=== PATIENT | female | born 1950 | race Caucasian/White ===

== ENCOUNTER 2022-04-09 22:51 | Emergency (ER) | payer MEDICARE, SELFPAY ==
[2022-04-09 22:53] VITALS: BMI 23.8
[2022-04-09 22:58] VITALS: BP 195/99; PULSE 85; RESP 14; TEMP 36.8; O2SAT 99
--- NOTE | 2022-04-09 22:58 | CTR_ITS ---
PROCEDURE INFORMATION: Exam: CT Abdomen And Pelvis Without Contrast Exam date and time: 04/09/2022 11:11 PM Age: 71 years old Clinical indication: Abdominal pain; Patient HX: Left flank pain with hematuria. ; Additional info: Left flank pain, hematuria TECHNIQUE: Imaging protocol: Computed tomography of the abdomen and pelvis without contrast. Radiation optimization: All CT scans at this facility use at least one of these dose optimization techniques: automated exposure control; mA and/or kV adjustment per patient size (includes targeted exams where dose is matched to clinical indication); or iterative reconstruction. Other protocol: This patient has received 0 known CTs and 0 known cardiac nuclear medicine studies in the 12 months prior to the current study. COMPARISON: No relevant prior studies available. RADIATION DOSE METRICS: Total DLP (mGy-cm): 385.43 FINDINGS: Emphysematous changes. Bibasilar atelectasis. Liver: Normal. No mass. Gallbladder and bile ducts: Normal. No calcified stones. No ductal dilation. Pancreas: Normal. No ductal dilation. Spleen: Normal. No splenomegaly. Adrenal glands: Normal. No mass. Kidneys and ureters: Left proximal to mid ureter 4.1 mm calculus with moderate hydronephrosis and hydroureter with perinephric edema perhaps reflecting pyelonephritis. Left kidney lower pole punctate nonobstructing renal calyceal stones. Stomach and bowel: Diverticulosis without diverticulitis. Appendix: No evidence of appendicitis. Intraperitoneal space: Unremarkable. No free air. No significant fluid collection. Vasculature: Unremarkable. No abdominal aortic aneurysm. Lymph nodes: Unremarkable. No enlarged lymph nodes. Urinary bladder: Unremarkable as visualized. Reproductive: Unremarkable as visualized. Bones/joints: Unremarkable. No acute fracture. Soft tissues: Unremarkable. CT/CT kidney stone [id number] IMPRESSION: 1. Left proximal to mid ureter 4.1 mm calculus with moderate hydronephrosis and hydroureter with perinephric edema perhaps reflecting pyelonephritis. 2. Diverticulosis without diverticulitis. 3. Emphysematous changes. 4. Bibasilar atelectasis. 5. Left kidney lower pole punctate nonobstructing renal calyceal stones.
--- NOTE | 2022-04-09 22:58 | W.ED.ABDPA2 ---
HPI - Abdominal Pain General: Chief Complaint: Abdominal Pain Stated Complaint: L FLANK PAIN Time Seen by Provider: 04/09/22 22:58 History of Present Illness: 71-year-old female comes in today with complaints of left flank pain radiating into the groin. Patient noticed some blood about 2 weeks ago that cleared up from her urine then last night she started having some pain and noticing blood again. Patient reports tonight the pain was worse and she was unable to tolerate at home and came into the ER for further evaluation. Patient reports some nausea but no vomiting. Patient does report some chills at times. Associated Symptoms: Reports hematuria Review of Systems : Reports: flank pain and hematuria PFSH ED PFSH: Medical History (Updated 04/09/22 @ 23:43 by JENIFFER Romo) Hyperlipidemia Hypertension Family History Denies family history of Diabetes CAD (coronary artery disease) Cancer Social History Smoking and tobacco status: never smoked Alcohol intake: current Alcohol intake frequency: holidays/special occasions only Physical Exam Const: COMMON NORMALS: patient oriented x3 HENMT: COMMON NORMALS: normocephalic HEAD & SCALP: normocephalic Neck/C-Spine: COMMON NORMALS: full ROM Resp: COMMON NORMALS: normal respiratory effort Cardio: COMMON NORMALS: regular rate RATE: regular rate GI: COMMON NORMALS: Soft to palpation PALPATION: Yes Soft to palpation and Yes Tenderness to palpation present (GI) Details: LLQ : COMMON NORMALS: Yes no CVA tenderness BLADDER/KIDNEY EXAM: Yes no CVA tenderness Back/Pelvis: COMMON NORMALS: no CVA tenderness Extremity: COMMON NORMALS: no pedal edema Neuro: COMMON NORMALS: patient oriented x3 Skin: COMMON NORMALS: turgor normal GENERAL SKIN EXAM: turgor normal Course Vital Signs: Vital signs: Vital Signs Temperature 98.3 F 04/09/22 22:58 Pulse Rate 85 04/09/22 22:58 Respiratory Rate 18 04/09/22 23:08 Blood Pressure 195/99 04/09/22 22:58 Pulse Oximetry 99 04/09/22 22:58 Oxygen Delivery Me thod 04/09/22 22:58 MDM - Abdominal Pain Medical Decision Making 71-year-old female comes in today with complaints of left flank pain radiating to the groin. Abdomen is soft with some left lower quadrant tenderness. Vital signs are normal except for elevation of blood pressure 195 systolic. Differential diagnosis includes UTI, renal calculi, pyelonephritis. CBC was unremarkable. CMP did note a mild bump in the creatinine 1.4. CT of the abdomen pelvis noted a 4 mm stone in the mid left ureter with some mild perinephric stranding, urinalysis had a large amount of blood. No sign of serious infection was noted. Due to the perinephric stranding I did go ahead and give 1 g of ceftriaxone. Patient pain was brought under control by 2 mg of morphine sulfate. Patient was written prescriptions for hydrocodone, tamsulosin, and ondansetron. Reviewed recommendations with patient with need for follow-up or return to the ER. Patient reported understanding and agreed to plan. Case management was requested assistance for follow-up appointment with urology. Lab Data 04/09/22 22:59 04/09/22 22:59 Labs/Radiology: Radiology Impressions Abdomen/Pelvis CT 04/09/22 22:58 IMPRESSION: 1. Left proximal to mid ureter 4.1 mm calculus with moderate hydronephrosis and hydroureter with perinephric edema perhaps reflecting pyelonephritis. 2. Diverticulosis without diverticulitis. 3. Emphysematous changes. 4. Bibasilar atelectasis. 5. Left kidney lower pole punctate nonobstructing renal calyceal stones. Laboratory Results WBC 11.6 10^3/uL (4.0-10.0) H 04/09/22 22: RBC 4.87 10^6/uL (4.1-5.3) 04/09/22 22:59 Hgb 14.4 g/dL (11.5-15.3) 04/09/22 22: Hct 43.5 % (37.0-47.0) 04/09/22 22: MCV 89.3 fl (81-99) 04/09/22 22:59 MCH 29.6 pg (28.0-34.0) 04/09/22 22: MCHC 33.1 g/dL (30.0-36.0) 04/09/22 22: RDW 12.1 % (12.1-15.1) 04/09/22 22:59 Plt Count 264 10^3/cmm (130-400) 04/09/22 22:59 MPV 10.4 fL (7.4-10.4) 04/09/22 22:59 Neut % (Auto) 80.9 % 04/09/22 22:59 Lymph % (Auto) 12.4 % 04/09/22 22:59 [place] % (Auto) 5.9 % 04/09/22 22:59 Eos % (Auto) 0.3 % 04/09/22 22:59 Baso % (Auto) 0.3 % 04/09/22 22:59 Neut # (Auto) 9.40 10^3/uL (1.8-7.7) H 04/09/22 22:59 Lymph # (Auto) 1.4 10^3/uL (0.8-4.8) 04/09/22 22:59 [place] # (Auto) 0.7 10^3/uL (0.2-0.9) 04/09/22 22:59 Eos # (Auto) 0.0 10^3/uL (0.0-0.8) 04/09/22 22:59 Baso # (Auto) 0.0 10^3/uL (0.0-0.1) 04/09/22 22:59 Nucleated RBC % (auto) 0 % 04/09/22 22:59 Nucleated RBCs # 0.0 /100WBC 04/09/22 22:59 Sodium 138 mmol/L (136-145) 04/09/22 22:59 Potassium 4.0 mmol/L (3.5-5.1) 04/09/22 22:59 Chloride 100 mmol/L (98-107) 04/09/22 22:59 Carbon Dioxide 24 mmol/L (22-29) 04/09/22 22:59 Anion Gap 18.0 (5-19) 04/09/22 22:59 BUN 32 mg/dL (8-23) H 04/09/22 22:59 Creatinine 1.4 mg/dL (0.5-0.9) H 04/09/22 22:59 GFR Calculation Not Reportable 04/09/22 22:59 Glucose 163 mg/dL (65-115) H 04/09/22 22:59 Calculated Osmolality 296 mOsm/kg (285-295) H 04/09/22 22:59 Calcium 9.9 mg/dL (8.5-10.5) 04/09/22 22:59 Total Bilirubin 0.5 mg/dL (0.15-1.2) 04/09/22 22:59 AST 30 U/L (0-32) 04/09/22 22:59 ALT 24 U/L (0-33) 04/09/22 22:59 Alkaline Phosphatase 100 U/L (35-105) 04/09/22 22:59 Total Protein 7.6 g/dL (6.6-8.7) 04/09/22 22:59 Albumin 4.6 g/dL (3.5-5.2) 04/09/22 22:59 Globulin 3.0 g/dL (1.3-4.6) 04/09/22 22:59 Lipase 28 U/L (13-60) 04/09/22 22:59 Urine Color Yellow (Yellow) 04/09/22 23:10 Urine Appearance Sl cloudy (CLEAR) A 04/09/22 23:10 Urine pH 6 (5-7) 04/09/22 23:10 Ur Specific [place] 1.020 (1.005-1.030) 04/09/22 23:10 Urine Protein Trace (Negative) 04/09/22 23:10 Urine Glucose (UA) Norm (Normal) 04/09/22 23:10 Urine Ketones 1+ (Negative) H 04/09/22 23:10 Urine Blood 3+ (Negative) H 04/09/22 23:10 Urine Nitrate Negative (Negative) 04/09/22 23:10 Urine Bilirubin Neg (Negative) 04/09/22 23:10 Urine Urobilinogen Norm mg/dL (Negative) 04/09/22 23:10 Ur Leukocyte Esterase 1+ (Negative) H 04/09/22 23:10 Urine RBC Too numerous to cnt /hpf (0-2) H 04/09/22 23:10 Urine WBC 10-15 /hpf (0-5) H 04/09/22 23:10 Ur Squamous Epith Cells 0-4 /hpf (0-5) H 04/09/22 23:10 Ur Renal Epithelial Cell 0-1 /hpf 04/09/22 23:10 Amorphous Sediment Not Reportable 04/09/22 23:10 Urine Bacteria 2+ /hpf (NONE) H 04/09/22 23:10 Discharge Plan Discharge Patient Disposition: Home Clinical Impression: Ureteral calculus, left Condition: Stable Prescriptions: New tamsulosin 0.4 mg capsule 0.4 mg PO DAILY Qty: 14 0RF ondansetron 4 mg tablet,disintegrating 4 mg PO Q8H PRN (Reason: nausea and vomiting) Qty: 14 0RF hydrocodone-acetaminophen 5-325 mg tablet 1 tab PO Q6H PRN (Reason: pain (scale score 7-10)) Qty: 20 0RF No Action pravastatin 40 mg tablet 40 mg PO DAILY aspirin [Adult Low Dose Aspirin] 81 mg tablet,delayed release (DR/EC) 81 mg PO DAILY magnesium 250 mg tablet 250 mg PO DAILY cholecalciferol (vitamin D3) 25 mcg (1,000 unit) capsule 25 mcg PO DAILY omega 4-[id number]-[id number]-fish oil [Fish Oil] 60-90-500 mg capsule 1 cap PO DAILY [id number]-Ca carb-vit K 18 mg iron-400 mcg-500 mg tablet 1 tab PO DAILY Discharge Orders: Discharge ED (Routine); Ordered 04/09/22 Ordered By: Philippe Tello Discharge Diet: Usual diet Discharge Activity: Increase activity as tolerated Activity Restrictions/Additional Instructions: Home and rest. Take medication as directed for pain and discomfort. Use hydrocodone 5 mg tablets 1 tablet every 6 hours as needed for pain. Use ondansetron 4 mg 1 tablet every 8 hours as needed for nausea or vomiting. Use tamsulosin daily to allow for laxation of the ureter and passage of the stone. Follow-up with urologist for further treatment and evaluation. Case management will contact you regarding the appointment for the urology. Return to the ER for worsening symptoms such as high fever greater than 100.4, inability to hold fluids down, or uncontrolled pain. 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
[2022-04-09 23:08] VITALS: RESP 18
[2022-04-09] MEDS: morphine 4 mg/mL SDV 1 mL 2 MG IVP (23:08)
[2022-04-09 23:17] LABS: Basophils % 0.3 %; Eosinophils % 0.3 %; Hematocrit 43.5 % (37.0-47.0); Hemoglobin 14.4 g/dL (11.5-15.3); Lymphocytes # 1.4 10^3/uL (0.8-4.8); Lymphocytes % 12.4 %; Mean Corpuscular HGB Conc 33.1 g/dL (30.0-36.0); Mean Corpuscular Hemoglobin 29.6 pg (28.0-34.0); Mean Corpuscular Volume 89.3 fl (81-99); Mean Platelet Volume 10.4 fL (7.4-10.4); Monocytes # 0.7 10^3/uL (0.2-0.9); Monocytes % 5.9 %; Neutrophils % 80.9 %; Nucleated Red Blood Cells % 0 %; Platelet Count 264 10^3/cmm (130-400); Red Blood Count 4.87 10^6/uL (4.1-5.3); Red Cell Distribution Width 12.1 % (12.1-15.1); White Blood Count 11.6 10^3/uL (4.0-10.0)
[2022-04-09 23:21] LABS: Alanine Aminotransferase 24 U/L (0-33); Albumin Level 4.6 g/dL (3.5-5.2); Alkaline Phosphatase 100 U/L (35-105); Aspartate Amino Transferase 30 U/L (0-32); Blood Urea Nitrogen 32 mg/dL (8-23); Calcium 9.9 mg/dL (8.5-10.5); Carbon Dioxide 24 mmol/L (22-29); Chloride 100 mmol/L (98-107); Glucose 163 mg/dL (65-115); Lipase 28 U/L (13-60); Osmolality Calculated 296 mOsm/kg (285-295); Sodium 138 mmol/L (136-145); Total Bilirubin 0.5 mg/dL (0.15-1.2); Total Protein 7.6 g/dL (6.6-8.7)
[2022-04-09 23:31] LABS: Urine Color Yellow (Yellow)
[2022-04-09 23:32] LABS: Add Urine Microscopic? YES; Bilirubin Urine Neg (Negative); Blood Urine 3+ (Negative); Glucose Urine UA Norm (Normal); Ketones Urine 1+ (Negative); Leukocyte Esterase Urine 1+ (Negative); Nitrate Urine Negative (Negative); Protein Urine Trace (Negative); RBC Urine TOO NUMEROUS TO CNT /hpf (0-2); Renal Epithelial Cells Urine 0-1 /hpf; Squamous Epithelial Cell Urine 0-4 /hpf (0-5); Urobilinogen Urine Norm (Negative); pH Urine 6 (5-7)
[2022-04-09 23:33] LABS: Add Urine Culture? Yes; Bacteria Urine 2+ /hpf
[2022-04-10] MEDS: cefTRIAXone 1,000 MG in sodium chloride 0.9% (plus) 50 ML 100 MG IV (00:12)
[2022-04-10] MEDS: morphine 4 mg/mL SDV 1 mL IVP (00:56)
[2022-04-10] MEDS: HYDROcodone-acetaminophen 5-325 mg Tablet 2 TAB PO (00:57)
--- NOTE | 2022-04-10 10:50 | DCPLANNER ---
Addendum entered by Stella Kilgore 04/10/22 15:47: manager ethics received the following message from the urology clinic regarding follow up appointment: Refer patient elsewhere Thank you. On 04/10/22 @ 11:19 Stella Kilgore Wrote To Urology Front Office Just to clarify, do I need to refer patient somewhere else, or will an appointment be scheduled for patient when he returns? On 04/10/22 @ 10:52 Henrietta Ramirez Wrote To Stella Kilgore Dr. Zaman is out of the office until 04/20/22 manager ethics called and spoke with patient to confirm where patient would like to be referred to. Patient stated that she would like to wait and follow up and talk with her pcp. 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 Original Note: manager ethics had message to schedule a follow up appointment for patient with urology. manager ethics sent patients information to the front office staff at urology. Patients information will be printed and reviewed. Clinic will call patient with appointment information.
== END 2022-04-10 01:33 | disposition home or self-care (01) ==
PROVIDERS: Emergency Provider Nurse Practitioner Family; PCP Family Medicine
DX: N13.2 Hydronephrosis with renal and ureteral calculous obstruction (principal); Z79.82 Long term (current) use of aspirin; E78.5 Hyperlipidemia, unspecified; I10 Essential (primary) hypertension
CPT/HCPCS: 74176; 80053; 81001; 83690; 85025; 87086; 96365; 96375; 96376; 99285; J0696; J2270

== ENCOUNTER → 2022-04-13 10:10 | Outpatient (BNVA) | payer MEDICARE, SELFPAY | PROVIDERS: PCP Family Medicine; Visit Provider Family Medicine | DX: R31.9 Hematuria, unspecified (principal); N20.1 Calculus of ureter; I10 Essential (primary) hypertension; E78.5 Hyperlipidemia, unspecified | CPT/HCPCS: 81000 ==

== ENCOUNTER → 2022-06-22 09:18 | Outpatient (BNVA) | payer MEDICARE, SELFPAY | PROVIDERS: PCP Family Medicine; Visit Provider Family Medicine | DX: E78.5 Hyperlipidemia, unspecified (principal); I10 Essential (primary) hypertension | CPT/HCPCS: 80053; 80061; 84439; 84443; 85025 ==

== ENCOUNTER → 2023-09-27 16:47 | Outpatient (BNVA) | payer MEDICARE, SELFPAY | PROVIDERS: PCP Family Medicine; Visit Provider Nurse Practitioner Family | DX: E78.5 Hyperlipidemia, unspecified (principal) | CPT/HCPCS: 80053; 80061 ==

== ENCOUNTER → 2024-03-31 13:00 | Outpatient (BNVA) | payer MEDICARE, SELFPAY | PROVIDERS: PCP Nurse Practitioner Family; Visit Provider Nurse Practitioner Family | DX: I10 Essential (primary) hypertension (principal) | CPT/HCPCS: 80053; 80061 ==

== ENCOUNTER 2024-05-19 22:57 | Inpatient (IN) | payer MEDICARE, SELFPAY ==
[2024-05-19 23:03] VITALS: BP 125/83; PULSE 111; RESP 18; TEMP 36.3; O2SAT 93
--- NOTE | 2024-05-19 23:25 | CTR_ITS ---
PROCEDURE INFORMATION: Exam: CT Abdomen And Pelvis Without Contrast Exam date and time: 05/20/2024 2:25 AM Age: 74 years old Clinical indication: Pain and abnormal findings; Abnormal lab test; Other: Microhematuria; Nausea and vomiting; Abdominal pain; Localized; Lower abd pain with n/v and hematuria. History of renal stones. ; Additional info: Abdominal pain, hematuria, history of kidney stones TECHNIQUE: Imaging protocol: Computed tomography of the abdomen and pelvis without contrast. Radiation optimization: All CT scans at this facility use at least one of these dose optimization techniques: automated exposure control; mA and/or kV adjustment per patient size (includes targeted exams where dose is matched to clinical indication); or iterative reconstruction. COMPARISON: CT kidney stone [id number] 04/09/2022 11:11 PM RADIATION DOSE METRICS: Total DLP (mGy-cm): 433.41 FINDINGS: Lungs: Extensive bronchiectasis and chronic inflammatory change bases. Liver: Normal. No mass. Gallbladder and biliary ducts: Dependent gallstones and sludge. Pancreas: Heterogeneous indistinct pancreas. Extensive surrounding fluid. Spleen: Normal. No splenomegaly. Adrenal glands: Normal. No mass. Kidneys and ureters: Normal. No hydronephrosis. Stomach and bowel: Diverticulosis colon. Appendix: No evidence of appendicitis. Intraperitoneal space: Moderate ascites. Vasculature: Unremarkable. No abdominal aortic aneurysm. Lymph nodes: Unremarkable. No enlarged lymph nodes. Urinary bladder: Unremarkable as visualized. Reproductive: Unremarkable as visualized. Bones/joints: Unremarkable. No acute fracture. Soft tissues: Unremarkable. CT/CT kidney stone [id number] IMPRESSION: Findings compatible with severe pancreatitis.
[2024-05-19 23:55] LABS: Basophils % 0.2 %; Hematocrit 49.4 % (36-47); Lymphocytes % 7.8 %; Mean Corpuscular HGB Conc 33.4 g/dL (30-55); Mean Corpuscular Hemoglobin 30.1 pg (27-33); Mean Corpuscular Volume 90.1 fl (85-98); Mean Platelet Volume 10.6 fL (7.4-10.4); Monocytes # 0.8 10^3/uL (0.2-0.9); Monocytes % 6.1 %; Neutrophils # 10.84 10^3/uL (1.8-7.7); Neutrophils % 85.7 %; Nucleated Red Blood Cells % 0 %; Platelet Count 224 10^3/cmm (157-399); Red Blood Count 5.48 10^6/uL (3.85-5.65); Red Cell Distribution Width 11.9 % (12.1-15.1); White Blood Count 12.64 10^3/uL (3.29-11.43)
[2024-05-20] VITALS (23 sets, daily range): BP systolic 114–146; BP diastolic 74–90; PULSE 10–109; RESP 14–26; TEMP 36.2–37.1; O2SAT 90–98; BMI 26.1
[2024-05-20 00:12] LABS: Alanine Aminotransferase 327 U/L (0-33); Alkaline Phosphatase 160 U/L (35-105); Anion Gap 25.8 (5-19); Aspartate Amino Transferase 161 U/L (0-32); Blood Urea Nitrogen 52 mg/dL (8-23); Carbon Dioxide 17 mmol/L (22-29); Chloride 93 mmol/L (98-107); Creatinine Clr Calc Pharmacy 19.1258; Globulin 3.2 g/dL (1.3-4.6); Glucose 366 mg/dL (65-115); Magnesium 2.1 mg/dL (1.7-2.3); Osmolality Calculated 301 mOsm/kg (285-295); Potassium 4.8 mmol/L (3.5-5.1); Sodium 131 mmol/L (136-145); Total Bilirubin 0.7 mg/dL (0.15-1.2); Total Protein 7.2 g/dL (6.6-8.7)
[2024-05-20] MEDS: sodium chloride 0.9% 1,000 ML 999 ML IV ×2 (02:46→10:20)
[2024-05-20] MEDS: morphine 4 mg/mL SDV 1 mL IVP (02:47)
[2024-05-20] MEDS: ondansetron 2 mg/ML SDV 2 mL 4 MG IVP (02:47)
--- NOTE | 2024-05-20 02:49 | W.ED.ABDPA2 ---
Documented by User: Kodak Chambers DO 05/20/24 05:07 HPI - Abdominal Pain General: Chief Complaint: Abdominal Pain Stated Complaint: ABD Pain Time Seen by Provider: 05/20/24 02:27 History of Present Illness: Patient presents to the ER with complaints of nausea vomiting abdominal pain. Started last night. Abdomen is tender diffusely and hurts to move due to her take a big deep breath. Patient noted she might have some blood in her urine yesterday. She does have a history of renal stones, denies any abdominal surgery. Denies any fevers chills Related Data Home Medications ?Medication ?Instructions ?Recorded ?Confirmed aspirin 81 mg tablet,delayed 81 mg PO DAILY 03/23/22 05/20/24 release (Adult Low Dose Aspirin) mecobalamin (vitamin B12) 1,000 1,000 mcg sublingual DAILY 04/02/23 05/20/24 mcg disintegrating tablet,sublingual krill oil 500 mg capsule 500 mg PO DAILY 03/31/24 05/20/24 multivitamin 1 tab PO DAILY 03/31/24 05/20/24 Previous Rx's ?Medication ?Instructions ?Recorded lisinopril 20 mg tablet 20 mg PO DAILY #90 tabs 12/01/23 Allergies Allergy/AdvReac Type Severity Reaction Status Date / Time No Known Allergies Allergy Verified 05/19/24 23:10 Review of Systems General: Reports: 10 or more systems reviewed and unremarkable except in HPI and below PFSH ED PFSH: Medical History (Updated 05/20/24 @ 16:20 by Bienvenido Kurtz DO) Hypertension Hyperlipidemia Surgical History (Updated 05/20/24 @ 15:04 by Winston Valverde MD) History of tonsillectomy History of ear surgery RIGHT EAR DRUM Family History Denies family history of Diabetes CAD (coronary artery disease) Cancer Social History Smoking and tobacco/nicotine status: never used tobacco/nicotine Alcohol intake: current Alcohol intake frequency: holidays/special occasions only Physical Exam Const: COMMON NORMALS: no acute distress, average body habitus, patient oriented x3, no limitations, healthy appearing, alert and well nourished HENMT: COMMON NORMALS: normocephalic, atraumatic, hearing grossly normal bilaterally, external ears normal, Normal external nose present, moist oral mucous membranes and oropharynx normal HEAD & SCALP: normocephalic and atraumatic NOSE: Normal external nose present EXTERNAL EAR: Yes external ears normal Neck/C-Spine: COMMON NORMALS: no JVD Chest: COMMONS NORMALS: normal inspection of the chest and normal palpation of entire chest wall Resp: COMMON NORMALS: normal respiratory effort, No retractions, No use of accessory muscles and clear to auscultation bilaterally AUSCULTATION: clear to auscultation bilaterally Cardio: COMMON NORMALS: no JVD, regular rate, regular rhythm, S1 normal heart sound present, S2 normal heart sound present, No gallops present (Cardio), No clicks present (Cardio), No murmurs present (Cardio) and No rub (Cardio) RATE: regular rate RHYTHM: regular rhythm HEART SOUNDS: S1 normal heart sound present and S2 normal heart sound present GI: COMMON NORMALS: Normal to inspection, nondistended, normoactive bowel sounds present, Soft to palpation, No hepatosplenomegaly present and no masses; negative for non-tender (Diffusely exquisitely tender throughout) PALPATION: Yes Soft to palpation and Yes No hepatosplenomegaly present Neuro: COMMON NORMALS: patient oriented x3 SENSORIUM/ORIENTATION: Yes alert Course Vital Signs: Vital signs: Vital Signs Temperature 97.1 F L 05/20/24 13:41 Pulse Rate 108 H 05/20/24 13:41 Respiratory Rate 14 05/20/24 13:41 Blood Pressure 114/74 05/20/24 13:41 Pulse Oximetry 93 05/20/24 13:41 Oxygen Delivery Me thod Room Air 05/20/24 13:41 MDM - Abdominal Pain Medical Decision Making Lab work showed CBC at 12.6, BUN/creatinine 52 and 2.3, lactic acid 5.9, AST 160, ALT 327, alk phos 160, total bili 0.7, lipase 2703. CT scan showed findings compatible with severe pancreatitis, but it also says she does have a gallstone but does not see anything about ductal dilation.. Patient was given septic bolus of fluid, 3.375 g of Zosyn, 4 mg of morphine, 4 mg of Zofran, these results was discussed with the patient. These results was discussed with Dr. Wisdom. He is concerned she may have gallstone pancreatitis or a stone in one of her ducts. He requests an ultrasound right upper quadrant and an MRCP. If these are normal he will admit her here. Medical Records I reviewed the patient's medical records. Lab Data I reviewed the patient's lab results. 05/20/24 15:41 05/20/24 00:00 Labs/Radiology: Radiology Impressions Abdomen/Pelvis CT 05/19/24 23:25 IMPRESSION: Findings compatible with severe pancreatitis. Abdomen Ultrasound 05/20/24 05:06 IMPRESSION: 1. Cholelithiasis and mild gallbladder wall thickening, likely reactive. 2. Common bile duct dilatation to approximately 1 cm. Correlate with LFTs and, if clinically indicated, ERCP or MRCP. 3. Small upper abdominal ascites. 4. Echogenic right kidney, suggesting medical renal disease. 5. Additional findings, as above. Cholangiopancreatography MRI 05/20/24 06:20 IMPRESSION: 1. There is some progressive abdominal fluid, inflammatory appearance overall with the clinically provided history provided of pancreatitis. 2. The gallbladder is patulous with some associated wall thickening and layering sludge, small gallstones. Some superimposed early inflammation could also present in this fashion. 3. There is some central ductal dilatation although no persistent filling defects are currently appreciated. Distal, ampullary level evaluation is however somewhat limited. Overall, consider pancreatic and hepatobiliary laboratory profile studies to evaluate for interval progression. If there is persistent clinical concern for partial obstructive or clinical jaundice type changes then consider direct visualization with ERCP when clinically feasible. Laboratory Results WBC 12.64 10^3/uL (3.29-11.43) H 05/19/24 23:47 RBC 5.48 10^6/uL (3.85-5.65) 05/19/24 23:47 Hgb 16.50 g/dL (11.27-16.99) 05/19/24 23:47 Hct 49.4 % (36-47) H 05/19/24 23:47 MCV 90.1 fl (85-98) 05/19/24 23:47 MCH 30.1 pg (27-33) 05/19/24 23:47 MCHC 33.4 g/dL (30-55) 05/19/24 23:47 RDW 11.9 % (12.1-15.1) L 05/19/24 23:47 Plt Count 224 10^3/cmm (157-399) 05/19/24 23:47 MPV 10.6 fL (7.4-10.4) H 05/19/24 23:47 Neut % (Auto) 85.7 % 05/19/24 23:47 Lymph % (Auto) 7.8 % 05/19/24 23:47 [place] % (Auto) 6.1 % 05/19/24 23:47 Eos % (Auto) 0.0 % 05/19/24 23:47 Baso % (Auto) 0.2 % 05/19/24 23:47 Neut # (Auto) 10.84 10^3/uL (1.8-7.7) H 05/19/24 23:47 Lymph # (Auto) 1.0 10^3/uL (0.8-4.8) 05/19/24 23:47 [place] # (Auto) 0.8 10^3/uL (0.2-0.9) 05/19/24 23:47 Eos # (Auto) 0.0 10^3/uL (0.0-0.8) 05/19/24 23:47 Baso # (Auto) 0.0 10^3/uL (0.0-0.1) 05/19/24 23:47 Nucleated RBC % (auto) 0 % 05/19/24 23:47 Nucleated RBCs # 0.0 /100WBC 05/19/24 23:47 Sodium 136 mmol/L (136-145) 05/20/24 00:00 Potassium 5.2 mmol/L (3.5-5.1) H 05/20/24 00:00 Chloride 95 mmol/L (98-107) L 05/20/24 00:00 Carbon Dioxide 14 mmol/L (22-29) L 05/20/24 00:00 Anion Gap 32.2 (5-19) H 05/20/24 00:00 BUN 52 mg/dL (8-23) H 05/20/24 00:00 Creatinine 2.0 mg/dL (0.5-0.9) H 05/20/24 00:00 GFR Calculation Not Reportable 05/20/24 00:00 Glucose 333 mg/dL (65-115) H 05/20/24 00:00 Calculated Osmolality 309 mOsm/kg (285-295) H 05/20/24 00:00 Lactic Acid 5.9 mmol/L (0.5-2.2) H* 05/20/24 00:00 Lactic Acid (Sepsis) 4.0 mmol/L (0.5-2.2) H 05/20/24 05:00 Calcium 9.0 mg/dL (8.5-10.5) 05/20/24 00:00 Magnesium 2.1 mg/dL (1.7-2.3) 05/19/24 23:47 Iron 28 ug/dL (37-145) L 05/20/24 00:00 TIBC 266 mcg/dl 05/20/24 00:00 % Saturation 10.5 % (20-50) L 05/20/24 00:00 Unsat Iron Binding 238 ug/dL (112-347) 05/20/24 00:00 Total Bilirubin 0.7 mg/dL (0.15-1.2) 05/20/24 00:00 AST 163 U/L (0-32) H 05/20/24 00:00 ALT 330 U/L (0-33) H 05/20/24 00:00 Alkaline Phosphatase 153 U/L (35-105) H 05/20/24 00:00 Total Protein 7.1 g/dL (6.6-8.7) 05/20/24 00:00 Albumin 4.2 g/dL (3.5-5.2) 05/20/24 00:00 Globulin 2.9 g/dL (1.3-4.6) 05/20/24 00:00 Triglycerides 118 mg/dL (0-150) 05/20/24 00:00 Lipase 2703 U/L (13-60) H 05/20/24 00:00 Vitamin B12 1452 pg/mL (232-1245) H 05/20/24 00:00 Procalcitonin 0.61 ng/mL (0-0.5) H 05/20/24 00:00 TSH 1.21 uIU/mL (0.27-4.20) 05/20/24 00:00 Urine Color Dark yellow (Yellow) A 05/20/24 04:17 Urine Appearance Cloudy (CLEAR) A 05/20/24 04:17 Urine pH 5.0 (5-7) 05/20/24 04:17 Ur Specific Walker 1.020 (1.005-1.030) 05/20/24 04:17 Urine Protein 2+ (Negative) A 05/20/24 04:17 Urine Glucose (UA) 2+ (Normal) H 05/20/24 04:17 Urine Ketones Trace (Negative) 05/20/24 04:17 Urine Blood 1+ (Negative) A 05/20/24 04:17 Urine Nitrate Negative (Negative) 05/20/24 04:17 Urine Bilirubin Negative (Negative) 05/20/24 04:17 Urine Urobilinogen 1.0 mg/dL (Negative) 05/20/24 04:17 Ur Leukocyte Esterase Negative (Negative) 05/20/24 04:17 Urine RBC 0-2 /hpf (0-2) 05/20/24 04:17 Urine WBC 0-5 /hpf (0-5) 05/20/24 04:17 Ur Squamous Epith Cells 11-20 /hpf (0-5) H 05/20/24 04:17 Amorphous Sediment Not Reportable 05/20/24 04:17 Urine Bacteria Trace /hpf (NONE) 05/20/24 04:17 Hyaline Casts 44.66 /lpf 05/20/24 04:17 All radiology interpretation(s) finalized by discharge Discharge Plan Discharge Patient Disposition: Admitted As Inpatient Admit Provider: Winston Valverde Clinical Impression: Acute pancreatitis, Acute kidney injury, Sepsis Condition: Stable Coding Level of Care Code ED Storyboard Artist for Chg Fwd Documented by User: Bienvenido Kurtz DO 05/20/24 16:20 HPI - Abdominal Pain General: Chief Complaint: Abdominal Pain Stated Complaint: ABD Pain Time Seen by Provider: 05/20/24 02:27 Related Data Home Medications ?Medication ?Instructions ?Recorded ?Confirmed aspirin 81 mg tablet,delayed 81 mg PO DAILY 03/23/22 05/20/24 release (Adult Low Dose Aspirin) mecobalamin (vitamin B12) 1,000 1,000 mcg sublingual DAILY 04/02/23 05/20/24 mcg disintegrating tablet,sublingual krill oil 500 mg capsule 500 mg PO DAILY 03/31/24 05/20/24 multivitamin 1 tab PO DAILY 03/31/24 05/20/24 Previous Rx's ?Medication ?Instructions ?Recorded lisinopril 20 mg tablet 20 mg PO DAILY #90 tabs 12/01/23 Allergies Allergy/AdvReac Type Severity Reaction Status Date / Time No Known Allergies Allergy Verified 05/19/24 23:10 [facility]: Medical History (Updated 05/20/24 @ 16:20 by Bienvenido Kurtz DO) Hypertension Hyperlipidemia Surgical History (Updated 05/20/24 @ 15:04 by Winston Valverde MD) History of tonsillectomy History of ear surgery RIGHT EAR DRUM Family History Denies family history of Diabetes CAD (coronary artery disease) Cancer Social History Smoking and tobacco/nicotine status: never used tobacco/nicotine Alcohol intake: current Alcohol intake frequency: holidays/special occasions only Course Vital Signs: Vital signs: Vital Signs Temperature 97.1 F L 05/20/24 13:41 Pulse Rate 108 H 05/20/24 13:41 Respiratory Rate 14 05/20/24 13:41 Blood Pressure 114/74 05/20/24 13:41 Pulse Oximetry 93 05/20/24 13:41 Oxygen Delivery Me thod Room Air 05/20/24 13:41 MDM - Abdominal Pain Medical Decision Making Lab work showed CBC at 12.6, BUN/creatinine 52 and 2.3, lactic acid 5.9, AST 160, ALT 327, alk phos 160, total bili 0.7, lipase 2703. CT scan showed findings compatible with severe pancreatitis, but it also says she does have a gallstone but does not see anything about ductal dilation.. Patient was given septic bolus of fluid, 3.375 g of Zosyn, 4 mg of morphine, 4 mg of Zofran, these results was discussed with the patient. These results was discussed with Dr. Wisdom. He is concerned she may have gallstone pancreatitis or a stone in one of her ducts. He requests an ultrasound right upper quadrant and an MRCP. If these are normal he will admit her here. Care assumed at change of shift mild dilation of the common bile duct. MRCP does not show any obstruction. Discussed with Dr. Valverde and with Dr. Hollis who will consult. Will admit orders have been written. Lab Data 05/20/24 15:41 05/20/24 00:00 Labs/Radiology: Radiology Impressions Abdomen/Pelvis CT 05/19/24 23:25 IMPRESSION: Findings compatible with severe pancreatitis. Abdomen Ultrasound 05/20/24 05:06 IMPRESSION: 1. Cholelithiasis and mild gallbladder wall thickening, likely reactive. 2. Common bile duct dilatation to approximately 1 cm. Correlate with LFTs and, if clinically indicated, ERCP or MRCP. 3. Small upper abdominal ascites. 4. Echogenic right kidney, suggesting medical renal disease. 5. Additional findings, as above. Cholangiopancreatography MRI 05/20/24 06:20 IMPRESSION: 1. There is some progressive abdominal fluid, inflammatory appearance overall with the clinically provided history provided of pancreatitis. 2. The gallbladder is patulous with some associated wall thickening and layering sludge, small gallstones. Some superimposed early inflammation could also present in this fashion. 3. There is some central ductal dilatation although no persistent filling defects are currently appreciated. Distal, ampullary level evaluation is however somewhat limited. Overall, consider pancreatic and hepatobiliary laboratory profile studies to evaluate for interval progression. If there is persistent clinical concern for partial obstructive or clinical jaundice type changes then consider direct visualization with ERCP when clinically feasible. Laboratory Results WBC 12.64 10^3/uL (3.29-11.43) H 05/19/24 23:47 RBC 5.48 10^6/uL (3.85-5.65) 05/19/24 23:47 Hgb 16.50 g/dL (11.27-16.99) 05/19/24 23:47 Hct 49.4 % (36-47) H 05/19/24 23:47 MCV 90.1 fl (85-98) 05/19/24 23:47 MCH 30.1 pg (27-33) 05/19/24 23:47 MCHC 33.4 g/dL (30-55) 05/19/24 23:47 RDW 11.9 % (12.1-15.1) L 05/19/24 23:47 Plt Count 224 10^3/cmm (157-399) 05/19/24 23:47 MPV 10.6 fL (7.4-10.4) H 05/19/24 23:47 Neut % (Auto) 85.7 % 05/19/24 23:47 Lymph % (Auto) 7.8 % 05/19/24 23:47 [place] % (Auto) 6.1 % 05/19/24 23:47 Eos % (Auto) 0.0 % 05/19/24 23:47 Baso % (Auto) 0.2 % 05/19/24 23:47 Neut # (Auto) 10.84 10^3/uL (1.8-7.7) H 05/19/24 23:47 Lymph # (Auto) 1.0 10^3/uL (0.8-4.8) 05/19/24 23:47 [place] # (Auto) 0.8 10^3/uL (0.2-0.9) 05/19/24 23:47 Eos # (Auto) 0.0 10^3/uL (0.0-0.8) 05/19/24 23:47 Baso # (Auto) 0.0 10^3/uL (0.0-0.1) 05/19/24 23:47 Nucleated RBC % (auto) 0 % 05/19/24 23: Nucleated RBCs # 0.0 /100WBC 05/19/24 23:47 Sodium 136 mmol/L (136-145) 05/20/24 00:00 Potassium 5.2 mmol/L (3.5-5.1) H 05/20/24 00:00 Chloride 95 mmol/L (98-107) L 05/20/24 00:00 Carbon Dioxide 14 mmol/L (22-29) L 05/20/24 00:00 Anion Gap 32.2 (5-19) H 05/20/24 00:00 BUN 52 mg/dL (8-23) H 05/20/24 00:00 Creatinine 2.0 mg/dL (0.5-0.9) H 05/20/24 00:00 GFR Calculation Not Reportable 05/20/24 00:00 Glucose 333 mg/dL (65-115) H 05/20/24 00:00 Calculated Osmolality 309 mOsm/kg (285-295) H 05/20/24 00:00 Lactic Acid 5.9 mmol/L (0.5-2.2) H* 05/20/24 00:00 Lactic Acid (Sepsis) 4.0 mmol/L (0.5-2.2) H 05/20/24 05:00 Calcium 9.0 mg/dL (8.5-10.5) 05/20/24 00:00 Magnesium 2.1 mg/dL (1.7-2.3) 05/19/24 23:47 Iron 28 ug/dL (37-145) L 05/20/24 00:00 TIBC 266 mcg/dl 05/20/24 00:00 % Saturation 10.5 % (20-50) L 05/20/24 00:00 Unsat Iron Binding 238 ug/dL (112-347) 05/20/24 00:00 Total Bilirubin 0.7 mg/dL (0.15-1.2) 05/20/24 00:00 AST 163 U/L (0-32) H 05/20/24 00:00 ALT 330 U/L (0-33) H 05/20/24 00:00 Alkaline Phosphatase 153 U/L (35-105) H 05/20/24 00:00 Total Protein 7.1 g/dL (6.6-8.7) 05/20/24 00:00 Albumin 4.2 g/dL (3.5-5.2) 05/20/24 00:00 Globulin 2.9 g/dL (1.3-4.6) 05/20/24 00:00 Triglycerides 118 mg/dL (0-150) 05/20/24 00:00 Lipase 2703 U/L (13-60) H 05/20/24 00:00 Vitamin B12 1452 pg/mL (232-1245) H 05/20/24 00:00 Procalcitonin 0.61 ng/mL (0-0.5) H 05/20/24 00:00 TSH 1.21 uIU/mL (0.27-4.20) 05/20/24 00:00 Urine Color Dark yellow (Yellow) A 05/20/24 04:17 Urine Appearance Cloudy (CLEAR) A 05/20/24 04:17 Urine pH 5.0 (5-7) 05/20/24 04:17 Ur Specific [place] 1.020 (1.005-1.030) 05/20/24 04:17 Urine Protein 2+ (Negative) A 05/20/24 04:17 Urine Glucose (UA) 2+ (Normal) H 05/20/24 04:17 Urine Ketones Trace (Negative) 05/20/24 04:17 Urine Blood 1+ (Negative) A 05/20/24 04:17 Urine Nitrate Negative (Negative) 05/20/24 04:17 Urine Bilirubin Negative (Negative) 05/20/24 04:17 Urine Urobilinogen 1.0 mg/dL (Negative) 05/20/24 04:17 Ur Leukocyte Esterase Negative (Negative) 05/20/24 04:17 Urine RBC 0-2 /hpf (0-2) 05/20/24 04:17 Urine WBC 0-5 /hpf (0-5) 05/20/24 04:17 Ur Squamous Epith Cells 11-20 /hpf (0-5) H 05/20/24 04:17 Amorphous Sediment Not Reportable 05/20/24 04:17 Urine Bacteria Trace /hpf (NONE) 05/20/24 04:17 Hyaline Casts 44.66 /lpf 05/20/24 04:17 Discharge Plan Discharge Patient Disposition: Admitted As Inpatient Admit Provider: Winston Valverde Clinical Impression: Acute pancreatitis, Acute kidney injury, Sepsis Condition: Stable Coding Level of Care Code ED Storyboard Artist for Bran Almaraz
[2024-05-20 03:03] LABS: Lactic Sepsis W/Reflex 5.9 mmol/L (0.5-2.2)
[2024-05-20 03:13] LABS: Lipase 2703 U/L (13-60)
[2024-05-20] MEDS: piperacillin-tazobactam 3.375 GM in sodium chloride 0.9% (plus) 50 ML IV ×2 (03:24→18:26)
[2024-05-20 04:24] LABS: Bilirubin Urine Negative (Negative); Blood Urine 1+ (Negative); Glucose Urine UA 2+ (Normal); Ketones Urine Trace (Negative); Leukocyte Esterase Urine Negative (Negative); Nitrate Urine Negative (Negative); Protein Urine 2+ (Negative); Urine Appearance Cloudy (CLEAR); Urine Color Dark Yellow (Yellow)
[2024-05-20 04:29] LABS: Add Urine Microscopic? YES; Bacteria Urine Trace /hpf; Hyaline Casts Urine 44.66 /lpf; RBC Urine 0-2 /hpf (0-2); Universal Test for UA Present (0); WBC Urine 0-5 /hpf (0-5)
[2024-05-20 04:35] LABS: Reflex Lactate Order REFLEX LACTIC ORDERD
--- NOTE | 2024-05-20 05:06 | USR_ITS ---
PROCEDURE INFORMATION: Exam: US Abdomen, Limited; Right Upper Quadrant Exam date and time: 05/20/2024 6:00 AM Age: 74 years old Clinical indication: Abdominal pain; Generalized; Additional info: Gallstones, pancreatitis, elevated liver enzymes, TECHNIQUE: Imaging protocol: Real time ultrasound of the abdomen with image documentation. Limited exam focused on the right upper quadrant. COMPARISON: CT kidney stone [id number] 05/20/2024 2:25 AM FINDINGS: Liver: Mildly echogenic, suggesting fatty infiltration. Gallbladder: Cholelithiasis and mild gallbladder wall thickening, likely reactive. Biliary ducts: Common bile duct dilatation to approximately 1 cm. No stones. Pancreas: Ill-defined and suboptimally visualized. Right kidney: Echogenic, suggesting medical renal disease. No mass. No definite stones. No hydronephrosis. Intraperitoneal space: Small upper abdominal ascites. US/US abdomen limited [id number] IMPRESSION: 1. Cholelithiasis and mild gallbladder wall thickening, likely reactive. 2. Common bile duct dilatation to approximately 1 cm. Correlate with LFTs and, if clinically indicated, ERCP or MRCP. 3. Small upper abdominal ascites. 4. Echogenic right kidney, suggesting medical renal disease. 5. Additional findings, as above.
--- NOTE | 2024-05-20 06:20 | MRR_ITS ---
PROCEDURE INFORMATION: Exam: MR Abdomen Without Contrast, Biliary System Exam date and time: 05/20/2024 8:01 AM Age: 74 years old Clinical indication: Abnormal findings; Abnormal lab test and abnormal radiologic finding of the abdomen; Radiologic exam and body structure: Ultrasound gallbladder; Abnormal function test of other organs/systems; Abdominal tenderness; Additional info: Pancreatitis, gallstones, elevated lfts and lipase TECHNIQUE: Imaging protocol: MR of the abdomen without contrast. Exam focused on the biliary system and pancreatic ducts. Routine 3D-MRCP images were acquired and processed without radiologist supervision. 505image(s) are provided. COMPARISON: 1. CT kidney stone [id number] 05/20/2024 2:[address] kidney stone [id number] 04/09/2022 11:11 PM 3. US abdomen limited [id number] 05/20/2024 6:00 AM. No previous MRCP is currently available. FINDINGS: Lungs: There appears to be some trace pleural fluid as well as some patchy atelectatic consolidation of the lung bases along with suspected granulomatous appearance. Liver: There appears to be slight heterogeneity of the hepatic parenchyma overall along with some subtle periportal tracking. This can be seen with processes including steatosis as well as hepatic disease related changes. Gallbladder and biliary ducts: The gallbladder appears patulous overall with some small stone and sludge appearance along with some fold averaging. There is borderline wall thickness of around 3.5 mm. There is some adjacent pericholecystic fluid. The common bile duct measures around 6.5 mm with no definite persistent filling defects currently appreciated. Distal, ampullary level evaluation is however somewhat limited. Pancreas: The pancreas appears overall inflamed with the edematous related signal as well as adjacent fluid signal. Parenchymal detail evaluation is otherwise limited on these noncontrast views. Spleen: There is some small splenule appearance. Adrenal glands: The adrenal glands appears similar overall. Kidneys: No interval hydronephrosis is appreciated. There appear to be some renal fluid intense related changes of the left albeit similar overall. Stomach and bowel: The bowel gas pattern appears nonobstructive.There is some ingested bowel content present. Intraperitoneal space: There is similar overall abdominal fluid present although appears to be increased in the interval including of the upper abdomen viscera. For example including thickness of the fluid adjacent to the hepatic margin is around 2 cm versus previous 1 cm. Some of the fluid, stranding abuts the adjacent bowel, viscera. Some processes including secondary inflammation could also present in this fashion. Vasculature: No interval abdominal aortic saccular aneurysmal dilatation is appreciated. Bones/joints: No diffuse acute abnormal marrow signal intensity is appreciated. Soft tissues: No significant interval subcutaneous fluid type collections are currently appreciated. Other findings: There is some motion artifact present. No other significant interval changes are appreciated. MR/MR MRCP [id number] IMPRESSION: 1. There is some progressive abdominal fluid, inflammatory appearance overall with the clinically provided history provided of pancreatitis. 2. The gallbladder is patulous with some associated wall thickening and layering sludge, small gallstones. Some superimposed early inflammation could also present in this fashion. 3. There is some central ductal dilatation although no persistent filling defects are currently appreciated. Distal, ampullary level evaluation is however somewhat limited. Overall, consider pancreatic and hepatobiliary laboratory profile studies to evaluate for interval progression. If there is persistent clinical concern for partial obstructive or clinical jaundice type changes then consider direct visualization with ERCP when clinically feasible.
--- NOTE | 2024-05-20 07:22 | PC.PHAR ---
Pt missed taking medications yesterday and has taken nothing today 05/20/24.
--- NOTE | 2024-05-20 11:05 | PC.NURSE ---
pt report and cares taken from Willa MATA at this time.
[2024-05-20] MEDS: sodium chloride 0.9% 1,000 ML 125 ML IV ×2 (11:39→18:26)
--- NOTE | 2024-05-20 11:49 | P.CONIM_ITS ---
Providers/Reason For Consult 2 Consulting Physician/Specialty*: General Surgery Reason for Consult*: Possible biliary pancreatitis Primary Care Provider: Aby Herndon NP History of Present Illness History of Present Illness Traecy Dolan is a 74 year old female Who presents to the hospital with abdominal pain and is found to have acute pancreatitis. I was consulted for evaluation for possible biliary pancreatitis. Patient denies alcohol intake. According to her last bowel movement was about 2 days ago, over the last 24 hours she was having abdominal pain nausea and vomit. Denies yellowing of the skin or eyes. No previous history of gallbladder disease. Last triglyceride level was normal. Review of Systems 2 General: Reports: 10 or more systems reviewed and unremarkable except in HPI and below Medications/Allergies Home Medications ?Medication ?Instructions ?Recorded ?Confirmed ?Last Taken ?Type aspirin 81 mg tablet,delayed 81 mg PO DAILY 03/23/22 0 05/20/24 05/18/24 History release (Adult Low Dose Aspirin) mecobalamin (vitamin B12) 1,000 1,000 mcg sublingual D AILY 04/02/23 05/20/24 05/18/24 History mcg disintegrating tablet,sublingual lisinopril 20 mg tablet 20 mg PO DAILY #90 tabs 11/1305/20/24 05/18/24 Rx krill oil 500 mg capsule 500 mg PO DAILY 03/31/2411/0605/18/24 History multivitamin 1 tab PO DAILY 03/31/24 0311/0605/18/24 History Allergies Allergy/AdvReac Type Severity Reaction Status Date / Time No Known Allergies Allergy Verified 05/19/24 23:10 Current Medications Generic Name Dose Route Start Last Admin Trade Name Freq PRN Reason Stop Dose Admin Sodium Chloride 1,000 mls @ 125 mls/hr 05/20/24 10:15 05/20/24 11:39 Sodium Chloride 0.9% IV 125 mls/hr .Q8H HERB Administration PFSH Acute 2 PFSH: Medical History Hypertension Hyperlipidemia Family History Denies family history of Diabetes CAD (coronary artery disease) Cancer Social History Smoking and tobacco/nicotine status: never used tobacco/nicotine Alcohol intake: current Alcohol intake frequency: holidays/special occasions only Vitals/I&O/Wt Last Vital Signs Temp 97.4 F L 05/19/24 23:03 Pulse 102 H 05/20/24 11:30 Resp 26 H 05/20/24 05:30 BP 138/74 05/20/24 11:30 Pulse Ox 95 05/20/24 11:30 O2 Del Method Room Air 05/20/24 11:30 05/19/24 05/20/24 05/20/24 22:59 06:59 14:59 Intake Total 1000 / 1000 Balance 1000 / 1000 Weight last 48 hrs Weight 140 lb Physical Exam 2 GI: OTHER: Abdominal examination is overall benign, abdomen is mildly distended, there is diffuse tenderness but more marked in the upper abdomen consistent with findings. No peritonitis. Data 05/19/24 23:47 05/19/24 23:47 A&P Assessment and plan (1) Acute pancreatitis: Plan After complete history, physical examination and review of all available clinical data the following is my assessment. I agree that the patient current episode of pancreatitis may be related to biliary disease as there is some biliary ductal dilation as well as cholelithiasis on imaging. There is no evidence of current choledocholithiasis on imaging or by laboratory markers, which indicates that likely if there was a stone that has already passed through the duct. Imaging is consistent with severe pancreatitis there is severe peripancreatic edema as well as free intra-abdominal inflammatory fluid as well as fluid within the perihepatic spaces. She is mildly tachycardic and laboratory workup shows elevated white count as well as elevated lactate. I recommend aggressive medical management and close follow-up of laboratory and inflammatory markers. Recommend patient to remain n.p.o. and with a slow advancement of diet. I recommend that she is started on broad-spectrum antibiotic due to the severity of the pancreatitis. In case of worsening of her pancreatitis or worsening of biliary function test she might require endoscopic evaluation for possible ERCP and stent placement. I would not recommend that we proceed with laparoscopic cholecystectomy during this hospital admission due to the severity of intra-abdominal inflammation including free intra-abdominal inflammatory fluid and marked inflammation of the omentum surrounding the duodenum. I do recommend that we proceed with laparoscopic cholecystectomy once the acute pancreatitis has resolved and this can be done as outpatient. General surgery will remain available as needed. PDMP PDMP Reviewed: Not Reviewed Coding Level of Care Code Acute Code for Chg Fwd Diagnoses Acute pancreatitis K85.90
--- OUTSIDE RECORDS SUMMARY | 2024-05-20 12:02 | XMS_ITS | Data Portability ---
Author Organization [facility], Physiatry Address 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 pt aware of healthy nutrition, including a diet rich in fruits and vegetables, minimizing simple carbohydrates, salt, and saturated fats. Encouraged regular cardiovascular exercise such as walking at least 30 minutes daily, 5 times per week. Emphasized preventive health measures and educated pt on fall prevention and community-based lifestyle interventions to help reduce health risks and promote healthy living. Not available 12/29/2020 19:52:59 07/22/2021 07/22/2021 Patient presente d to office today for their Medicare Annual Wellness Visit. Education was provided on healthy nutrition, including a diet rich in fruits and vegetables, minimizing simple carbohydrates, salt, and saturated fats. Encouraged regular cardiovascular exercise such as walking at least 30 minutes daily, 5 times per week. Emphasized preventive health measures and educated pt on fall prevention and community-based lifestyle interventions to help reduce health risks and promote healthy living. Not available 07/22/2021 13:15:12 Plan of Treatment Reminders Order Date Submit Date Provider Last Modified By Organization Details Last Modified Time Details Appointments None recorded. Lab lipid panel, serum 2021 022 PRAVEEN [facility], [address], [address], [place], [address], 2 05:08:57 TSH, ultra-sens itive, serum 2021 022 PR[facility]EN [facility], [address], [address], [place], [address], 2 05:08:57 CMP, serum or plasma 2021 022 PRAVEEN [facility], [address], [address], [place], [address], 2 05:08:56 CMP, serum or plasma 2019 020 PRAVEEN [facility], [address], [address], [place], [address], 0 12:40:32 lipid panel, serum 2019 020 PRAVEEN [facility], [address], [address], [place], [address], 0 12:40:32 TSH + free T4, serum 2019 020 PRAVEEN [facility], [address], [address], [place], [address], 0 12:40:32 Referral None recorded. Procedures None recorded. Surgeries None recorded. Imaging bone density 2021 022 [email or web address] Not available 3 16:46:01 Medication Orders pravastati n 40 mg tablet 2019 020 INTERFACE [facility], [address], [place], [address], 0 12:20:22 Patient TargetsNo targets recorded. Patient Instructions Encounter Date Encounter Id Patient Instructions Last Modified By Organization Details Last Modified Time 12/26/2020 [id number] advance care planning: care instructions Not available 12/26/2020 13:17:35 Discussed and explained advance directives such as standard forms to the {{patient caregiv er patient and caregiver}}. Face to face discussion lasted for a duration of ___ minutes. Not available 12/26/2020 12:23:12 07/22/2021 [id number] advance care planning: care instructions Not available 07/22/2021 12:53:55 Discussed and explained advance directives such as standard forms to the {{patient caregiv er patient and caregiver}}. Face to face discussion lasted for a duration of ___ minutes. [email or web address] Not available 07/22/2021 12:35:39 Reason for Referral None Reported. Results Created Date Observation Date Name Description Value Unit Range Abnormal Flag Note LastModifiedBy Organization Detail LastModifiedTime 11/13/1911/14/2019 TSH + free T4, serum TSH 2.640 uIU/m L 0.450- 4.500 Not Available [facility] ([facility]) [address] [place], [address], 11/14/2019 09:15:55 11/13/1911/14/2019 TSH + free T4, serum T4,free(dire ct) 1.24 NG/dL 0.82-1 .77 Not Available [facility] ([facility]) [address] [place], [address], 11/14/2019 09:15:55 11/13/1911/14/2019 CMP, serum or plasm a glucose 96 mg/dL 65-99 Not Available [facility] ([facility]) [address] [place], [address], 11/14/2019 09:15:56 11/13/1911/14/2019 CMP, serum or plasm a BUN 27 mg/dL 8-27 Not Available [facility] ([facility]) [address] [place], [address], 11/14/2019 09:15:56 11/13/1911/14/2019 CMP, serum or plasm a creatinine 0.83 mg/dL 0.57-1 .00 Not Available [facility] ([facility]) [address] [place], [address], 11/14/2019 09:15:56 11/13/19 20 11/14/2019 CMP, serum or plasm a eGFR if nonafricn AM 71 mL/mi n/1.7 3 >59 Not Available [facility] ([facility]) [address] [facility] [place], [address], 11/14/2019 09:15:56 11/13/19 20 11/14/2019 CMP, serum or plasm a eGFR if africn AM 82 mL/mi n/1.7 3 >59 Not Available [facility] ([facility]) [address] [facility] [place], [address], 11/14/2019 09:15:56 11/13/1911/14/2019 CMP, serum or plasm a BUN/creatini ne ratio 33 12-28 above high normal Not Available [facility] ([facility]) [address] [facility] [place], [address], 11/14/2019 09:15:56 11/13/1911/14/2019 CMP, serum or plasm a sodium 141 mmol/ L 134-14 4 Not Available [facility] ([facility]) [address] [facility] [place], [address], 11/14/2019 09:15:56 11/13/1911/14/2019 CMP, serum or plasm a potassium 4.4 mmol/ L 3.5-5. 2 Not Available [facility] ([facility]) [address] [facility] [place], [address], 11/14/2019 09:15:56 11/13/1911/14/2019 CMP, serum or plasm a chloride 104 mmol/ L 96-106 Not Available [facility] ([facility]) [address] [facility] [place], [address], 11/14/2019 09:15:56 11/13/1911/14/2019 CMP, serum or plasm a carbon dioxide, total 24 mmol/ L Not Available [facility] ([facility] [address] [facility] [place], [address], 11/14/2019 09:15:56 11/13/1911/14/2019 CMP, serum or plasm a calcium 9.8 mg/dL 8.7-10 .3 Not Available [facility] ([facility]) [address] [place], [address], 11/14/2019 09:15:56 11/13/1911/14/2019 CMP, serum or plasm a protein, total 7.3 g/dL 6.0-8. 5 Not Available [facility] ([facility] [address] [facility] [place], [address], 11/14/2019 09:15:56 11/13/1911/14/2019 CMP, serum or plasm a albumin 4.7 g/dL 3.7-4. 7 Not Available [facility] ([facility]) [address] [facility] [place], [address], 11/14/2019 09:15:56 11/13/1911/14/2019 CMP, serum or plasm a globulin, total 2.6 g/dL 1.5-4. 5 Not Available [facility] ([facility]) [address] [facility] [place], [address], 11/14/2019 09:15:56 11/13/1911/14/2019 CMP, serum or plasm a A/G ratio 1.8 1.2-2. 2 Not Available [facility] ([facility]) [address] [facility] [place], [address], 11/14/2019 09:15:56 11/13/1911/14/2019 CMP, serum or plasm a bilirubin, total 0.6 mg/dL 0.0-1. 2 Not Available [facility] ([facility]) [address] [facility] [place], [address], 11/14/2019 09:15:56 11/13/19 20 11/14/2019 CMP, serum or plasm a alkaline phosphatase 116 IU/L 39-117 Not Available [facility] ([facility]) [address] [facility] [place], [address], 11/14/2019 09:15:56 11/13/19 20 11/14/2019 CMP, serum or plasm a AST (SGOT) 28 IU/L 0-40 Not Available [facility] ([facility]) [address] [facility] [place], [address], 11/14/2019 09:15:56 11/13/1911/14/2019 CMP, serum or plasm a ALT (SGPT) 21 IU/L 0-32 Not Available [facility] ([facility]) [address] [place], [address], 11/14/2019 09:15:56 11/13/19 20 11/14/2019 lipid panel , serum cholesterol, total 347 mg/dL 100-19 9 above high normal Not Available [facility] ([facility]) [address] [place], [address], 11/14/2019 09:15:56 11/13/1911/14/2019 lipid panel , serum triglyceride s 158 mg/dL 0-149 above high normal Not Available [facility] ([facility]) [address] [place], [address], 11/14/2019 09:15:56 11/13/1911/14/2019 lipid panel , serum HDL cholesterol 68 mg/dL >39 Not Available [facility] ([facility]) [address] [place], [address], 11/14/2019 09:15:56 11/13/1911/14/2019 lipid panel , serum VLDL cholesterol gayle 30 mg/dL 5-40 Not Available [facility] ([facility]) [address] [place], [address], 11/14/2019 09:15:56 11/13/19 20 11/14/2019 lipid panel , serum LDL chol calc ([facility]) 249 mg/dL 0-99 above high normal Not Available [facility] ([facility]) [address] [facility], [place], [address], 11/14/2019 09:15:56 11/13/19 20 11/14/2019 lipid panel , serum comment: TNP Test not perfo rmed Not Available [facility] ([facility]) [address] [facility], [place], [address], 11/14/2019 09:15:56 11/13/1911/14/2019 lipid panel , serum LDL/HDL ratio 3.7 ratio 0.0-3. 2 above high normal LDL/H DL Ratio Men Women 1/2 Avg.R isk 1.0 1.5 Avg.R isk 3.6 3.2 2X Avg.R isk 6.2 5.0 3X Avg.R isk 8.0 6.1 Not Available [facility] ([facility]) [address] [facility], [place], [address], 11/14/2019 09:15:56 02/21/20 20 02/21/2020 lipid panel , serum cholesterol, total 264 mg/dL <200 above high normal ADULT FRANCO STERO L RANGE S: <200 LLUVIA ABLE 200-2 39 BORDE RLINE >239 HIGH Not Available [facility] ([facility]) [address] [place], [address], 02/21/2020 19:07:19 02/21/20 20 02/21/2020 lipid panel , serum triglyceride s 85 mg/dL <[address] [facility] ([facility]) [address] [place] [address], [address], 02/21/2020 19:07:19 02/21/20 20 02/21/2020 lipid panel , serum HDL cholesterol 74 mg/dL >60 Not Available [facility] ([facility]) [address], [place], [address], 02/21/2020 19:07:19 02/21/20 20 02/21/2020 lipid panel , serum VLDL cholesterol gayle 17 mg/dL <[address] 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 Not Available [facility] ([facility]) [address], [place], [address], 02/21/2020 19:07:19 12/19/19 21 12/18/2020 CMP14 +EGFR glucose 88 mg/dL 65-110 Not Available [facility] ([facility]) [address], [place], [address], 12/19/2020 04:08:49 12/19/19 21 12/18/2020 CMP14 +EGFR BUN 20 mg/dL 7-20 Not Available [facility] ([facility]) [address], [place], [address], 12/19/2020 04:08:49 12/19/19 21 12/18/2020 CMP14 +EGFR creatinine 1.01 mg/dL 0.55-1 .03 Not Available [facility] ([facility]) [address], [address], 12/19/2020 04:08:49 12/19/19 21 12/18/2020 CMP14 +EGFR eGFR if nonafricn AM 54 mL/mi n/M >60 below low normal eGFR Inter preta tion: => 60 Refer ence range , but canno t exclu de kidne y damag e with criss l or mild decre ase in GFR (i.e. Stage 1 or 2 of chron ic kidne y disea se 30-59 Moder ate decre ase in GFR / Stage 3 of CKD 15-29 Sever e decre ase in GFR / Stage 4 of CKD <15 Kidne y failu re / Stage 5 of CKD EGFR is calcu lated using the MDRD equat ion and has not been valid ated for certa in patie nt group s, inclu ding the elder ly, pregn ant women , and indiv idual s with excep melodie l dieta ry intak e or muscl e mass. Witho jenna chan ction , the equat ion under estim ates the GFR in [place] cans by appro skylarmasheryl millery 18%. Refer ence: N Engl J Med. 2006 354:2 473-8 3. Not Available [facility] ([facility]) [address], [place], [address], 12/19/2020 04:08:49 12/19/19 21 12/18/2020 CMP14 +EGFR eGFR if africn AM 65 mL/mi n/M eGFR Inter preta tion: => 60 Refer ence range , but canno t exclu de kidne y damag e with criss l or mild decre ase in GFR (i.e. Stage 1 or 2 of chron ic kidne y disea se 30-59 Moder ate decre ase in GFR / Stage 3 of CKD 15-29 Sever e decre ase in GFR / Stage 4 of CKD <15 Kidne y failu re / Stage 5 of CKD EGFR is calcu lated using the MDRD equat ion and has not been valid ated for certa in patie nt group s, inclu ding the elder ly, pregn ant women , and indiv idual s with excep melodie l dieta ry intak e or muscl e mass. Witho ut corre ction , the equat ion under estim ates the GFR in [place] cans by appro quan garcia 18%. Refer ence: N Engl J Med. 2006 354:2 473-8 3. Not Available [facility] ([facility]) [address], [place], [address], 12/19/2020 04:08:49 12/19/19 21 12/18/2020 CMP14 +EGFR BUN/creatini ne ratio 19.[address] [facility] ([facility]) [address], [place], [address], 12/19/2020 04:08:49 12/19/19 21 12/18/2020 CMP14 +EGFR sodium 140 mmol/ L 134-14 5 Not Available [facility] ([facility]) [address], [place], [address], 12/19/2020 04:08:49 12/19/19 21 12/18/2020 CMP14 +EGFR potassium 4.4 mmol/ L 3.5-5. 1 Not Available [facility] ([facility]) [address], [place], [address], 12/19/2020 04:08:49 12/19/19 21 12/18/2020 CMP14 +EGFR chloride 107 mmol/ L 98-107 Not Available [facility] ([facility]) [address], [place], [address], 12/19/2020 04:08:49 12/19/19 21 12/18/2020 CMP14 +EGFR carbon dioxide, total 27.0 mmol/ L 22-31 Not Available [facility] ([facility]) [address], [place], [address], 12/19/2020 04:08:49 12/19/19 21 12/18/2020 CMP14 +EGFR calcium 10.0 mg/dL 8.3-10 .6 Not Available [facility] ([facility]) [address], [place], [address], 12/19/2020 04:08:49 12/19/19 21 12/18/2020 CMP14 +EGFR protein, total 6.7 g/dL 5.7-8. 2 Not Available [facility] ([facility]) [address], [place], [address], 12/19/2020 04:08:49 12/19/19 21 12/18/2020 CMP14 +EGFR albumin 4.4 g/dL 3.5-5. 0 Not Available [facility] ([facility]) [address], [place], [address], 12/19/2020 04:08:49 12/19/19 21 12/18/2020 CMP14 +EGFR globulin, total 2.3 g/dL 2.2-3. 6 Not Available [facility] ([facility]) [address], [place], [address], 12/19/2020 04:08:49 12/19/19 21 12/18/2020 CMP14 +EGFR A/G ratio 1.9 0.9-1. 7 above high normal Not Available [facility] ([facility]) [address], [place], [address], 12/19/2020 04:08:49 12/19/19 21 12/18/2020 CMP14 +EGFR bilirubin, total 0.8 mg/dL 0.3-1. 2 Not Available [facility] ([facility]) [address], [place], [address], 12/19/2020 04:08:49 12/19/1912/18/2020 CMP14 +EGFR alkaline phosphatase 104 U/L 46-116 Not Available [facility] ([facility]) [address], [place], [address], 12/19/2020 04:08:49 12/19/19 21 12/18/2020 CMP14 +EGFR AST (SGOT) 27 U/L <34 Not Available [facility] ([facility]) [address] [place] [address], [address], 12/19/2020 04:08:49 12/19/19 21 12/18/2020 CMP14 +EGFR ALT (SGPT) 20 U/L 10-49 Not Available [facility] ([facility]) [address], [address], 12/19/2020 04:08:49 12/19/19 21 12/18/2020 LIPID PANEL cholesterol, total 239 mg/dL <200 above high normal ADULT FRANCO STERO L RANGE S: <200 LLUVIA ABLE 200-2 39 BORDE RLINE >239 HIGH Not Available [facility] ([facility]) [address], [address], 12/19/2020 04:08:50 12/19/19 21 12/18/2020 LIPID PANEL triglyceride s 87 mg/dL <[address] [facility] ([facility]) [address] [place] [address], [address], 12/19/2020 04:08:50 12/19/19 21 12/18/2020 LIPID PANEL HDL cholesterol 74 mg/dL >60 Not Available [facility] ([facility]) [address] [place] [address], [address], 12/19/2020 04:08:50 12/19/19 21 12/18/2020 LIPID PANEL VLDL cholesterol gayle 17 mg/dL <[address] 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 The Endoc rine Socie ty went on to [facility], 1928–1983 er defin e vitam in D insuf ficie ncy as a level betwe en 21 and 29 ng/mL (2). 1. IOM (Inst itute of Medic ine). 2010. Dieta ry refer ence intak es for calci um and D. Pam santos [place]: The Natio nal [facility] . 2. Cynthia hayden MF, Nany lima [place], Mickey off-F errar i SANZ, et al. Evalu ation , treat ment, and preve ntion of vitam in D defic iency : an Endoc rine Socie ty clini gayle pract ice guide line. JCEM. 2010; 96(7) :1911 -30. Not Available [facility] ([facility]) [address], [place], [address], 12/19/2020 04:08:51 07/23/19 22 07/23/2021 COMP. METAB OLIC PANEL (14) glucose 88 mg/dL 65-99 Not Available [facility] ([facility]) [address] [place], [address], 07/23/2021 05:08:56 07/23/19 22 07/23/2021 COMP. METAB OLIC PANEL (14) BUN 21 mg/dL 8-27 Not Available [facility] ([facility]) [address] [place], [address], 07/23/2021 05:08:56 07/23/19 22 07/23/2021 COMP. METAB OLIC PANEL (14) creatinine 1.04 mg/dL 0.57-1 .00 above high normal Not Available [facility] ([facility]) [address] [place], [address], 07/23/2021 05:08:56 07/23/19 22 07/23/2021 COMP. METAB OLIC PANEL (14) eGFR 57 mL/mi n/1.7 3 >59 below low normal Not Available [facility] ([facility]) [address] [place], [address], 07/23/2021 05:08:56 07/23/19 22 07/23/2021 COMP. METAB OLIC PANEL (14) BUN/creatini ne ratio 20 12-28 Not Available [facility] ([facility]) [address] [place], [address], 07/23/2021 05:08:56 07/23/19 22 07/23/2021 COMP. METAB OLIC PANEL (14) sodium 143 mmol/ L 134-14 4 Not Available [facility] ([facility]) [address] [place], [address], 07/23/2021 05:08:56 07/23/19 22 07/23/2021 COMP. METAB OLIC PANEL (14) potassium 4.3 mmol/ L 3.5-5. 2 Not Available [facility] ([facility]) [address] [place], [address], 07/23/2021 05:08:56 07/23/19 22 07/23/2021 COMP. METAB OLIC PANEL (14) chloride 105 mmol/ L 96-106 Not Available [facility] ([facility]) [address] [place], [address], 07/23/2021 05:08:56 07/23/19 22 07/23/2021 COMP. METAB OLIC PANEL (14) carbon dioxide, total 21 mmol/ L 20-29 Not Available [facility] ([facility]) [address] [facility] [place], [address], 07/23/2021 05:08:56 07/23/19 22 07/23/2021 COMP. METAB OLIC PANEL (14) calcium 9.6 mg/dL 8.7-10 .3 Not Available [facility] ([facility]) [address] [place], [address], 07/23/2021 05:08:56 07/23/19 22 07/23/2021 COMP. METAB OLIC PANEL (14) protein, total 6.9 g/dL 6.0-8. 5 Not Available [facility] ([facility]) [address] [place], [address], 07/23/2021 05:08:56 07/23/19 22 07/23/2021 COMP. METAB OLIC PANEL (14) albumin 4.7 g/dL 3.7-4. 7 Not Available [facility] ([facility]) [address] [place], [address], 07/23/2021 05:08:56 07/23/19 22 07/23/2021 COMP. METAB OLIC PANEL (14) globulin, total 2.2 g/dL 1.5-4. 5 Not Available [facility] ([facility]) [address] [facility] [place], [address], 07/23/2021 05:08:56 07/23/19 22 07/23/2021 COMP. METAB OLIC PANEL (14) A/G ratio 2.1 1.2-2. 2 Not Available [facility] ([facility]) [address] [facility] [place], [address], 07/23/2021 05:08:56 07/23/19 22 07/23/2021 COMP. METAB OLIC PANEL (14) bilirubin, total 0.7 mg/dL 0.0-1. 2 Not Available [facility] ([facility]) [address] [place], [address], 07/23/2021 05:08:56 07/23/19 22 07/23/2021 COMP. METAB OLIC PANEL (14) alkaline phosphatase 103 IU/L 44-121 Not Available [facility] ([facility]) [address] [place], [address], 07/23/2021 05:08:56 07/23/19 22 07/23/2021 COMP. METAB OLIC PANEL (14) AST (SGOT) 33 IU/L 0-40 Not Available [facility] ([facility]) [address] [place], [address], 07/23/2021 05:08:56 07/23/19 22 07/23/2021 COMP. METAB OLIC PANEL (14) ALT (SGPT) 26 IU/L 0-32 Not Available [facility] ([facility]) [address] [place], [address], 07/23/2021 05:08:56 07/23/19 22 07/23/2021 LIPID PANEL cholesterol, total 208 mg/dL 100-19 9 above high normal Not Available [facility] ([facility]) [address] [place], [address], 07/23/2021 05:08:57 07/23/19 22 07/23/2021 LIPID PANEL triglyceride s 82 mg/dL 0-149 Not Available [facility] ([facility]) [address] [facility] [place], [address], 07/23/2021 05:08:57 07/23/19 22 07/23/2021 LIPID PANEL HDL cholesterol 82 mg/dL >39 Not Available [facility] ([facility]) [address] [facility] [place], [address], 07/23/2021 05:08:57 07/23/19 22 07/23/2021 LIPID PANEL VLDL cholesterol gayle 14 mg/dL 5-40 Not Available [facility] ([facility]) [address] [place], [address], 07/23/2021 05:08:57 07/23/19 22 07/23/2021 LIPID PANEL LDL chol calc ([facility]) 112 mg/dL 0-99 above high normal Not Available [facility] ([facility]) [address] [facility] [place], [address], 07/23/2021 05:08:57 07/23/19 22 07/23/2021 LIPID 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 Problems Name Problem SNOMED Code Status Onset Date Resolution Date Notes Provider Name and Address Organization Details Recorded Time Hyperlip idemia 66316101 Completed 201112/16/2020 E78.5:HY PERLIPID EMIA Opal Gokimmie, DO [address], [place], [id number] , [facility] 1 14:18:31 Bone density finding 033048670 Active 2011 M85.80:O RICHELLE Peoples Not Available [facility] 0 15:48:[address] Concept Completed 201611/13/2019 Z00.00:R outine medical examinat brea Gokimmie, DO [address], [place], [address] , [facility] 0 12:07:23 Adenomat ous polyp of colon 659991431 Active 2016 D12.6:Tu bular adenoma of colon Not Available [facility] 0 15:48:52 Chronic kidney disease stage 1 593697865 Active 2018 N18.1:Ki dney disease, chronic, stage I Not Available [facility] 0 15:48:[address] Concept Completed 201811/13/2019 Z01.00:E ye exam [facility] [address] , [facility] 0 12:07:26 Pure hypercho lesterol emia 775416320 Active 2020 [facility] [address] , [facility] 1 14:18:40 Adult health examinat brea Active 2020 Opal Batista DO [address], [address] , [facility] 1 13:17:09 Problem Notes None recorded. Medical Equipment None Reported. Medications Name Sig Start Date Stop Date Status Note LastModified by Organization Details LastModified Time pravastatin 40 mg tablet Take 1 tablet every day by oral route as directe d. active Not Available Not Available No t Available azelastine 137 mcg (0.1 %) nasal spray 12/26 completed Not Available Not Available Not Available fluticasone propionate 50 mcg/actuation nasal spray,suspens ion 12/26 completed Not Available Not Available Not Available rosuvastatin 10 mg tablet 11/12 completed Not Available Not Available Not Available Vitals Date Recorded Body weight Body mass index (BMI) Body height Body temperature Oxygen saturation Oxygen saturation in Arterial blood by Pulse oximetry Heart rate Systolic blood pressure Diastolic blood pressure Provider Name and Address Organization Details Last Updated DateTime 1 39907.7 5 g 23.7 kg/m2 162.56 cm 99 [degF] 97 % 97 % 90 /min 155 mm[Hg] 100 mm[Hg] ANGY JAIM[facility] 1 12:21:17 Date Recorded Body height Body mass index (BMI) Body weight Body temperature Oxygen saturation Oxygen saturation in Arterial blood by Pulse oximetry Heart rate Systolic blood pressure Diastolic blood pressure Provider Name and Address Organization Details Last Updated DateTime 2 162.56 cm 23.7 kg/m2 73265.8 g 98.5 [degF] 95 % 95 % 72 /min 138 mm[Hg] 96 mm[Hg] Lazara Peck [facility] 2 12:34:51 Date Recorded Body weight Body mass index (BMI) Body height Oxygen saturation Oxygen saturation in Arterial blood by Pulse oximetry Heart rate Body temperature Systolic blood pressure Diastolic blood pressure Provider Name and Address Organization Details Last Updated DateTime 0 18176.7 1 g 22.8 kg/m2 162.56 cm 96 % 96 % 67 /min 97.3 [degF] 122 mm[Hg] 80 mm[Hg] Erick [facility] 0 11:55:32 Social History Question Answer Notes LastModified by Organizat ion Details LastModified Time Tobacco Smoking Status [facility] 11:56:10 Do You Have An Advance Directive? Yes Information not available 12/26/2020 What Is Your Level Of Alcohol Consumption? Occasional Information not available 12/26/2020 What Is Your Level Of Caffeine Consumption? None Information not available 12/26/2020 What Is Your Relationship Status? Information not available 12/26/2020 What Types Of Sporting Activities Do You Participate In? Pt Is Active, Walks, And Gardens Information not available 12/26/2020 Do You Use Any Illicit Or Recreational Drugs? No Information not available 12/26/2020 Sex: Female Functional Status Question Answer Note LastModified by Organization D etails LastModified Time What is your exercise level? Moderate Information not available 12/26/2020 Mental Status None recorded. Family History Relationship Description Onset Age of this Age Resolved Age Notes LastModified by Organization Details LastModified Time Brother Family history of Hypercholest erolemia [email or web address] Not available 09/06 05:10:16 Brother Family history of Hypercholest erolemia [email or web address] Not available 2019 13:55:49 Medical History No medical history recorded. Gynecological HistoryNo gynecological history recorded. Obstetrics History GPAL:G 0 P 0 0 0 0 Past Encounters Encounter ID Performer Location Encounter Start Date Encounter Closed Date Diagnosis/Indication Diagnosis SNOMED-CT Code Diagnosis ICD10 Code Diagnosis Note [id number] Opal Batista [address] [address] 11/13/2019 11:31:37 11/22/2019 16:17:59 Adult health examination 890405108 Z00.00 Active or passive immunization 245796883 Z23 refuses immunizati ons and mammograms and colonoscop ies Chronic ki dney disease stage 1 544671616 N18.1 Hyperlipidemia 97838411 E78.5 [id number] Opal Batista [address] [address] 12/26/2020 11:42:14 01/03/2021 07:30:47 Adult health examination 456179309 Z00.00 declines her mammo vaccines and is on a schedule for colonoscop ies Screening mammography 24 935100 Z12.31 pt declines [id number] Opal Batista [address] [address] 07/22/2021 12:29:12 07/31/2021 12:59:49 Adult health examination 128869276 Z00.00 declines her mammo vaccines and is on a schedule for colonoscop ies Screening for malignant neoplasm of colon 641656753 Z12.11 pt due doesnt' want to do it Screening for osteoporosis 154248489 Z13.820 Screening mammography 24 760945 Z12.31 pt declines Pure hypercholesterolemia 184751441 E78.00 Health Concerns Section Related Observation LastModified by Organization Detai ls LastModified Time None Recorded Concern Status LastModified by Organization Details LastModified Time None Recorded Advance Directives Directive Y: Payers Encounter Date Sequence Insurance Name Policy Number Policy Avina Covered Member ID Avina Member ID Guarantor Name 11/13/2019 1 [employer] (MEDICARE REPLACEMENT HMO) Tracey S Magdaleno [id number] Tracey Dolan 12/26/2020 1 [employer] (MEDICARE REPLACEMENT HMO) Tracey S Magdaleno [id number] Tracey Dolan 07/22/2021 1 [employer] - [employer] (MEDICARE REPLACEMENT HMO) Tracey Urias Magdaleno [id number] Tracey Dolan Notes Date Note Type Note Provider Name and Address Organization Details Recorded Time 11/13/2019 text/html Annual WellnessReported bypatient.Diet and Nutrition:healthy diet Fracture Risk:no history of fractures; no recent explained fracture; no sudden unexplained fractures; no previous musculoskeletal injuries Physical Activity:exercises on a regular basis; recent increase in physical activity; good physical condition Additional Lifestyle Factors:no tobacco use; no alcohol intake; stopped drinking alcohol Depression Risk:never feels sad, empty, or tearful; no loss of interest in activities; no significant changes in weight; no sleep disturbances or insomnia; no agitation; no loss of energy; no feelings of worthlessness or guilt; no thoughts of suicide; no history of depression; no history of mood disorders Hearing:no loss of hearing Vision:no vision problems Opal Batista DO [address] [place], [address], [facility] 11/13/2019 12:28:38 12/26/2020 text/html Medicare Annual Wellness VisitReported bypatient.Diet and Nutrition:healthy diet Fracture Risk:no history of fractures; no recent explained fracture; no sudden unexplained fractures; no previous musculoskeletal injuries Physical Activity:exercises on a regular basis; recent increase in physical activity; good physical condition Depression Risk:never feels sad, empty, or tearful; no loss of interest in activities; no significant changes in weight; no sleep disturbances or insomnia; no agitation; no loss of energy; no feelings of worthlessness or guilt; no thoughts of suicide; no history of depression; no history of mood disorders Orientation:no disorientation to time; no disorientation to date; no disorientation to place Concentration and Memory:no decreased concentrating ability; no memory lapses or loss; does not forget words Speech/Motor difficulties:no speech difficulties; no difficulty expressing formulated concepts; no difficulty with fine manipulative tasks; no difficulty writing/copying; no slowed reaction time; does not knock things over when trying to pick them up Hearing:no loss of hearing Vision:no vision problems Activities of Daily Living:able to bathe with limited or no assistance; able to contol urination and bowels; able to dress with limited or no assistance; able to feed self with limited or no assistance; able to get out of chair or bed with limited or no assistance; able to groom with limited or no assistance; able to toilet with limited or no assistance Instrumental Activities of Daily Living:able to do house work with limited or no assistance; able to grocery shop with limited or no assistance; able to manage medications with limited or no assistance; able to manage money with limited or no assistance; able to prepare meals with limited or no assistance; able to use the phone with limited or no assistance Falls Risk Assessment:no frequent falls while walking; no fall in the past year; no fall since last visit; no dizziness/vertigo Home Safety:no unsafe bekah hazzards; no unsafe stairs; no unsafe gas appliances; working smoke/CO detectors; wears protective head gear for biking/high velocity; use of seatbelts; practicing 'safer sex'; no vision or hearing loss while driving; no fire arms; has hand bars in the bathroom/shower; good lighting in the home reviewed labs her LDL is 142 HDL 74 51 yr her hs-usb has heart disease is healthy now no falls for pt moodis aleksandr Naya and had menigioma was supposed to do MRI 9 yrs ago after right ear scar tissue but wanted her to get an MRI had fluid behind both ears and Naya said he wanted her to see neurologist but needs to have MRI first and had it done and had meningioma and she saw neurologist and it isn't affecting her ear had some light headedness saw eye doc i have no notes in chart on any of thatlast c scope 2 yrs ago wanted to see her again in 5 yr 3 more Opal Batista DO [address], [place], [address], [place] [facility] 12/29/2020 19:53:18 07/22/2021 text/html Medicare Annual Wellness VisitReported bypatient.Diet and Nutrition:healthy diet Fracture Risk:no history of fractures; no recent explained fracture; no sudden unexplained fractures; no previous musculoskeletal injuries Physical Activity:exercises on a regular basis; recent increase in physical activity; good physical condition Depression Risk:never feels sad, empty, or tearful; no loss of interest in activities; no significant changes in weight; no sleep disturbances or insomnia; no agitation; no loss of energy; no feelings of worthlessness or guilt; no thoughts of suicide; no history of depression; no history of mood disorders Orientation:no disorientation to time; no disorientation to date; no disorientation to place Concentration and Memory:no decreased concentrating ability; no memory lapses or loss; does not forget words Speech/Motor difficulties:no speech difficulties; no difficulty expressing formulated concepts; no difficulty with fine manipulative tasks; no difficulty writing/copying; no slowed reaction time; does not knock things over when trying to pick them up Hearing:wears hearing aids Vision:no vision problems Activities of Daily Living:able to bathe with limited or no assistance; able to contol urination and bowels; able to dress with limited or no assistance; able to feed self with limited or no assistance; able to get out of chair or bed with limited or no assistance; able to groom with limited or no assistance; able to toilet with limited or no assistance Instrumental Activities of Daily Living:able to do house work with limited or no assistance; able to grocery shop with limited or no assistance; able to manage medications with limited or no assistance; able to manage money with limited or no assistance; able to prepare meals with limited or no assistance; able to use the phone with limited or no assistance Falls Risk Assessment:no frequent falls while walking; no fall in the past year; no fall since last visit; no dizziness/vertigo Home Safety:no unsafe bekah hazzards; no unsafe stairs; no unsafe gas appliances; working smoke/CO detectors; wears protective head gear for biking/high velocity; use of seatbelts; practicing 'safer sex'; no vision or hearing loss while driving; no fire arms; has hand bars in the bathroom/shower; good lighting in the home 71 yo with voice tremor here for wellness they are selling home [facility] Opal Bat[facility] DO [address], [place], [address], [facility] 07/27/2021 20:42:11 OBGyn Episode No OBEpisode recorded.
[2024-05-20 12:28] LABS: Triglycerides 118 mg/dL (0-150)
--- NOTE | 2024-05-20 12:47 | PC.NURSE ---
PT report called to [facility] on Med surg.
--- NOTE | 2024-05-20 15:01 | P.HP_ITS ---
Providers/Chief Complaint 2 Admitting Physician: Winston Valverde MD Primary Care Provider: Aby Herndon NP Chief Complaint: ABD Pain History of Present Illness Tracey Dolan is a 74 year old female with past medical history of hypertension presented to the ER last night with complaining of abdominal pain, nausea and vomiting which has been ongoing for last 24 hours. Symptoms started abruptly. Patient thought that she is passing kidney stone hence she presented to the ER. She was diagnosed of having pancreatitis in the ER. There was concern for cholelithiasis with mild gallbladder wall thickening hence an MRCP was done which showed gallbladder wall thickening with small stones and sludge, central ductal dilatation with no persistent filling defects. When seen in the ER patient was laying comfortably in bed. She denies of having any nausea currently. We did discuss that unfortunately because of pancreatitis she has had multiple changes in her blood work including dehydration, acute kidney injury which puts her at a higher risk of morbidity because of pancreatitis. Discussed about possible transfer to a tertiary center where gastroenterology is available though she wants to continue treatment at [facility] for now and see how she does. She denies any alcohol use, changes in her medication recently, smoking or past history of pancreatitis. Review of Systems 2 General: Reports: 10 or more systems reviewed and unremarkable except in HPI and below Const: Denies: fever(s), chills, body aches, change in appetite, change in weight, malaise, night sweats, diaphoresis, change in sleep pattern, daytime sleepiness or snoring Eyes: Denies: change in vision, blurry vision, photophobia, eye discomfort or eye discharge ENMT: Denies: throat pain, enlarged tonsils, hoarseness, mouth pain, oral sores, dry mouth, tinnitus, nasal congestion or post nasal drip Card: Denies: chest pain, palpitations, irregular heart rhythm, edema, swelling of feet/ankles, lightheadedness, syncope, pre-syncope, dyspnea on exertion, orthopnea, leg pain with exertion or acrocyanosis Resp: Denies: dyspnea, productive cough, non-productive cough, wheezing, stridor, pain on inspiration, change in phlegm color, hemoptysis or chest congestion GI: Denies: abdominal pain, nausea, vomiting, hematemesis, coffee ground emesis, dysphagia, heartburn, diarrhea, constipation, bloating, GI cramping, change in bowel habits, pain on defecation, hematochezia or melena : Denies: flank pain, dysuria, urinary frequency, urinary urgency, urinary hesitancy, nocturia or hematuria Musc: Denies: neck pain, back pain, extremity pain, joint pain, joint swelling, joint redness, joint stiffness or limited range of motion Neuro: Denies: headache(s), numbness in extremities, weakness in extremities, sensory changes, lack of coordination, difficulty walking, frequent falls, dizziness, vertigo, confusion, Slurred speech present, difficulty communicating thoughts or seizure-like activity Psych: Denies: anxiety, depression, mood swings, panic attacks, hopelessness or irritability Endo: Denies: polyuria, polydipsia, tired all the time, cold intolerance, excessive sweating, flushing or heat intolerance Igor/Lymph: Denies: easy bruising or easy bleeding All/Imm: Denies: tongue swelling, facial swelling or acute wheezing Medications/Allergies Home Medications ?Medication ?Instructions ?Recorded ?Confirmed ?Last Taken ?Type aspirin 81 mg tablet,delayed 81 mg PO DAILY 03/23/22 0 05/20/24 05/18/24 History release (Adult Low Dose Aspirin) mecobalamin (vitamin B12) 1,000 1,000 mcg sublingual D AILY 04/02/23 05/20/24 05/18/24 History mcg disintegrating tablet,sublingual lisinopril 20 mg tablet 20 mg PO DAILY #90 tabs 11/1305/20/24 05/18/24 Rx krill oil 500 mg capsule 500 mg PO DAILY 03/31/2411/0605/18/24 History multivitamin 1 tab PO DAILY 03/31/2411/0605/18/24 History Allergies Allergy/AdvReac Type Severity Reaction Status Date / Time No Known Allergies Allergy Verified 05/19/24 23:10 PFSH Acute 2 PFSH: Medical History (Updated 05/20/24 @ 15:04 by Winston Valverde MD) Hypertension Hyperlipidemia Surgical History (Updated 05/20/24 @ 15:04 by Winston Valverde MD) History of tonsillectomy History of ear surgery RIGHT EAR DRUM Family History Denies family history of Diabetes CAD (coronary artery disease) Cancer Social History Smoking and tobacco/nicotine status: never used tobacco/nicotine Alcohol intake: current Alcohol intake frequency: holidays/special occasions only Vitals/I&O/Wt Last Vital Signs Temp 97.1 F L 05/20/24 13:41 Pulse 108 H 05/20/24 13:41 Resp 14 05/20/24 13:41 BP 114/74 05/20/24 13:41 Pulse Ox 93 05/20/24 13:41 O2 Del Method Room Air 05/20/24 13:41 05/20/24 05/20/24 05/20/24 06:59 14:59 22:59 Intake Total 3691 / 3691 Output Total 250 / 250 Balance 3441 / 3441 Weight last 48 hrs Weight 68.991 kg Weight 63.503 kg Physical Exam 2 Narrative: General: No acute distress, AO x3, dehydrated HEENT: PERRLA, pupils bilaterally equal and reactive Chest: Normal vesicular breath sounds, no added sounds, equal good air entry bilaterally CVS: S1-S2 regular, no murmurs, no tachycardia, no gallops, no rubs Abdomen: Tenderness present in right upper quadrant and epigastric region, bowel sounds sluggish Neuro: No focal deficits, no facial deformity, AO x3, power 5/5 in all limbs Data 05/19/24 23:47 05/19/24 23:47 A&P Assessment and plan (1) Acute pancreatitis: Seen on CT abdomen/pelvis. Associated with elevated hematocrit, acute kidney injury, transaminitis, metabolic acidosis. Given all of the above patient's [place] score is found to be 18 which comes with 25% nonoperative mortality Appreciate MRCP. No concern for obstructive cholecystitis. Though pancreatic duct not clearly visible. Appreciate surgical recommendations. Discussed with the patient regarding possible transfer to tertiary center where gastroenterology is available. Patient wants to hold off on transfer for now. Check triglyceride level. NPO. IV fluid NS at 100 cc/h. Protonix twice daily, Zofran as needed. Morphine 2 mg every 4 hours as needed for pain control. (2) Acute kidney injury: Most likely in setting of dehydration and sepsis due to pancreatitis along with home use of lisinopril. Associated with metabolic acidosis. IV fluid as above. Strict input charting, daily weights. Medical reconciliation done for nephrotoxic drugs. (3) Sepsis: SIRS: Tachycardic, leukocytosis Source: Intra-abdominal/pancreatitis End organ damage: Acute kidney injury Lactic acid elevated Patient did receive full 30 mL/kg BW. Continue with NS at 100 cc/h. Monitor blood pressures. Keep mean artery pressure 65 mmHg. Check blood culture, urinalysis, MRSA swab, trend procalcitonin. Empirically continue with IV Zosyn for now. (4) Transaminitis: Obstructive gallbladder pathology ruled out with MRCP. Though distal CBD and pancreatic duct could not be visualized due to pancreatic inflammation. Continue to monitor. Zofran as needed. Check hepatitis panel. Surgical team on board. (5) Elevated lactic acid level: In setting of sepsis and dehydration. IV fluid as above. Monitor daily. (6) Choledocholithiasis: (7) Hypertension: Goal blood pressure less than 140/90 mmHg with mean over 65. Hold off on home antihypertensive for now. Qualifiers: Hypertension type: primary hypertension Qualified Code(s): I10 - Essential (primary) hypertension (8) Hyperlipidemia: (9) Metabolic acidosis: Plan No labs available today. Check stat CBC, CMP. CODE STATUS: Full code N.p.o. Protonix for PUD prophylaxis Heparin 5000 Q12 hourly for DVT prophylaxis PDMP PDMP Reviewed: Not Reviewed Attestations 2 Medical Necessity Statement*: admission for more than 2 midnights for management of severe pancreatitis, acute kidney injury, transaminitis, lactic acidosis Diagnoses Acute pancreatitis K85.90 Acute kidney injury N17.9 Sepsis A41.9 Transaminitis R74.01 Elevated lactic acid level R79.89 Choledocholithiasis K80.50 Primary hypertension I10 Hypertension type: primary hypertension Hyperlipidemia E78.5 Metabolic acidosis E87.20
[2024-05-20 15:46] LABS: Basophils % 0.2 %; Hematocrit 47.4 % (36-47); Lymphocytes # 1.1 10^3/uL (0.8-4.8); Lymphocytes % 12.8 %; Mean Corpuscular HGB Conc 33.1 g/dL (30-55); Mean Corpuscular Hemoglobin 30.4 pg (27-33); Mean Corpuscular Volume 91.7 fl (85-98); Mean Platelet Volume 10.5 fL (7.4-10.4); Monocytes # 0.5 10^3/uL (0.2-0.9); Monocytes % 5.7 %; Neutrophils # 7.15 10^3/uL (1.8-7.7); Neutrophils % 81.2 %; Nucleated Red Blood Cells % 0 %; Platelet Count 193 10^3/cmm (157-399); Red Blood Count 5.17 10^6/uL (3.85-5.65); Red Cell Distribution Width 12.3 % (12.1-15.1); White Blood Count 8.81 10^3/uL (3.29-11.43)
[2024-05-20 15:47] LABS: Procalcitonin 0.61 ng/mL (0-0.5); Thyroid Stimulating Hormone 1.21 uIU/mL (0.27-4.20); Vitamin B12 1452 pg/mL (232-1245)
[2024-05-20 15:58] LABS: Alanine Aminotransferase 330 U/L (0-33); Albumin Level 4.2 g/dL (3.5-5.2); Alkaline Phosphatase 153 U/L (35-105); Anion Gap 32.2 (5-19); Aspartate Amino Transferase 163 U/L (0-32); Blood Urea Nitrogen 52 mg/dL (8-23); Carbon Dioxide 14 mmol/L (22-29); Chloride 95 mmol/L (98-107); Globulin 2.9 g/dL (1.3-4.6); Glucose 333 mg/dL (65-115); Iron 28 ug/dL (37-145); Osmolality Calculated 309 mOsm/kg (285-295); Percent Saturation 10.5 % (20-50); Potassium 5.2 mmol/L (3.5-5.1); Sodium 136 mmol/L (136-145); Total Bilirubin 0.7 mg/dL (0.15-1.2); Total Iron Binding Capacity 266 mcg/dl; Total Protein 7.1 g/dL (6.6-8.7); Unsaturated Iron Binding 238 ug/dL (112-347)
[2024-05-20 16:22] LABS: Estmated Average Glucose 128; Hemoglobin A1C 6.1 % (4.0-6.0)
--- NOTE | 2024-05-20 16:51 | PC.PHAR ---
[id number] ZOSYN: CR IS IMPROVING. EST CRCL IS 22. ENTERED Q8H EXTENDED DOSE
[2024-05-20 17:54] LABS: ABG PCO2 32.6 mmHg (35-45); ABG PH Result 7.38 (7.35-7.45); Arterial Blood Gas Hematocrit 48.5 % (37-47); Base Excess ABG -4.9 mmol/L (-2.0-2.0); Blood Gas Allen Test Pos; Blood Gas Sample Site Radial, right; Blood Gas Sample Type Arterial; Carboxyhemoglobin 1.3 %THgb (0.4-20.1); HCO3 ABG 19.2 mmol/L (22-26); HGB O2 Sat 89.9 % (95-100); Methemoglobin 0.3 % (0.4-1.5); Oxygen Saturation ABG 91.4; PO2 ABG 55.4 mmHg (80.0-100.0); Potassium Level - ABG 4.8 mmol/L (3.5-5.0); Total Hemoglobin 15.8 g/dL (12-16)
[2024-05-20 18:01] LABS: Blood Gas Operator Identificat AH; Oxygen Device ROOM AIR; PO2 FiO2 Ratio Arterial Blood 263
[2024-05-20] MEDS: pantoprazole 40 mg SDV IVP (18:26)
[2024-05-20] MEDS: docusate sodium 100 mg Capsule PO (18:26)
[2024-05-20] MEDS: heparin 5,000 unit/mL INJ 1 mL 5000 UNIT SUBCUT (18:26)
[2024-05-21] VITALS (9 sets, daily range): BP systolic 126–152; BP diastolic 74–85; PULSE 75–106; RESP 14–18; TEMP 36.4–37; O2SAT 87–98
[2024-05-21] MEDS: piperacillin-tazobactam 3.375 GM in sodium chloride 0.9% (plus) 50 ML IV ×3 (03:38→17:56)
[2024-05-21 04:24] LABS: Basophils % 0.3 %; Eosinophils # 0.1 10^3/uL (0.0-0.8); Eosinophils % 0.6 %; Hematocrit 45.6 % (36-47); Lymphocytes # 0.9 10^3/uL (0.8-4.8); Lymphocytes % 10.6 %; Mean Corpuscular Volume 93.8 fl (85-98); Mean Platelet Volume 11.4 fL (7.4-10.4); Monocytes # 0.5 10^3/uL (0.2-0.9); Monocytes % 5.5 %; Neutrophils # 7.14 10^3/uL (1.8-7.7); Neutrophils % 82.7 %; Nucleated Red Blood Cells % 0 %; Platelet Count 143 10^3/cmm (157-399); Red Blood Count 4.86 10^6/uL (3.85-5.65); Red Cell Distribution Width 12.6 % (12.1-15.1); White Blood Count 8.65 10^3/uL (3.29-11.43)
[2024-05-21 04:42] LABS: Procalcitonin 1.42 ng/mL (0-0.5)
[2024-05-21 04:47] LABS: Alanine Aminotransferase 128 U/L (0-33); Albumin Level 2.6 g/dL (3.5-5.2); Alkaline Phosphatase 105 U/L (35-105); Anion Gap 16.9 (5-19); Aspartate Amino Transferase 63 U/L (0-32); Blood Urea Nitrogen 39 mg/dL (8-23); Calcium 6.7 mg/dL (8.5-10.5); Carbon Dioxide 18 mmol/L (22-29); Chloride 110 mmol/L (98-107); Creatinine Clr Calc Pharmacy 41.4981; Glucose 232 mg/dL (65-115); Magnesium 2.1 mg/dL (1.7-2.3); Osmolality Calculated 307 mOsm/kg (285-295); Phosphorus 2.2 mg/dL (2.5-4.5); Potassium 4.9 mmol/L (3.5-5.1); Sodium 140 mmol/L (136-145); Total Bilirubin 0.8 mg/dL (0.15-1.2); Total Protein 5.6 g/dL (6.6-8.7)
[2024-05-21 04:56] LABS: Slide Review Slide Review Perform
[2024-05-21 04:58] LABS: Folate Level 15.2 ng/mL (4.8-37.3)
[2024-05-21] MEDS: morphine 4 mg/mL SDV 1 mL 2 MG IVP (06:38)
[2024-05-21] MEDS: pantoprazole 40 mg SDV IVP ×2 (06:38→17:56)
[2024-05-21] MEDS: heparin 5,000 unit/mL INJ 1 mL 5000 UNIT SUBCUT ×2 (06:38→17:57)
[2024-05-21] MEDS: sodium chloride 0.9% 1,000 ML 100 ML IV ×2 (06:39→15:38)
[2024-05-21] MEDS: ondansetron 2 mg/ML SDV 2 mL 4 MG IVP (06:40)
--- NOTE | 2024-05-21 09:33 | P.PN_ITS ---
Subjective 2 Subjective: Patient admitted with severe pancreatitis. Stable overnight. Vital signs have improved. Still feeling nauseous and still abdominal pain radiating to the back. Vitals/I&O/Wt Last Vital Signs Temp 98.6 F 05/21/24 08:14 Pulse 75 05/21/24 08:14 Resp 15 05/21/24 08:14 BP 134/76 05/21/24 08:14 Pulse Ox 96 05/21/24 08:14 O2 Del Method Room Air 05/21/24 08:14 05/20/24 05/21/24 05/21/24 22:59 07:59 14:59 Intake Total 925.000 / 4616.000 1452.917 / 6068.917 0 / 0 Balance 925.000 / 4366.000 1452.917 / 5818.917 0 / 0 Weight last 48 hrs Weight 148 lb Weight 152 lb 1.6 oz Weight 140 lb Physical Exam 2 GI: OTHER: Abdomen is soft, is distended, there is some mild diffuse tenderness. Data 05/21/24 03:21 05/21/24 03:21 Micro: Microbiology 05/20/24 04:01 Blood Culture - Preliminary Blood SPECIMEN COLLECTED 05/20/24 04:02 Blood Culture - Preliminary Blood SPECIMEN COLLECTED A&P Assessment and plan (1) Acute pancreatitis: (2) Transaminitis: (3) Choledocholithiasis: Plan Progression appears to be adequate, patient has a severe acute pancreatitis, with can expect improvement of clinical symptoms to be as low due to the severity of the intra-abdominal inflammation. Her abdomen does look somehow distended, I do suspect that there is some component of third spacing with free intra-abdominal fluid due to the severe pancreatitis. White count has improved laboratory work of appears to be slowly improving in terms of LFTs. I appreciate medical management by primary team. General surgery will remain available as needed. We recommend that she should continue on bowel rest until there is some improvement of her symptoms and abdominal exam PDMP PDMP Reviewed: Not Reviewed Attestations 2 Medical Necessity Statement*: per medical team Coding Level of Care Code Acute Code for [facility] Fwd Diagnoses Acute pancreatitis K85.90 Transaminitis R74.01 Choledocholithiasis K80.50
--- NOTE | 2024-05-21 13:08 | P.PN_ITS ---
Subjective 2 Subjective: No acute events overnight. Today morning patient drank water after which she started having abdominal pain and nausea. States now she is feeling better. Otherwise denies any nausea, vomiting. Has remained hemodynamically stable and afebrile. Vitals/I&O/Wt Last Vital Signs Temp 98.5 F 05/21/24 12:00 Pulse 86 05/21/24 12:00 Resp 16 05/21/24 12:00 BP 126/74 05/21/24 12:00 Pulse Ox 97 05/21/24 12:00 O2 Del Method Room Air 05/21/24 12:00 05/20/24 05/21/24 05/21/24 22:59 07:59 14:59 Intake Total 925.000 / 4616.000 1452.917 / 6068.917 0 / 0 Balance 925.000 / 4366.000 1452.917 / 5818.917 0 / 0 Weight last 48 hrs Weight 67.132 kg Weight 68.991 kg Weight 63.503 kg Physical Exam 2 Narrative: General: No acute distress, AO x3, dehydrated HEENT: PERRLA, pupils bilaterally equal and reactive Chest: Normal vesicular breath sounds, no added sounds, equal good air entry bilaterally CVS: S1-S2 regular, no murmurs, no tachycardia, no gallops, no rubs Abdomen: Tenderness present in right upper quadrant and epigastric region, bowel sounds sluggish, distended Neuro: No focal deficits, no facial deformity, AO x3, power 5/5 in all limbs Data 05/21/24 03:21 05/21/24 03:21 Micro: Microbiology 05/20/24 04:01 Blood Culture - Preliminary Blood SPECIMEN COLLECTED 05/20/24 04:02 Blood Culture - Preliminary Blood SPECIMEN COLLECTED A&P Assessment and plan (1) Acute pancreatitis: Seen on CT abdomen/pelvis. Associated with elevated hematocrit, acute kidney injury, transaminitis, metabolic acidosis. Given all of the above patient's [place] score is found to be 18 which comes with 25% nonoperative mortality Appreciate MRCP. No concern for obstructive cholecystitis. Though pancreatic duct not clearly visible. Appreciate surgical recommendations. Discussed with the patient regarding possible transfer to tertiary center where gastroenterology is available. Patient wants to hold off on transfer for now. NPO. Continue with IV fluid NS at 100 cc/h. Protonix twice daily, Zofran as needed. Morphine 2 mg every 4 hours as needed for pain control. Monitor renal functions, hematocrit, liver functions. (2) Acute kidney injury: Resolving. Most likely in setting of dehydration and sepsis due to pancreatitis along with home use of lisinopril. Metabolic acidosis improving. IV fluid as above. Strict input charting, daily weights. Medical reconciliation done for nephrotoxic drugs. (3) Sepsis: SIRS: Tachycardic, leukocytosis Source: Intra-abdominal/pancreatitis End organ damage: Acute kidney injury Lactic acid elevated Patient did receive full 30 mL/kg BW. Continue with NS at 100 cc/h. Monitor blood pressures. Keep mean artery pressure 65 mmHg. Follow-up blood culture, urinalysis, MRSA swab, trend procalcitonin. Empirically continue with IV Zosyn for now. (4) Transaminitis: Obstructive gallbladder pathology ruled out with MRCP. Though distal CBD and pancreatic duct could not be visualized due to pancreatic inflammation. Improving. No hyperbilirubinemia, improvement in AST and ALT. Alkaline phosphatase normal today. Continue to monitor. Zofran as needed. Negative hepatitis panel. Surgical team on board. (5) Elevated lactic acid level: In setting of sepsis and dehydration. IV fluid as above. Repeat in AM. (6) Choledocholithiasis: (7) Hypertension: Goal blood pressure less than 140/90 mmHg with mean over 65. Hold off on home antihypertensive for now. Qualifiers: Hypertension type: primary hypertension Qualified Code(s): I10 - Essential (primary) hypertension (8) Hyperlipidemia: (9) Metabolic acidosis: Plan Encouraged patient to ambulate. Incentive spirometry. CODE STATUS: Full code N.p.o. Protonix for PUD prophylaxis Heparin 5000 Q12 hourly for DVT prophylaxis PDMP PDMP Reviewed: Not Reviewed Attestations 2 Medical Necessity Statement*: requires further hospitalization for management of severe pancreatitis with transaminitis, ABIOLA with metabolic acidosis Diagnoses Acute pancreatitis K85.90 Acute kidney injury N17.9 Sepsis A41.9 Transaminitis R74.01 Elevated lactic acid level R79.89 Choledocholithiasis K80.50 Primary hypertension I10 Hypertension type: primary hypertension Hyperlipidemia E78.5 Metabolic acidosis E87.20
[2024-05-21] MEDS: docusate sodium 100 mg Capsule PO (17:56)
[2024-05-22] VITALS (7 sets, daily range): BP systolic 127–159; BP diastolic 74–95; PULSE 100–106; RESP 15–18; TEMP 36.3–37.1; O2SAT 91–97
[2024-05-22] MEDS: piperacillin-tazobactam 3.375 GM in sodium chloride 0.9% (plus) 50 ML IV ×3 (01:44→16:46)
[2024-05-22] MEDS: sodium chloride 0.9% 1,000 ML 100 ML IV ×3 (01:44→23:24)
[2024-05-22 02:57] LABS: Basophils # 0.1 10^3/uL (0.0-0.1); Basophils % 0.5 %; Eosinophils % 0.3 %; Hematocrit 40.2 % (36-47); Lymphocytes # 0.9 10^3/uL (0.8-4.8); Lymphocytes % 8.2 %; Mean Corpuscular HGB Conc 32.1 g/dL (30-55); Mean Corpuscular Hemoglobin 29.9 pg (27-33); Mean Corpuscular Volume 93.3 fl (85-98); Mean Platelet Volume 10.9 fL (7.4-10.4); Monocytes # 0.6 10^3/uL (0.2-0.9); Monocytes % 5.1 %; Neutrophils # 9.45 10^3/uL (1.8-7.7); Neutrophils % 85.4 %; Nucleated Red Blood Cells % 0 %; Platelet Count 157 10^3/cmm (157-399); Red Blood Count 4.31 10^6/uL (3.85-5.65); Red Cell Distribution Width 13.1 % (12.1-15.1); White Blood Count 11.06 10^3/uL (3.29-11.43)
[2024-05-22 03:20] LABS: Alanine Aminotransferase 75 U/L (0-33); Albumin Level 2.6 g/dL (3.5-5.2); Alkaline Phosphatase 95 U/L (35-105); Anion Gap 14.3 (5-19); Aspartate Amino Transferase 48 U/L (0-32); Blood Urea Nitrogen 27 mg/dL (8-23); Carbon Dioxide 19 mmol/L (22-29); Chloride 115 mmol/L (98-107); Creatinine Clr Calc Pharmacy 50.0957; Globulin 2.8 g/dL (1.3-4.6); Glucose 214 mg/dL (65-115); Magnesium 2.3 mg/dL (1.7-2.3); Osmolality Calculated 310 mOsm/kg (285-295); Phosphorus 1.9 mg/dL (2.5-4.5); Potassium 4.3 mmol/L (3.5-5.1); Sodium 144 mmol/L (136-145); Total Bilirubin 0.8 mg/dL (0.15-1.2); Total Protein 5.4 g/dL (6.6-8.7)
[2024-05-22 03:22] LABS: Lactic Sepsis W/Reflex 1.2 mmol/L (0.5-2.2)
[2024-05-22 03:28] LABS: Slide Review Slide Review Perform
[2024-05-22] MEDS: heparin 5,000 unit/mL INJ 1 mL 5000 UNIT SUBCUT ×2 (05:40→16:46)
[2024-05-22] MEDS: pantoprazole 40 mg SDV IVP ×2 (05:41→16:46)
[2024-05-22] MEDS: docusate sodium 100 mg Capsule PO ×2 (08:38→16:46)
--- NOTE | 2024-05-22 11:54 | XRR_ITS ---
PROCEDURE INFORMATION: Exam: XR Chest Exam date and time: 05/22/2024 12:48 PM Age: 74 years old Clinical indication: Shortness of breath; Additional info: New oxygen requirement TECHNIQUE: Imaging protocol: Radiologic exam of the chest. Views: 1 view. COMPARISON: MR MRCP [id number] 05/20/2024 8:01 AM FINDINGS: Lungs: There is pulmonary hypoinflation. There is focal airspace disease in the left lower lobe and probable subsegmental atelectasis at the right lung base. No evidence for pulmonary edema. Pleural spaces: There is a small left pleural effusion. Heart/Mediastinum: Mildly enlarged. Bones/joints: Intact. Other findings: None. XR/XR chest 1V portable [id number] IMPRESSION: 1. Pulmonary hypoinflation. 2. Left lower lobe pneumonia and small associated parapneumonic effusion. Short-term radiographic follow-up is recommended to ensure complete resolution and exclude the possibility of underlying malignancy. 3. Probable subsegmental atelectasis versus 2nd area of infiltrate at the right lung base. 4. Mild cardiomegaly.
[2024-05-22] MEDS: ondansetron 2 mg/ML SDV 2 mL 4 MG IVP (15:19)
--- NOTE | 2024-05-22 19:26 | PM.PN ---
Vitals/I&O/Wt Last Vital Signs Temp 97.6 F 05/22/24 16:27 Pulse 106 H 05/22/24 16:27 Resp 17 05/22/24 16:27 BP 147/92 05/22/24 16:27 Pulse Ox 93 05/22/24 16:27 O2 Del Method Nasal Cannula 05/22/24 16:27 O2 Flow Rate 3 05/22/24 11:45 05/22/24 05/22/24 05/22/24 06:59 14:59 22:59 Intake Total 958.333 / 6267.733 6454 / 1050 Output Total 500 / 1250 300 / 300 Balance 458.333 / 706.666 750 / 750 Weight last 48 hrs Weight 68.538 kg Weight 67.132 kg Data 05/22/24 02:48 05/22/24 02:48 Micro: Microbiology 05/20/24 04:01 Blood Culture - Preliminary Blood NEGATIVE TO DATE 05/20/24 04:02 Blood Culture - Preliminary Blood NEGATIVE TO DATE A&P Assessment and plan (1) Acute pancreatitis: Seen on CT abdomen/pelvis. Associated with elevated hematocrit, acute kidney injury, transaminitis, metabolic acidosis. Given all of the above patient's [place] score is found to be 18 which comes with 25% nonoperative mortality Appreciate MRCP. No concern for obstructive cholecystitis. Though pancreatic duct not clearly visible. Appreciate surgical recommendations. Discussed with the patient regarding possible transfer to tertiary center where gastroenterology is available. Patient wants to hold off on transfer for now. Plan For now will continue current management Remain NPO tonight Will discuss with surgery again Repeat labs in a.m. (2) Acute kidney injury: Currently resolved Creatinine 0.9 today (3) Sepsis: Patient was noted to have lower lobe pneumonia on chest x-ray today Does not have any significant respiratory complaints May be aspiration with initial nausea vomiting Empirically continue with IV Zosyn for now. Will continue IV antibiotics for now (4) Transaminitis: Obstructive gallbladder pathology ruled out with MRCP. Though distal CBD and pancreatic duct could not be visualized due to pancreatic inflammation. Improving. No hyperbilirubinemia, improvement in AST and ALT. Alkaline phosphatase normal today. Continue to monitor. Zofran as needed. Negative hepatitis panel. Surgical team on board. CMP in a.m. (5) Elevated lactic acid level: Resolves (6) Choledocholithiasis: (7) Hypertension: Goal blood pressure less than 140/90 mmHg with mean over 65. Hold off on home antihypertensive for now. Qualifiers: Hypertension type: primary hypertension Qualified Code(s): I10 - Essential (primary) hypertension (8) Hyperlipidemia: (9) Metabolic acidosis: Plan patient was noted to be hypoxic today requiring 3 L of O2. Chest x-ray was obtained which showed evidence of left lower lobe infiltrates possible pneumonia. She does not have any respiratory complaints. Has been on IV Zosyn. Will continue current IV antibiotics. Repeat labs again in a.m.. Wean O2 as tolerated. PDMP PDMP Reviewed: Not Reviewed Attestations Medical Necessity Statement*: requires further hospitalization for management of severe pancreatitis with transaminitis, ABIOLA with metabolic acidosis Coding Level of Care Code Acute Code for [facility] Diagnoses Acute pancreatitis K85.90 Acute kidney injury N17.9 Sepsis A41.9 Transaminitis R74.01 Elevated lactic acid level R79.89 Choledocholithiasis K80.50 Primary hypertension I10 Hypertension type: primary hypertension Hyperlipidemia E78.5 Metabolic acidosis E87.20
[2024-05-23] MEDS: piperacillin-tazobactam 3.375 GM in sodium chloride 0.9% (plus) 50 ML IV ×3 (01:05→17:13)
[2024-05-23 04:00] VITALS: BP 158/89; PULSE 99; RESP 17; TEMP 36.9; O2SAT 94
[2024-05-23] MEDS: pantoprazole 40 mg SDV IVP ×2 (05:18→17:12)
[2024-05-23] MEDS: heparin 5,000 unit/mL INJ 1 mL 5000 UNIT SUBCUT ×2 (05:18→17:12)
[2024-05-23 05:31] LABS: Hematocrit 31.8 % (36-47); Mean Corpuscular HGB Conc 31.8 g/dL (30-55); Mean Corpuscular Hemoglobin 30.1 pg (27-33); Mean Corpuscular Volume 94.9 fl (85-98); Mean Platelet Volume 11.4 fL (7.4-10.4); Platelet Count 190 10^3/cmm (157-399); Red Blood Count 3.35 10^6/uL (3.85-5.65); Red Cell Distribution Width 13.8 % (12.1-15.1); White Blood Count 11.34 10^3/uL (3.29-11.43)
[2024-05-23 05:55] LABS: Alanine Aminotransferase 56 U/L (0-33); Albumin Level 2.2 g/dL (3.5-5.2); Alkaline Phosphatase 107 U/L (35-105); Aspartate Amino Transferase 35 U/L (0-32); Blood Urea Nitrogen 29 mg/dL (8-23); Calcium 7.5 mg/dL (8.5-10.5); Carbon Dioxide 20 mmol/L (22-29); Chloride 122 mmol/L (98-107); Creatinine Clr Calc Pharmacy 50.7048; Globulin 3.2 g/dL (1.3-4.6); Glucose 173 mg/dL (65-115); Osmolality Calculated 324 mOsm/kg (285-295); Sodium 152 mmol/L (136-145); Total Bilirubin 0.7 mg/dL (0.15-1.2); Total Protein 5.4 g/dL (6.6-8.7)
[2024-05-23 05:57] LABS: Anion Gap 14.4 (5-19); Potassium 4.4 mmol/L (3.5-5.1)
[2024-05-23 06:01] LABS: Procalcitonin 0.45 ng/mL (0-0.5)
[2024-05-23] MEDS: ondansetron 2 mg/ML SDV 2 mL 4 MG IVP (06:11)
[2024-05-23 06:16] LABS: Magnesium 2.7 mg/dL (1.7-2.3); Phosphorus 1.8 mg/dL (2.5-4.5)
[2024-05-23 06:27] LABS: Absolute Neutrophil 9.8 10^3/cmm (1.4-6.5); Absolute Segmented Neutrophil 8.2 10/cmm (1.6-7.1); Band Neutrophils Absolute 1.6 10^3/cmm (0.0-1.2); Eosinophils 0 %; Lymphocytes 7 %; Monocytes Absolute 0.6 10^3/cmm (0.1-0.6); Platelet Estimate Normal (Normal); Segmented Neutrophils 72 %; Slide Review Slide Review Perform; Total Cells Counted 100 (0-100)
[2024-05-23 08:07] VITALS: BP 170/91; PULSE 103; RESP 16; TEMP 36.4; O2SAT 96
[2024-05-23 11:35] VITALS: BP 157/82; PULSE 102; RESP 18; TEMP 36.7; O2SAT 95
[2024-05-23] MEDS: dextrose 5%-sod chloride 0.45% 1,000 ML 50 ML IV (13:05)
[2024-05-23 16:01] VITALS: BP 145/83; PULSE 99; RESP 18; TEMP 36.7; O2SAT 93
--- NOTE | 2024-05-23 18:08 | P.PN_ITS ---
Subjective 2 Subjective: Noted ongoing improvement no respiratory compaints Pain improved. Vitals/I&O/Wt Last Vital Signs Temp 98.1 F 05/23/24 16:01 Pulse 99 05/23/24 16:01 Resp 18 05/23/24 16:01 BP 145/83 05/23/24 16:01 Pulse Ox 93 05/23/24 16:01 O2 Del Method Nasal Cannula 05/23/24 16:01 O2 Flow Rate 3 05/23/24 04:00 05/23/24 05/23/24 05/23/24 06:59 14:59 22:59 Intake Total 306.667 / 2131.667 1410 / 1410 Output Total 600 / 900 Balance -293.333 / 6450.963 2288 / 1410 Weight last 48 hrs Weight 68.946 kg Weight 68.538 kg Physical Exam 2 Narrative: General: No acute distress, AO x3, dehydrated HEENT: PERRLA, pupils bilaterally equal and reactive Chest: Normal vesicular breath sounds, no added sounds, equal good air entry bilaterally CVS: S1-S2 regular, no murmurs, no tachycardia, no gallops, no rubs Abdomen: Tenderness present in right upper quadrant and epigastric region, bowel sounds sluggish, distended Neuro: No focal deficits, no facial deformity, AO x3, power 5/5 in all limbs Data 05/23/24 04:19 05/23/24 04:19 A&P Assessment and plan (1) Acute pancreatitis: Seen on CT abdomen/pelvis. Associated with elevated hematocrit, acute kidney injury, transaminitis, metabolic acidosis. Given all of the above patient's [place] score is found to be 18 which comes with 25% nonoperative mortality Appreciate MRCP. No concern for obstructive cholecystitis. Though pancreatic duct not clearly visible. Appreciate surgical recommendations. Discussed with the patient regarding possible transfer to tertiary center where gastroenterology is available. Patient wants to hold off on transfer for now. Plan CLD today Repeat labs in am Slowly advance diet (2) Acute kidney injury: Currently resolved Noted to have hypernatremia today IVF changed to D5 half today Repeat BMP in am (3) Sepsis: Patient was noted to have lower lobe pneumonia on chest x-ray today Does not have any significant respiratory complaints May be aspiration with initial nausea vomiting Empirically continue with IV Zosyn for now. Will continue IV antibiotics (4) Transaminitis: Obstructive gallbladder pathology ruled out with MRCP. Though distal CBD and pancreatic duct could not be visualized due to pancreatic inflammation. Improving. No hyperbilirubinemia, improvement in AST and ALT. Alkaline phosphatase normal today. Continue to monitor. Zofran as needed. Negative hepatitis panel. Surgical team on board. CMP in a.m. (5) Elevated lactic acid level: Resolves (6) Choledocholithiasis: (7) Hypertension: Goal blood pressure less than 140/90 mmHg with mean over 65. Hold off on home antihypertensive for now. Qualifiers: Hypertension type: primary hypertension Qualified Code(s): I10 - Essential (primary) hypertension (8) Hyperlipidemia: (9) Metabolic acidosis: Plan Continuous pulse oxy Wean as tolerated Incentive spirometry PDMP PDMP Reviewed: Not Reviewed Attestations 2 Medical Necessity Statement*: requires further hospitalization for management of severe pancreatitis with transaminitis, ABIOLA with metabolic acidosis Coding Level of Care Code Acute Code for [facility] Diagnoses Acute pancreatitis K85.90 Acute kidney injury N17.9 Sepsis A41.9 Transaminitis R74.01 Elevated lactic acid level R79.89 Choledocholithiasis K80.50 Primary hypertension I10 Hypertension type: primary hypertension Hyperlipidemia E78.5 Metabolic acidosis E87.20
[2024-05-23 20:00] VITALS: O2SAT 91
[2024-05-23 20:42] VITALS: BP 139/81; PULSE 99; RESP 18; TEMP 37; O2SAT 93
[2024-05-24] VITALS (7 sets, daily range): BP systolic 120–153; BP diastolic 50–86; PULSE 90–96; RESP 16–22; TEMP 36.5–36.9; O2SAT 91–94
[2024-05-24] MEDS: piperacillin-tazobactam 3.375 GM in sodium chloride 0.9% (plus) 50 ML IV ×3 (01:37→18:09)
[2024-05-24] MEDS: pantoprazole 40 mg SDV IVP ×2 (05:23→18:09)
[2024-05-24] MEDS: heparin 5,000 unit/mL INJ 1 mL 5000 UNIT SUBCUT ×2 (05:24→18:09)
[2024-05-24 07:43] LABS: Basophils # 0.1 10^3/uL (0.0-0.1); Basophils % 0.6 %; Eosinophils % 0.2 %; Hematocrit 33.2 % (36-47); Lymphocytes # 1.3 10^3/uL (0.8-4.8); Mean Corpuscular HGB Conc 32.5 g/dL (30-55); Mean Corpuscular Hemoglobin 30.3 pg (27-33); Mean Corpuscular Volume 93.3 fl (85-98); Mean Platelet Volume 11.2 fL (7.4-10.4); Monocytes # 0.6 10^3/uL (0.2-0.9); Monocytes % 4.7 %; Neutrophils # 9.22 10^3/uL (1.8-7.7); Neutrophils % 79.4 %; Nucleated Red Blood Cells % 0.3 %; Platelet Count 178 10^3/cmm (157-399); Red Blood Count 3.56 10^6/uL (3.85-5.65); Red Cell Distribution Width 13.9 % (12.1-15.1); White Blood Count 11.62 10^3/uL (3.29-11.43)
[2024-05-24 07:59] LABS: Slide Review Slide Review Perform
[2024-05-24 08:00] LABS: Alanine Aminotransferase 44 U/L (0-33); Albumin Level 2.4 g/dL (3.5-5.2); Alkaline Phosphatase 104 U/L (35-105); Anion Gap 11.6 (5-19); Aspartate Amino Transferase 28 U/L (0-32); Blood Urea Nitrogen 21 mg/dL (8-23); Calcium 7.6 mg/dL (8.5-10.5); Carbon Dioxide 24 mmol/L (22-29); Chloride 115 mmol/L (98-107); Creatinine Clr Calc Pharmacy 57.2484; Globulin 2.9 g/dL (1.3-4.6); Glucose 239 mg/dL (65-115); Osmolality Calculated 315 mOsm/kg (285-295); Potassium 3.6 mmol/L (3.5-5.1); Sodium 147 mmol/L (136-145); Total Bilirubin 0.6 mg/dL (0.15-1.2); Total Protein 5.3 g/dL (6.6-8.7)
[2024-05-24 08:01] LABS: Lipase 64 U/L (13-60)
[2024-05-24] MEDS: dextrose 5%-sod chloride 0.45% 1,000 ML 50 ML IV (10:51)
--- NOTE | 2024-05-24 15:33 | PC.SOCIAL ---
IMM updated IMM dated and initialed copy given to patient and copy placed in chart
[2024-05-24 20:26] LABS: C.Diff PCR (Lab) NEGATIVE (Negative)
--- NOTE | 2024-05-24 20:34 | P.PN_ITS ---
Subjective 2 Subjective: Tolerated liquid diet Vitals/I&O/Wt Last Vital Signs Temp 98.4 F 05/24/24 19:59 Pulse 93 05/24/24 19:59 Resp 20 H 05/24/24 19:59 BP 152/86 05/24/24 19:59 Pulse Ox 94 05/24/24 19:59 O2 Del Method Nasal Cannula 05/24/24 19:59 O2 Flow Rate 1 05/24/24 19:59 05/24/24 05/24/24 05/24/24 06:59 14:59 22:59 Intake Total 50 / 2490 6514.5 / 6514.5 410 / 6924.5 Output Total 200 / 200 50 / 50 Balance -150 / 2290 6514.5 / 6514.5 360 / 6874.5 Weight last 48 hrs Weight 69.49 kg Weight 68.946 kg Physical Exam 2 Narrative: General: No acute distress, AO x3, dehydrated HEENT: PERRLA, pupils bilaterally equal and reactive Chest: Normal vesicular breath sounds, no added sounds, equal good air entry bilaterally CVS: S1-S2 regular, no murmurs, no tachycardia, no gallops, no rubs Abdomen: Tenderness present in right upper quadrant and epigastric region, bowel sounds sluggish, distended Neuro: No focal deficits, no facial deformity, AO x3, power 5/5 in all limbs Data 05/24/24 07:31 05/24/24 07:31 A&P Assessment and plan (1) Acute pancreatitis: Seen on CT abdomen/pelvis. Associated with elevated hematocrit, acute kidney injury, transaminitis, metabolic acidosis. Given all of the above patient's [place] score is found to be 18 which comes with 25% nonoperative mortality Appreciate MRCP. No concern for obstructive cholecystitis. Though pancreatic duct not clearly visible. Appreciate surgical recommendations. Discussed with the patient regarding possible transfer to tertiary center where gastroenterology is available. Patient wants to hold off on transfer for now. Plan advance to FULL liquid diet in am lipase improving labs improving (2) Acute kidney injury: Currently resolved Noted to have hypernatremia today IVF changed to D5 half today Repeat BMP in am (3) Sepsis: Patient was noted to have lower lobe pneumonia on chest x-ray today Does not have any significant respiratory complaints May be aspiration with initial nausea vomiting Empirically continue with IV Zosyn for now. Will continue IV antibiotics (4) Transaminitis: Obstructive gallbladder pathology ruled out with MRCP. Though distal CBD and pancreatic duct could not be visualized due to pancreatic inflammation. Improving. No hyperbilirubinemia, improvement in AST and ALT. Alkaline phosphatase normal today. Continue to monitor. Zofran as needed. Negative hepatitis panel. Surgical team on board. CMP in a.m. (5) Elevated lactic acid level: Resolves (6) Choledocholithiasis: (7) Hypertension: Goal blood pressure less than 140/90 mmHg with mean over 65. Hold off on home antihypertensive for now. Qualifiers: Hypertension type: primary hypertension Qualified Code(s): I10 - Essential (primary) hypertension (8) Hyperlipidemia: (9) Metabolic acidosis: Plan labs improving tolerating cld - full in am weaned off oxygen at rest today. PDMP PDMP Reviewed: Not Reviewed Attestations 2 Medical Necessity Statement*: requires further hospitalization for management of severe pancreatitis with transaminitis, ABIOLA with metabolic acidosis Coding Level of Care Code Acute Code for [facility] Diagnoses Acute pancreatitis K85.90 Acute kidney injury N17.9 Sepsis A41.9 Transaminitis R74.01 Elevated lactic acid level R79.89 Choledocholithiasis K80.50 Primary hypertension I10 Hypertension type: primary hypertension Hyperlipidemia E78.5 Metabolic acidosis E87.20
[2024-05-25] VITALS (7 sets, daily range): BP systolic 139–156; BP diastolic 73–88; PULSE 76–98; RESP 17–20; TEMP 36.5–36.9; O2SAT 92–98
[2024-05-25] MEDS: piperacillin-tazobactam 3.375 GM in sodium chloride 0.9% (plus) 50 ML IV ×2 (02:14→09:35)
[2024-05-25 05:06] LABS: Basophils # 0.1 10^3/uL (0.0-0.1); Basophils % 0.9 %; Eosinophils # 0.1 10^3/uL (0.0-0.8); Eosinophils % 0.4 %; Hematocrit 30.7 % (36-47); Lymphocytes # 1.2 10^3/uL (0.8-4.8); Lymphocytes % 8.1 %; Mean Corpuscular HGB Conc 32.9 g/dL (30-55); Mean Corpuscular Hemoglobin 30.4 pg (27-33); Mean Corpuscular Volume 92.5 fl (85-98); Mean Platelet Volume 11.5 fL (7.4-10.4); Monocytes # 0.5 10^3/uL (0.2-0.9); Monocytes % 3.2 %; Neutrophils # 12.77 10^3/uL (1.8-7.7); Neutrophils % 84.2 %; Nucleated Red Blood Cells % 0.2 %; Platelet Count 149 10^3/cmm (157-399); Red Blood Count 3.32 10^6/uL (3.85-5.65); Red Cell Distribution Width 14.2 % (12.1-15.1); White Blood Count 15.15 10^3/uL (3.29-11.43)
[2024-05-25 05:27] LABS: Anion Gap 10.5 (5-19); Blood Urea Nitrogen 16 mg/dL (8-23); Calcium 7.5 mg/dL (8.5-10.5); Carbon Dioxide 24 mmol/L (22-29); Chloride 112 mmol/L (98-107); Creatinine Clr Calc Pharmacy 57.2484; Glucose 250 mg/dL (65-115); Osmolality Calculated 306 mOsm/kg (285-295); Potassium 3.5 mmol/L (3.5-5.1); Sodium 143 mmol/L (136-145)
[2024-05-25 05:46] LABS: Slide Review Slide Review Perform
[2024-05-25] MEDS: dextrose 5%-sod chloride 0.45% 1,000 ML 50 ML IV (06:20)
[2024-05-25] MEDS: heparin 5,000 unit/mL INJ 1 mL 5000 UNIT SUBCUT ×2 (06:20→17:54)
[2024-05-25] MEDS: pantoprazole 40 mg SDV IVP ×2 (06:20→17:54)
--- NOTE | 2024-05-25 12:05 | CTR_ITS ---
PROCEDURE INFORMATION: Exam: CT Abdomen And Pelvis With Contrast Exam date and time: 05/25/2024 12:48 PM Age: 74 years old Clinical indication: Other: Increasing leukocytosis TECHNIQUE: Imaging protocol: Computed tomography of the abdomen and pelvis with contrast. Radiation optimization: All CT scans at this facility use at least one of these dose optimization techniques: automated exposure control; mA and/or kV adjustment per patient size (includes targeted exams where dose is matched to clinical indication); or iterative reconstruction. Contrast material: OMNI 350; Contrast volume: 100 ml; Contrast route: INTRAVENOUS (IV); COMPARISON: MR MRCP [id number] 05/20/2024 8:01 AM; CT abdomen pelvis 05/20/2024 RADIATION DOSE METRICS: Total DLP (mGy-cm): 567.19 FINDINGS: Pleural spaces: Small right and [id number] left pleural effusions. Bilateral lower lobe consolidation with air bronchograms. Also lingular consolidation/atelectasis. Liver: Normal. No mass. Gallbladder and biliary ducts: Dilatation of the proximal to mid extrahepatic duct measuring up to 10 mm in caliber. Pancreas: Much of the body of the pancreas is not visualized and replaced by fluid. This is consistent with pancreatic necrosis. Spleen: Normal. No splenomegaly. Adrenal glands: Normal. No mass. Kidneys and ureters: 1.2 cm cyst in the lower pole of the right kidney. Stomach and bowel: There is slight wall thickening of the posterior stomach. [id number]-[id number] wall thickening of small bowel loops relatively diffusely. Focal dilatation of a proximal jejunal loop measuring 3.2 cm in caliber with significant wall thickening. Mild wall thickening of the colon relatively diffusely. Appendix: No evidence of appendicitis. Intraperitoneal space: Moderate ascites is seen in the abdomen and pelvis increased in volume especially in the upper abdomen. Large fluid collection in the lesser sac. Diffuse stranding of the omental and mesenteric fat is increased. Vasculature: Unremarkable. No abdominal aortic aneurysm. Lymph nodes: Unremarkable. No enlarged lymph nodes. Urinary bladder: Unremarkable as visualized. Reproductive: Unremarkable as visualized. Bones/joints: Degenerative disc disease at L2-L3 and L4-L5 with reactive endplate changes. No acute fracture. Soft tissues: There is generalized body wall edema or anasarca. CT/CT abdomen pelvis w con* [id number] IMPRESSION: 1. Findings consistent with focal pancreatic necrosis. Large fluid collection in the lesser sac with probable reactive wall thickening of the posterior stomach. 2. Moderate ascites in the abdomen and pelvis which is increased. 3. Dilatation of the extrahepatic bile duct. 4. Wall thickening of small bowel and colon relatively diffusely. This may be reactive in the setting of potential peritonitis from acute pancreatitis. However enteritis and colitis of an infectious nature are not excluded. Focal dilatation of a proximal jejunal loop. 5. Bilateral pleural effusions and pulmonary consolidation, [id number]. COMMENTS: Consistent with the [employer]'s Incidental Findings Committee white paper (J Am Catalina Radiol 2018): Any incidental renal lesion less than 1 cm or classified as too small to characterize, or any incidental cystic renal lesion characterized as simple-appearing, is likely benign. No follow-up imaging is recommended for these lesions per consensus recommendations based on imaging criteria.
--- NOTE | 2024-05-25 12:14 | P.PN_ITS ---
Subjective 2 Subjective: Hospital Course 74-year-old female with a past medical history of hypertension, hyperlipidemia, and nephrolithiasis admitted on 05/20/2024 with severe acute pancreatitis, likely biliary in etiology. On admission: - Presented with abdominal pain for 24 hours, associated with nausea and vomiting - Labs notable for leukocytosis, acute kidney injury (creatinine 2.3, baseline 1.0), hyperglycemia, transaminitis, hyperlipasemia, and urinalysis with proteinuria, glucosuria, and hematuria - CT abdomen/pelvis and abdominal ultrasound showed findings consistent with severe pancreatitis, cholelithiasis, and cholecystitis - MRCP confirmed inflammatory changes, gallbladder pathology, and biliary ductal dilation - Treated with IV fluids and broad-spectrum antibiotics (Zosyn) Hospital Day 1-2: - Lactic acidosis improved from 5.9 to 1.2 with fluid resuscitation - Kidney function an with hyd liver enzymes improvingdration - Lipase and procalcitonin trending down - Blood cultures remained negative - Clinically improving, tolerating clear liquid diet Hospital Day 3-4: - Developed hypoxia and respiratory distress with ambulation on 05/22/2024 - Chest x-ray showed left lower lobe pneumonia, pulmonary hyperinflation, and small pleural effusion - Required 3L supplemental oxygen - Sodium increased to 152, managed with D5W - WBC count increasing, trending up to 15.1 on 05/25/2024 - Hemoglobin decreased to 10.1, platelet count to 149 - Net positive fluid balance of 6L Today patient has been having some abdominal pain in upper abdomen, mainly on left side. Intermittent now resolved. Has been tolerating CLD. No fever, chills. No nausea or vomiting. Vitals/I&O/Wt Last Vital Signs Temp 98.4 F 05/25/24 12:00 Pulse 91 05/25/24 12:00 Resp 19 H 05/25/24 12:00 BP 139/73 05/25/24 12:00 Pulse Ox 92 05/25/24 12:00 O2 Del Method Nasal Cannula 05/25/24 12:00 O2 Flow Rate 1 05/24/24 23:36 05/24/24 05/25/24 05/25/24 22:59 06:59 14:59 Intake Total 460 / 6974.5 1027.5 / 8002.0 240 / 240 Output Total 50 / 50 300 / 350 Balance 410 / 6924.5 727.5 / 7652.0 240 / 240 Weight last 48 hrs Weight 72.575 kg Weight 69.49 kg Physical Exam 2 Narrative: General: No acute distress, AO x3, dehydrated HEENT: PERRLA, pupils bilaterally equal and reactive Chest: Normal vesicular breath sounds, no added sounds, equal good air entry bilaterally CVS: S1-S2 regular, no murmurs, no tachycardia, no gallops, no rubs Abdomen: Tenderness present in right upper quadrant and epigastric region, bowel sounds sluggish, distended Neuro: No focal deficits, no facial deformity, AO x3, power 5/5 in all limbs Data 05/25/24 04:37 05/25/24 04:37 A&P Assessment and plan (1) Acute pancreatitis: (2) Acute kidney injury: (3) Sepsis: (4) Transaminitis: (5) Elevated lactic acid level: (6) Choledocholithiasis: (7) Hypertension: Qualifiers: Hypertension type: primary hypertension Qualified Code(s): I10 - Essential (primary) hypertension (8) Hyperlipidemia: (9) Metabolic acidosis: Plan #Severe Acute Pancreatitis, Likely Biliary - Severe pancreatitis, likely gallstone-related given imaging findings of cholelithiasis and biliary ductal dilation - General surgery consulted, recommended broad-spectrum antibiotics and outpatient cholecystectomy once inflammation resolves initially. - Continue supportive care with IV fluids, pain control, bowel rest - Continue Zosyn, closely monitor clinical status, inflammatory markers, WBC count - Discussed with surgery given increasing WBC count, concern for worsening inflammation or necrosis/infection - Tolerating CLD, was advanced to Full liquid today. Will make NPO for now until repeat CT abd pelvis is done - Repeat labs in am #Sepsis, Unclear Source - Sepsis on admission, possibly due to pancreatitis vs pneumonia - Blood cultures negative, procalcitonin downtrending - Now with increasing WBC count to 15.1, concerning for ongoing/worsening infection - Continue broad-spectrum antibiotics (Zosyn) - Closely monitor vital signs, WBC count, procalcitonin - Follow up on repeat CT abdomen/pelvis - Treat pneumonia #Acute Hypoxic Respiratory Failure - Developed hypoxia and respiratory distress with ambulation on 05/22/2024 - Chest x-ray with left lower lobe pneumonia, pulmonary hyperinflation, small pleural effusion. Initial CT did show severe bronchectasis - Requiring 3L supplemental oxygen - Provide oxygen to maintain saturation >92% - Encourage incentive spirometry, ambulation - Treat pneumonia with antibiotics, closely monitor respiratory status - Consider pulmonary function tests if persistent hypoxia or concern for chronic lung disease #Pneumonia - Left lower lobe pneumonia on chest x-ray on 05/22/2024, with associated hypoxia and respiratory distress - Continue broad-spectrum antibiotics (Zosyn) - Oxygen supplementation, incentive spirometry, ambulation - Serial chest x-rays to assess for improvement #Acute Kidney Injury, Resolved - Presented with creatinine 2.3 (baseline 1.0), improved to 0.9 with IV fluids by 05/22/2024 - Continue to monitor renal function, maintain adequate hydration - Avoid nephrotoxic medications #Hypernatremia - Sodium increased to 152 on 05/23/2024, improved to 143 with D5W - Resolved #Lactic Acidosis, Resolved - Presented with lactic acid of 5.9, improved to 1.2 on 05/22/2024 with fluid resuscitation - Trend lactic acid, ensure normalization - Monitor for signs of end-organ dysfunction - Investigate and treat underlying cause (sepsis, hypoperfusion) #Transaminitis, Improving - AST/ALT elevated on admission to 161/327, improved to 28/44 on 05/24/2024 - Trend liver function tests - Evaluate for underlying liver disease if persistent elevation - Avoid hepatotoxic medications #Volume Overload - Net positive fluid balance of 6L, unclear if output accurately recorded - Administer Lasix dose - Strict intake and output monitoring - Daily weights - Adjust diuretic dosing based on clinical response PDMP PDMP Reviewed: Not Reviewed Attestations 2 Medical Necessity Statement*: requires further hospitalization for management of severe pancreatitis with transaminitis, ABIOLA with metabolic acidosis Coding Level of Care Code Acute Code for Chg Fwd Diagnoses Acute pancreatitis K85.90 Acute kidney injury N17.9 Sepsis A41.9 Transaminitis R74.01 Elevated lactic acid level R79.89 Choledocholithiasis K80.50 Primary hypertension I10 Hypertension type: primary hypertension Hyperlipidemia E78.5 Metabolic acidosis E87.20
[2024-05-25] MEDS: FUROsemide 10 mg/mL SDV 2mL 20 MG IVP (12:35)
[2024-05-25] MEDS: iohexol 350 mg/mL 500 mL Btl (per mL) IV (13:04)
--- NOTE | 2024-05-25 13:34 | P.PN_ITS ---
Subjective 2 Subjective: Patient has been Improving on a daily basis since admission, over the last 24 hours she felt slightly more distended and the white count has trended up. She has significant diarrhea is passing gas abdominal pain is only on the left flank. Vitals/I&O/Wt Last Vital Signs Temp 98.4 F 05/25/24 12:00 Pulse 91 05/25/24 12:00 Resp 19 H 05/25/24 12:00 BP 139/73 05/25/24 12:00 Pulse Ox 92 05/25/24 12:00 O2 Del Method Nasal Cannula 05/25/24 12:00 O2 Flow Rate 1 05/24/24 23:36 05/24/24 05/25/24 05/25/24 22:59 06:59 14:59 Intake Total 460 / 6974.5 1027.5 / 8002.0 930 / 930 Output Total 50 / 50 300 / 350 Balance 410 / 6924.5 727.5 / 7652.0 930 / 930 Weight last 48 hrs Weight 160 lb Weight 153 lb 3.2 oz Physical Exam 2 GI: OTHER: Abdomen is soft nontender minimally distended. Data 05/25/24 04:37 05/25/24 04:37 A&P Assessment and plan (1) Acute pancreatitis: (2) Peripancreatic fluid collection: Plan This is a 74-year-old female with severe pancreatitis, likely due to gallstones. Patient has been showing adequate progression in the last 24 hours there was an uptrend of the white count and she has been more distended. We have decided to obtain a CT scan of the abdomen pelvis with contrast. While radiology reading is pending is quite remarkable for a very large peripancreatic acute fluid collection, there is also ascites and pleural effusion. While peripancreatic fluid collections can initially be managed in a conservative fashion, which will include continue GI rest and IV antibiotics. In the case of continuous worsening of the white count or worsening of patient clinical symptoms patient will require percutaneous drainage of the collection. At the moment she is afebrile is not tachycardic and a trial of conservative therapy could be attempted. I do recommend that we broaden her antibiotic coverage as the uptrend in the white count could represent superimposed infection of this fluid collection. PDMP PDMP Reviewed: Not Reviewed Attestations 2 Medical Necessity Statement*: Per medical team Coding Level of Care Code Acute Code for Chg Fwd Diagnoses Acute pancreatitis K85.90 Peripancreatic fluid collection K86.89
[2024-05-25] MEDS: MEROPENEM 2,000 MG in sodium chloride 0.9% (plus) 50 ML 100 MG IV (17:54)
[2024-05-25] MEDS: lactated ringers 1,000 ML 75 ML IV (17:54)
--- NOTE | 2024-05-25 20:00 | P.PN_ITS ---
Subjective 2 Subjective: Hospital Course 74-year-old female with a past medical history of hypertension, hyperlipidemia, and nephrolithiasis admitted on 05/20/2024 with severe acute pancreatitis, likely biliary in etiology. On admission: - Presented with abdominal pain for 24 hours, associated with nausea and vomiting - Labs notable for leukocytosis, acute kidney injury (creatinine 2.3, baseline 1.0), hyperglycemia, transaminitis, hyperlipasemia, and urinalysis with proteinuria, glucosuria, and hematuria - CT abdomen/pelvis and abdominal ultrasound showed findings consistent with severe pancreatitis, cholelithiasis, and cholecystitis - MRCP confirmed inflammatory changes, gallbladder pathology, and biliary ductal dilation - Treated with IV fluids and broad-spectrum antibiotics (Zosyn) Hospital Day 1-2: - Lactic acidosis improved from 5.9 to 1.2 with fluid resuscitation - Kidney function an with hyd liver enzymes improvingdration - Lipase and procalcitonin trending down - Blood cultures remained negative - Clinically improving, tolerating clear liquid diet Hospital Day 3-4: - Developed hypoxia and respiratory distress with ambulation on 05/22/2024 - Chest x-ray showed left lower lobe pneumonia, pulmonary hyperinflation, and small pleural effusion - Required 3L supplemental oxygen - Sodium increased to 152, managed with D5W - WBC count increasing, trending up to 15.1 on 05/25/2024 - Hemoglobin decreased to 10.1, platelet count to 149 - Net positive fluid balance of 6L Today patient has been having some abdominal pain in upper abdomen, mainly on left side. Intermittent now resolved. Has been tolerating CLD. No fever, chills. No nausea or vomiting. Vitals/I&O/Wt Last Vital Signs Temp 97.7 F 05/25/24 16:00 Pulse 98 05/25/24 16:00 Resp 18 05/25/24 16:00 BP 139/81 05/25/24 16:00 Pulse Ox 94 05/25/24 16:00 O2 Del Method Nasal Cannula 05/25/24 16:00 O2 Flow Rate 2 05/25/24 08:00 05/25/24 05/25/24 05/25/24 06:59 14:59 22:59 Intake Total 1027.5 / 8002.0 980 / 980 50 / 1030 Output Total 300 / 350 Balance 727.5 / 7652.0 980 / 980 50 / 1030 Weight last 48 hrs Weight 72.575 kg Weight 69.49 kg Data 05/25/24 04:37 05/25/24 04:37 Micro: Microbiology 05/20/24 04:01 Blood Culture - Final Blood NO GROWTH AFTER 5 DAYS 05/20/24 04:02 Blood Culture - Final Blood NO GROWTH AFTER 5 DAYS A&P PDMP PDMP Reviewed: Not Reviewed Coding Level of Care Code Acute Code for Chg Fwd
[2024-05-26] VITALS (7 sets, daily range): BP systolic 131–151; BP diastolic 74–88; PULSE 90–105; RESP 14–17; TEMP 36.3–37.1; O2SAT 90–95
[2024-05-26] MEDS: MEROPENEM 2,000 MG in sodium chloride 0.9% (plus) 50 ML 100 MG IV ×2 (01:53→09:20)
[2024-05-26 02:57] LABS: Hematocrit 31.6 % (36-47); Mean Corpuscular HGB Conc 32.6 g/dL (30-55); Mean Corpuscular Hemoglobin 29.9 pg (27-33); Mean Corpuscular Volume 91.9 fl (85-98); Mean Platelet Volume 11.8 fL (7.4-10.4); Platelet Count 152 10^3/cmm (157-399); Red Blood Count 3.44 10^6/uL (3.85-5.65); Red Cell Distribution Width 13.8 % (12.1-15.1); White Blood Count 16.89 10^3/uL (3.29-11.43)
[2024-05-26 03:20] LABS: Alanine Aminotransferase 35 U/L (0-33); Albumin Level 2.2 g/dL (3.5-5.2); Alkaline Phosphatase 162 U/L (35-105); Anion Gap 13.4 (5-19); Aspartate Amino Transferase 34 U/L (0-32); Blood Urea Nitrogen 14 mg/dL (8-23); Calcium 7.6 mg/dL (8.5-10.5); Carbon Dioxide 26 mmol/L (22-29); Chloride 109 mmol/L (98-107); Creatinine Clr Calc Pharmacy 58.4139; Globulin 2.8 g/dL (1.3-4.6); Glucose 230 mg/dL (65-115); Osmolality Calculated 308 mOsm/kg (285-295); Potassium 3.4 mmol/L (3.5-5.1); Sodium 145 mmol/L (136-145); Total Bilirubin 0.5 mg/dL (0.15-1.2)
[2024-05-26 03:29] LABS: Absolute Neutrophil 14.7 10^3/cmm (1.4-6.5); Absolute Segmented Neutrophil 13.5 10/cmm (1.6-7.1); Band Neutrophils Absolute 1.2 10^3/cmm (0.0-1.2); Eosinophils 0 %; Lymphocytes 5 %; Monocytes Absolute 1.2 10^3/cmm (0.1-0.6); Platelet Estimate Normal (Normal); Segmented Neutrophils 80 %; Slide Review Slide Review Perform; Total Cells Counted 100 (0-100)
[2024-05-26] MEDS: heparin 5,000 unit/mL INJ 1 mL 5000 UNIT SUBCUT (05:47)
[2024-05-26] MEDS: pantoprazole 40 mg SDV IVP (05:47)
[2024-05-26] MEDS: lactated ringers 1,000 ML 75 ML IV (09:20)
--- NOTE | 2024-05-26 09:38 | P.PN_ITS ---
Subjective 2 Subjective: Patient endorses having some abdominal fullness and pain but no significant tenderness. Denies fever or chills. Has been made n.p.o. for potential intervention today. Vitals/I&O/Wt Last Vital Signs Temp 97.8 F 05/26/24 07:49 Pulse 90 05/26/24 08:20 Resp 16 05/26/24 07:49 BP 131/77 05/26/24 07:49 Pulse Ox 93 05/26/24 08:20 O2 Del Method Nasal Cannula 05/26/24 08:20 O2 Flow Rate 2 05/26/24 08:20 05/25/24 05/26/24 05/26/24 22:59 06:59 14:59 Intake Total 50 / 1030 50 / 1080 1000 / 1000 Output Total 150 / 150 Balance -100 / 880 50 / 930 1000 / 1000 Weight last 48 hrs Weight 156 lb 8 oz Weight 160 lb Physical Exam 2 GI: OTHER: Abdominal examination remains stable abdomen is slightly distended, is soft and minimally tender. Data 05/26/24 02:25 05/26/24 02:25 Micro: Microbiology 05/20/24 04:01 Blood Culture - Final Blood NO GROWTH AFTER 5 DAYS 05/20/24 04:02 Blood Culture - Final Blood NO GROWTH AFTER 5 DAYS A&P Assessment and plan (1) Peripancreatic fluid collection: (2) Pancreatic necrosis: Plan 74-year-old female with severe acute pancreatitis, now with imaging confirmation of pancreatic necrosis and peripancreatic fluid collection. Her white count has continued to trended up today although her vital signs are stable. At this point and after discussion with medical team decision was made to transfer the patient to higher level of care at a tertiary center due to complexity of current pathology. She has been accepted and will be transferred to [place]. In my clinical opinion patient will most likely require step up approach to her acute pancreatitis since her white count is still trending up despite good conservative management. This may include an initial transgastric or percutaneous drainage of her peripancreatic fluid collection that may be needed to be followed by endoscopic necrosectomy in case of clinical worsening. I do agree that at this point she will be better served in a tertiary facility where these procedures can be performed. Patient is agreeable with the plan. PDMP PDMP Reviewed: Not Reviewed Attestations 2 Medical Necessity Statement*: per medical team Coding Level of Care Code 72122 Diagnoses Peripancreatic fluid collection K86.89 Pancreatic necrosis K86.89
--- NOTE | 2024-05-26 12:11 | P.PN_ITS ---
Subjective 2 Subjective: Hospital Course 74-year-old female with a past medical history of hypertension, hyperlipidemia, and nephrolithiasis admitted on 05/20/2024 with severe acute pancreatitis, likely biliary in etiology. On admission: - Presented with abdominal pain for 24 hours, associated with nausea and vomiting - Labs notable for leukocytosis, acute kidney injury (creatinine 2.3, baseline 1.0), hyperglycemia, transaminitis, hyperlipasemia, and urinalysis with proteinuria, glucosuria, and hematuria - CT abdomen/pelvis and abdominal ultrasound showed findings consistent with severe pancreatitis, cholelithiasis, and cholecystitis - MRCP confirmed inflammatory changes, gallbladder pathology, and biliary ductal dilation - Treated with IV fluids and broad-spectrum antibiotics (Zosyn) Hospital Day 1-2: - Lactic acidosis improved from 5.9 to 1.2 with fluid resuscitation - Kidney function an with hyd liver enzymes improvingdration - Lipase and procalcitonin trending down - Blood cultures remained negative - Clinically improving, tolerating clear liquid diet Hospital Day 3-4: - Developed hypoxia and respiratory distress with ambulation on 05/22/2024 - Chest x-ray showed left lower lobe pneumonia, pulmonary hyperinflation, and small pleural effusion - Required 3L supplemental oxygen - Sodium increased to 152, managed with D5W - WBC count increasing, trending up to 15.1 on 05/25/2024 - Hemoglobin decreased to 10.1, platelet count to 149 - Net positive fluid balance of 6L Today patient has been having some abdominal pain in upper abdomen, mainly on left side. Intermittent now resolved. Has been tolerating CLD. No fever, chills. No nausea or vomiting. 05/26 Noted increase frequency of abdominal pain in similar area as prior. No fever however increasing leukocytosis Vitals/I&O/Wt Last Vital Signs Temp 97.3 F L 05/26/24 11:29 Pulse 95 05/26/24 11:29 Resp 14 05/26/24 11:29 BP 138/74 05/26/24 11:29 Pulse Ox 95 05/26/24 11:29 O2 Del Method Nasal Cannula 05/26/24 11:29 O2 Flow Rate 2 05/26/24 08:20 05/25/24 05/26/24 05/26/24 22:59 06:59 14:59 Intake Total 50 / 1030 50 / 1080 1050 / 1050 Output Total 150 / 150 Balance -100 / 880 50 / 930 1050 / 1050 Weight last 48 hrs Weight 70.987 kg Weight 72.575 kg Physical Exam 2 Narrative: General: No acute distress, AO x3, dehydrated HEENT: PERRLA, pupils bilaterally equal and reactive Chest: Normal vesicular breath sounds, no added sounds, equal good air entry bilaterally CVS: S1-S2 regular, no murmurs, no tachycardia, no gallops, no rubs Abdomen: Tenderness present in right upper quadrant and epigastric region, bowel sounds sluggish, distended Neuro: No focal deficits, no facial deformity, AO x3, power 5/5 in all limbs Data 05/26/24 02:25 05/26/24 02:25 Micro: Microbiology 05/20/24 04:01 Blood Culture - Final Blood NO GROWTH AFTER 5 DAYS 05/20/24 04:02 Blood Culture - Final Blood NO GROWTH AFTER 5 DAYS A&P Assessment and plan (1) Acute pancreatitis: (2) Acute kidney injury: (3) Sepsis: (4) Transaminitis: (5) Elevated lactic acid level: (6) Choledocholithiasis: (7) Hypertension: Qualifiers: Hypertension type: primary hypertension Qualified Code(s): I10 - Essential (primary) hypertension (8) Hyperlipidemia: (9) Metabolic acidosis: Plan #Severe Acute Pancreatitis, Likely Biliary - Severe pancreatitis, likely gallstone-related given imaging findings of cholelithiasis and biliary ductal dilation - General surgery consulted, recommended broad-spectrum antibiotics and outpatient cholecystectomy once inflammation resolves initially. - Repeat CT abd/pelvis on showed: 1. Findings consistent with focal pancreatic necrosis. Large fluid collection in the lesser sac with probable reactive wall thickening of the posterior stomach. 2. Moderate ascites in the abdomen and pelvis which is increased. 3. Dilatation of the extrahepatic bile duct. 4. Wall thickening of small bowel and colon relatively diffusely. This may be reactive in the setting of potential peritonitis from acute pancreatitis. However enteritis and colitis of an infectious nature are not excluded. Focal dilatation of a proximal jejunal loop. 5. Bilateral pleural effusions and pulmonary consolidation, [id number]. Plan: Discussed with hepatobiliary GI team at [facility]- Accepted patient for transfer Discussed with hospitalist as well. Remain NPO Zosyn changed to meropenum Increasing leukocytosis Will need IR consult as well for possible drainage. Fluid analysis/culture #Sepsis due to above, possible pneumonia - Sepsis on admission, possibly due to pancreatitis vs pneumonia - Blood cultures negative, procalcitonin downtrending - Now with increasing WBC count to 15.1,-> 16 today concerning for ongoing/worsening infection - Abx changed to above. ( erick) #Acute Hypoxic Respiratory Failure - Developed hypoxia and respiratory distress with ambulation on 05/22/2024 - Chest x-ray with left lower lobe pneumonia, pulmonary hyperinflation, small pleural effusion. Initial CT did show severe bronchectasis - Requiring 3L supplemental oxygen - Provide oxygen to maintain saturation >92% - Encourage incentive spirometry, ambulation - Treat pneumonia with antibiotics, closely monitor respiratory status - Consider pulmonary function tests if persistent hypoxia or concern for chronic lung disease #Acute Kidney Injury, Resolved - Presented with creatinine 2.3 (baseline 1.0), improved to 0.9 with IV fluids by 05/22/2024 - Continue to monitor renal function, maintain adequate hydration - Avoid nephrotoxic medications #Hypernatremia- Resolved - Sodium increased to 152 on 05/23/2024, improved to 143 with D5W - Resolved #Lactic Acidosis, Resolved - Presented with lactic acid of 5.9, improved to 1.2 on 05/22/2024 with fluid resuscitation - Trend lactic acid, ensure normalization - Monitor for signs of end-organ dysfunction - Investigate and treat underlying cause (sepsis, hypoperfusion) #Transaminitis, Improving - AST/ALT elevated on admission to 161/327, improved to 28/44 on 05/24/2024 - Trend liver function tests - Evaluate for underlying liver disease if persistent elevation - Avoid hepatotoxic medications #Volume Overload - Net positive fluid balance of 19L since admission, up 7kg - Lasix dose was given on 12th, will give additional dose if not transferred to slu today - Strict intake and output monitoring - Daily weights # DVT prophylaxis - Heparin 5000 units Q12h Disposition: - Pending transfer to [facility]. PDMP PDMP Reviewed: Not Reviewed Attestations 2 Medical Necessity Statement*: per medical team Coding Level of Care Code Acute Code for g Fwd Diagnoses Acute pancreatitis K85.90 Acute kidney injury N17.9 Sepsis A41.9 Transaminitis R74.01 Elevated lactic acid level R79.89 Choledocholithiasis K80.50 Primary hypertension I10 Hypertension type: primary hypertension Hyperlipidemia E78.5 Metabolic acidosis E87.20
--- NOTE | 2024-06-01 13:57 | P.TS_ITS ---
Transfer Summary Providers Date of Admission: 05/20/24 13:15 Date of Discharge/Transfer: 05/26/24 Attending Provider at Admission: Winston Valverde MD Attending Provider at Transfer: King Turcios Consults: General Surgeyr Primary Care Provider: Aby Herndon NP Transfer Plans: Anticipated date of transfer: 05/26/24 . Receiving Facility: [facility] . Receiving Provider: Sabrina . Additional transfer facility information: Admission to hospitalist team . Diagnoses at Discharge Discharge Diagnosis (1) Acute pancreatitis: Status: Acute (2) Acute kidney injury: Status: Acute (3) Sepsis: Status: Acute (4) Transaminitis: Status: Acute (5) Elevated lactic acid level: Status: Acute (6) Choledocholithiasis: Status: Acute (7) Hypertension: Status: Inactive Qualifiers: Hypertension type: primary hypertension Qualified Code(s): I10 - Essential (primary) hypertension (8) Hyperlipidemia: Status: Inactive (9) Metabolic acidosis: Status: Acute Reason for Visit Reason for Visit ABD Pain Hospital Course Hospital Course Diagnoses: 1. Severe acute pancreatitis, likely biliary 2. Sepsis, unclear source (intra-abdominal vs. pneumonia) 3. Acute hypoxic respiratory failure 4. Left lower lobe pneumonia 5. Acute kidney injury (resolved) 6. Hypernatremia (improving) 7. Lactic acidosis (resolved) 8. Transaminitis (improving) 9. Volume overload Hospital Course: Patient presented to the ER on 05/20/2024 with a 24-hour history of abdominal pain, nausea, and vomiting. Initial labs were significant for leukocytosis (WBC 12.6), acute kidney injury (creatinine 2.3, baseline 1.0 in March 2024), hyperglycemia (glucose 366), transaminitis (AST 161, ALT 327), and elevated lipase (2703), concerning for pancreatitis. Initial CT abdomen/pelvis showed findings consistent with severe pancreatitis, peripancreatic fluid, cholelithiasis, and sludge within the gallbladder. The lungs showed extensive bronchiectasis and chronic inflammatory changes. An abdominal ultrasound confirmed cholecystitis with mild gallbladder wall thickening, common bile duct dilation (1 cm), and small upper abdominal ascites. An MRCP showed progressive abdominal fluid and an inflammatory appearance of the gallbladder with wall thickening, sludge, and small gallstones, but no filling defects in the central duct. Patient was started on IV fluids and broad-spectrum antibiotics (Zosyn). Lactic acid, which was elevated on admission (5.9), improved to 1.2 on 05/22/2024 and normalized thereafter. Kidney function also improved with IV fluids (creatinine 0.9 on 05/22/2024). Liver function tests improved (AST 28, ALT 44, alkaline phosphatase 104 by 05/24/2024). Lipase also downtrended to 64 by 05/24/2024. Procalcitonin, initially 0.61, increased to 1.42 on 05/21/2024, but then downtrended to 0.45 by 05/23/2024. Sodium increased to 152 on 05/23/2024 and IV fluids were changed to D5W, with improvement to 143 on 05/25/2024. Blood cultures remained negative throughout hospitalization. Patient clinically improved over the next two days and was advanced to a clear liquid diet. However, on 05/22/2024, Patient was noted to be hypoxic and in respiratory distress with ambulation. Chest x-ray revealed left lower lobe pneumonia with a small paranomic effusion, pulmonary hyperinflation, and mild cardiomegaly. Patient required 3L of oxygen via nasal cannula. Patient's WBC, which had initially downtrended, has increased to 15.1 as of 05/25/2024. Hemoglobin is 10.1, hematocrit is 30.7, and platelets have decreased to 149. Repeat CT abdomen/pelvis on 05/25/2024 showed findings consistent with focal pancreatic necrosis, a large fluid collection in the lesser sac with probable reactive wall thickening of the posterior stomach, moderate ascites (increased compared to prior), dilatation of the extrahepatic bile duct, and diffuse wall thickening of the small bowel and colon, possibly reactive but concerning for infectious etiology. Bilateral pleural effusions and pulmonary consolidation (left > right) were also noted. Given increase in WBC count and also increasing abdominal pain and distention with new findings on CT she was transferred to [facility] GI team. Current Status: - NPO - Increasing leukocytosis (WBC 15.1 as of 05/25/2024) - Requiring 3L O2 via nasal cannula - Net positive fluid balance of 6L (accuracy of output monitoring uncertain) Medications: - Zosyn 3.375g IV q8h (started 05/20/2024) - Protonix 40mg PO q12h - Heparin 5000 units SQ q12h - Zosyn transitioned to Meropenem Plan: 1. Transfer to [facility] accepted by hepatobiliary GI team. Discussed with hospitalist. 2. IR consult for possible drainage and fluid analysis/culture. 3. Continue broad-spectrum antibiotics (Meropenem). 4. Monitor respiratory status and oxygenation. 5. Strict fluid management, including Lasix administration. 6. Outpatient laparoscopic cholecystectomy once inflammation resolves (recommended by general surgery). Physical Exam Narrative: General: No acute distress, AO x3, dehydrated HEENT: PERRLA, pupils bilaterally equal and reactive Chest: Normal vesicular breath sounds, no added sounds, equal good air entry bilaterally CVS: S1-S2 regular, no murmurs, no tachycardia, no gallops, no rubs Abdomen: Tenderness present in right upper quadrant and epigastric region, bowel sounds sluggish, distended Neuro: No focal deficits, no facial deformity, AO x3, power 5/5 in all limbs TS Data Studies Completed and Pending Completed Studies During Hospitalization Category Date Time Status CT abdomen pelvis w con* [id number] Routine Cat Scan 05/25/24 12:[address] abdomen renal stone [CT kidney stone [id number]] Stat Cat Scan 05/19/24 23:25 Completed XR chest 1V portable [id number] Routine Exams 05/22/24 11:54 Completed MR MRCP [id number] Stat MRI 05/20/24 06:20 Completed US abdomen limited [id number] Stat Ultrasound 05/20/24 05:06 Completed Laboratory Last Values WBC 16.89 10^3/uL (3.29-11.43) H 05/26/24 02:25 RBC 3.44 10^6/uL (3.85-5.65) L 05/26/24 02:25 Hgb 10.30 g/dL (11.27-16.99) L 05/26/24 02:25 Hct 31.6 % (36-47) L 05/26/24 02:25 MCV 91.9 fl (85-98) 05/26/24 02:25 MCH 29.9 pg (27-33) 05/26/24 02:25 MCHC 32.6 g/dL (30-55) 05/26/24 02:25 RDW 13.8 % (12.1-15.1) 05/26/24 02:25 Plt Count 152 10^3/cmm (157-399) L 05/26/24 02:25 MPV 11.8 fL (7.4-10.4) H 05/26/24 02:25 Neut % (Auto) 84.2 % 05/25/24 04:37 Lymph % (Auto) Not Reportable 05/26/24 02:25 Andrew % (Auto) Not Reportable 05/26/24 02:25 Eos % (Auto) 0.4 % 05/25/24 04:37 Baso % (Auto) 0.9 % 05/25/24 04:37 Neut # (Auto) 12.77 10^3/uL (1.8-7.7) H 05/25/24 04:37 Lymph # (Auto) Not Reportable 05/26/24 02:25 Andrew # (Auto) Not Reportable 05/26/24 02:25 Eos # (Auto) 0.1 10^3/uL (0.0-0.8) 05/25/24 04:37 Baso # (Auto) 0.1 10^3/uL (0.0-0.1) 05/25/24 04:37 Nucleated RBC % (auto) 0.2 % 05/25/24 04:37 Total Counted 100 (0-100) 05/26/24 02:25 Atypical Lymphs % Not Reportable 05/26/24 02:25 Absolute Neutrophils 14.7 10^3/cmm (1.4-6.5) H 05/26/24 02:25 Segmented Neutrophils 80 % 05/26/24 02:25 Band Neutrophils 7.0 % 05/26/24 02:25 Lymphocytes (Manual) 5 % 05/26/24 02:25 Monocytes (Manual) 7.0 % 05/26/24 02:25 Absolute Monocytes 1.2 10^3/cmm (0.1-0.6) H 05/26/24 02:25 Eosinophils (Manual) 0 % 05/26/24 02:25 Absolute Eosinophils 0.0 10^3/cmm (0.0-0.7) 05/26/24 02:25 Basophils (Manual) 0.0 % 05/26/24 02:25 Absolute Basophils 0.0 10^3/cmm (0.0-0.2) 05/26/24 02:25 Metamyelocytes 1.0 % 05/26/24 02:25 Myelocytes 1.0 % 05/23/24 04:19 Nucleated RBCs # 0.0 /100WBC 05/25/24 04:37 Platelet Estimate Normal (Normal) 05/26/24 02:25 Specimen Type Arterial 05/20/24 17:42 Sample Site Radial, right 05/20/24 17:42 ABG pH 7.38 (7.35-7.45) 05/20/24 17:42 ABG pCO2 32.6 mmHg (35-45) L 05/20/24 17:42 ABG pO2 55.4 mmHg (80.0-100.0) L 05/20/24 17:42 ABG PO2/FiO2 Ratio 263 05/20/24 17:42 ABG HCO3 19.2 mmol/L (22-26) L 05/20/24 17:42 ABG O2 Saturation 91.4 05/20/24 17:42 ABG Base Excess -4.9 mmol/L (-2.0-2.0) L 05/20/24 17:42 Kenn Test Pos 05/20/24 17:42 A-a O2 Gradient 7.0 mmHg (5-10) 05/20/24 17:42 Hematocrit 48.5 % (37-47) H 05/20/24 17:42 Hgb O2 Saturation 89.9 % (95-100) L 05/20/24 17:42 Carboxyhemoglobin 1.3 %THgb (0.4-20.1) 05/20/24 17:42 Methemoglobin 0.3 % (0.4-1.5) L 05/20/24 17:42 Total Hemoglobin 15.8 g/dL (12-16) 05/20/24 17:42 Sodium 136.0 mmol/L (131-143) 05/20/24 17:42 Potassium 4.8 mmol/L (3.5-5.0) 05/20/24 17:42 Glucose 242.0 mg/dL (70-115) H 05/20/24 17:42 Ionized Calcium 1.0 mmol/L (1.1-1.4) L 05/20/24 17:42 O2 Delivery Device Room air 05/20/24 17:42 FiO2 21.0 % 05/20/24 17:42 Dry Talc Racker ID Ah 05/20/24 17:42 Sodium 145 mmol/L (136-145) 05/26/24 02:25 Potassium 3.4 mmol/L (3.5-5.1) L 05/26/24 02:25 Chloride 109 mmol/L (98-107) H 05/26/24 02:25 Carbon Dioxide 26 mmol/L (22-29) 05/26/24 02:25 Anion Gap 13.4 (5-19) 05/26/24 02:25 BUN 14 mg/dL (8-23) 05/26/24 02:25 Creatinine 0.8 mg/dL (0.5-0.9) 05/26/24 02:25 GFR Calculation Not Reportable 05/26/24 02:25 Glucose 230 mg/dL (65-115) H 05/26/24 02:25 Estimat Average Glucose 128 05/20/24 15:41 Hemoglobin A1c 6.1 % (4.0-6.0) H 05/20/24 15:41 Calculated Osmolality 308 mOsm/kg (285-295) H 05/26/24 02:25 Lactic Acid 1.2 mmol/L (0.5-2.2) 05/22/24 02:48 Lactic Acid (Sepsis) 4.0 mmol/L (0.5-2.2) H 05/20/24 05:00 Calcium 7.6 mg/dL (8.5-10.5) L 05/26/24 02:25 Phosphorus 1.8 mg/dL (2.5-4.5) L 05/23/24 04:19 Magnesium 2.7 mg/dL (1.7-2.3) H 05/23/24 04:19 Iron 28 ug/dL (37-145) L 05/20/24 00:00 TIBC 266 mcg/dl 05/20/24 00:00 % Saturation 10.5 % (20-50) L 05/20/24 00:00 Unsat Iron Binding 238 ug/dL (112-347) 05/20/24 00:00 Total Bilirubin 0.5 mg/dL (0.15-1.2) 05/26/24 02:25 AST 34 U/L (0-32) H 05/26/24 02:25 ALT 35 U/L (0-33) H 05/26/24 02:25 Alkaline Phosphatase 162 U/L (35-105) H 05/26/24 02:25 Total Protein 5.0 g/dL (6.6-8.7) L 05/26/24 02:25 Albumin 2.2 g/dL (3.5-5.2) L 05/26/24 02:25 Globulin 2.8 g/dL (1.3-4.6) 05/26/24 02:25 Triglycerides 118 mg/dL (0-150) 05/20/24 00:00 Lipase 64 U/L (13-60) H 05/24/24 07:31 Vitamin B12 1452 pg/mL (232-1245) H 05/20/24 00:00 Folate 15.2 ng/mL (4.8-37.3) 05/21/24 03:21 Procalcitonin 0.45 ng/mL (0-0.5) 05/23/24 04:19 TSH 1.21 uIU/mL (0.27-4.20) 05/20/24 00:00 Urine Color Dark yellow (Yellow) A 05/20/24 04:17 Urine Appearance Cloudy (CLEAR) A 05/20/24 04:17 Urine pH 5.0 (5-7) 05/20/24 04:17 Ur Specific [place] 1.020 (1.005-1.030) 05/20/24 04:17 Urine Protein 2+ (Negative) A 05/20/24 04:17 Urine Glucose (UA) 2+ (Normal) H 05/20/24 04:17 Urine Ketones Trace (Negative) 05/20/24 04:17 Urine Blood 1+ (Negative) A 05/20/24 04:17 Urine Nitrate Negative (Negative) 05/20/24 04:17 Urine Bilirubin Negative (Negative) 05/20/24 04:17 Urine Urobilinogen 1.0 mg/dL (Negative) 05/20/24 04:17 Ur Leukocyte Esterase Negative (Negative) 05/20/24 04:17 Urine RBC 0-2 /hpf (0-2) 05/20/24 04:17 Urine WBC 0-5 /hpf (0-5) 05/20/24 04:17 Ur Squamous Epith Cells 11-20 /hpf (0-5) H 05/20/24 04:17 Amorphous Sediment Not Reportable 05/20/24 04:17 Urine Bacteria Trace /hpf (NONE) 05/20/24 04:17 Hyaline Casts 44.66 /lpf 05/20/24 04:17 C. difficile (PCR) Negative (Negative) 05/24/24 16:20 Radiology Impressions Abdomen Ultrasound 05/20/24 05:06 IMPRESSION: 1. Cholelithiasis and mild gallbladder wall thickening, likely reactive. 2. Common bile duct dilatation to approximately 1 cm. Correlate with LFTs and, if clinically indicated, ERCP or MRCP. 3. Small upper abdominal ascites. 4. Echogenic right kidney, suggesting medical renal disease. 5. Additional findings, as above. Cholangiopancreatography MRI 05/20/24 06:20 IMPRESSION: 1. There is some progressive abdominal fluid, inflammatory appearance overall with the clinically provided history provided of pancreatitis. 2. The gallbladder is patulous with some associated wall thickening and layering sludge, small gallstones. Some superimposed early inflammation could also present in this fashion. 3. There is some central ductal dilatation although no persistent filling defects are currently appreciated. Distal, ampullary level evaluation is however somewhat limited. Overall, consider pancreatic and hepatobiliary laboratory profile studies to evaluate for interval progression. If there is persistent clinical concern for partial obstructive or clinical jaundice type changes then consider direct visualization with ERCP when clinically feasible. Chest X-Ray 05/22/24 11:54 IMPRESSION: 1. Pulmonary hypoinflation. 2. Left lower lobe pneumonia and small associated parapneumonic effusion. Short-term radiographic follow-up is recommended to ensure complete resolution and exclude the possibility of underlying malignancy. 3. Probable subsegmental atelectasis versus 2nd area of infiltrate at the right lung base. 4. Mild cardiomegaly. Abdomen/Pelvis CT 05/25/24 12:05 IMPRESSION: 1. Findings consistent with focal pancreatic necrosis. Large fluid collection in the lesser sac with probable reactive wall thickening of the posterior stomach. 2. Moderate ascites in the abdomen and pelvis which is increased. 3. Dilatation of the extrahepatic bile duct. 4. Wall thickening of small bowel and colon relatively diffusely. This may be reactive in the setting of potential peritonitis from acute pancreatitis. However enteritis and colitis of an infectious nature are not excluded. Focal dilatation of a proximal jejunal loop. 5. Bilateral pleural effusions and pulmonary consolidation, [id number]-xphk-right. COMMENTS: Consistent with the [employer]'s Incidental Findings Committee white paper (J Am Catalina Radiol 2018): Any incidental renal lesion less than 1 cm or classified as too small to characterize, or any incidental cystic renal lesion characterized as simple-appearing, is likely benign. No follow-up imaging is recommended for these lesions per consensus recommendations based on imaging criteria. Recent Clincial Data Last Vital Signs Temp 98.1 F 05/26/24 15:39 Pulse 105 H 05/26/24 18:04 Resp 17 05/26/24 15:39 BP 151/88 05/26/24 18:04 Pulse Ox 90 05/26/24 18:04 O2 Del Method Nasal Cannula 05/26/24 15:39 O2 Flow Rate 2 05/26/24 15:39 Vitals Last Vital Signs Temp 98.1 F 05/26/24 15:39 Pulse 105 H 05/26/24 18:04 Resp 17 05/26/24 15:39 BP 151/88 05/26/24 18:04 Pulse Ox 90 05/26/24 18:04 O2 Del Method Nasal Cannula 05/26/24 15:39 O2 Flow Rate 2 05/26/24 15:39 TS Medications Medications Discontinued Medications Acetaminophen (Acetaminophen 325 Mg Tablet) 650 mg PO Q6H PRN PRN Reason: Mild/Mod Pain Or Temp >/= 101 Albuterol/Ipratropium (Ipratropium-Albuterol 3 Ml Neb) 3 ml INHALATION Q6H.RESP HERB Docusate Sodium (Docusate Sodium 100 Mg Capsule) 100 mg PO BID PENDING SALE TO [facility] Last Admin: 05/22/24 16:46 Dose: 100 mg Furosemide (Furosemide 10 Mg/Ml Sdv 2ml) 20 mg IVP ONCE ONE Stop: 05/25/24 12:04 Last Admin: 05/25/24 12:35 Dose: 20 mg Heparin Sodium (Porcine) (Heparin 5,000 Unit/Ml Inj 1 Ml) 5,000 unit SUBCUT Q12H HERB Last Admin: 05/20/24 15:26 Dose: Not Given Heparin Sodium (Porcine) (Heparin 5,000 Unit/Ml Inj 1 Ml) 5,000 unit SUBCUT Q12H PENDING SALE TO [facility] Last Admin: 05/26/24 05:47 Dose: 5,000 unit Sodium Chloride (Sodium Chloride 0.9%) 1,000 mls @ 999 mls/hr IV .Q1H1M ONE Stop: 05/20/24 03:39 Last Infusion: 05/20/24 13:26 Dose: Infused Sodium Chloride (Sodium Chloride 0.9%) 1,641 mls @ 1,641 mls/hr 30 ml/kg infuse over 1 hr (1641 ml) IV .Q1H ONE Stop: 05/20/24 04:12 Last Infusion: 05/20/24 13:26 Dose: Infused Piperacillin Sod/Tazobactam (Sod 3.375 gm/ Sodium Chloride) 50 mls @ 100 mls/hr IV ONCE ONE; Protocol Stop: 05/20/24 03:42 Last Infusion: 05/20/24 13:26 Dose: Infused Sodium Chloride (Sodium Chloride 0.9%) 1,000 mls @ 100 mls/hr IV .Q10H HERB Last Infusion: 05/23/24 10:27 Dose: Infused Sodium Chloride (Sodium Chloride 0.9%) 1,000 mls @ 999 mls/hr IV .Q1H1M ONE Stop: 05/20/24 11:12 Last Infusion: 05/20/24 11:39 Dose: Infused Sodium Chloride (Sodium Chloride 0.9%) 1,000 mls @ 100 mls/hr IV .Q10H HERB Last Admin: 05/20/24 13:26 Dose: Not Given Piperacillin Sod/Tazobactam (Sod 3.375 gm/ Sodium Chloride) 50 mls @ 12.5 mls/hr IV Q8H HERB; Protocol Last Infusion: 05/25/24 13:37 Dose: Infused Dextrose/Sodium Chloride (Dextrose 5%-Sod Chloride 0.45%) 1,000 mls @ 50 mls/hr IV .Q20H HERB Last Infusion: 05/25/24 12:56 Dose: Infused Meropenem 2,000 mg/ Sodium (Chloride) 50 mls @ 100 mls/hr IV Q8H HERB; Protocol Last Infusion: 05/26/24 09:55 Dose: Infused Lactated Ringer's (Lactated Ringers) 1,000 mls @ 50 mls/hr IV .Q20H HERB Last Admin: 05/26/24 09:20 Dose: 75 mls/hr Iohexol (Iohexol 350 Mg/Ml 500 Ml Btl (Per Ml)) 0 ml IV ONCE ONE Stop: 05/25/24 13:04 Last Admin: 05/25/24 13:04 Dose: 100 ml Lactulose (Lactulose Oral Liq 20 Gm/30 Ml Udc) 10 gm PO DAILY PRN; Protocol PRN Reason: Constipation (see protocol) Magnesium Hydroxide (Magnesium Hydroxide 30 Ml Udc) 30 ml PO DAILY PRN; Protocol PRN Reason: Constipation (see protocol) Morphine Sulfate (Morphine 4 Mg/Ml Sdv 1 Ml) 4 mg IVP ONCE ONE Stop: 05/20/24 02:40 Last Admin: 05/20/24 02:47 Dose: 4 mg Morphine Sulfate (Morphine 4 Mg/Ml Sdv 1 Ml) 2 mg IVP Q4H PRN PRN Reason: SEVERE PAIN Last Admin: 05/21/24 06:38 Dose: 2 mg Ondansetron HCl (Ondansetron 2 Mg/Ml Sdv 2 Ml) 4 mg IVP ONCE ONE Stop: 05/20/24 02:40 Last Admin: 05/20/24 02:47 Dose: 4 mg Ondansetron HCl (Ondansetron 2 Mg/Ml Sdv 2 Ml) 4 mg IVP Q6H PRN PRN Reason: vomiting, or N/V if npo Last Admin: 05/23/24 06:11 Dose: 4 mg Pantoprazole Sodium (Pantoprazole 40 Mg Sdv) 40 mg IVP Q12H HERB Last Admin: 05/26/24 05:47 Dose: 40 mg Allergies No Known Allergies Allergy (Verified 05/19/24 23:10) Home Medications aspirin 81 mg tablet,delayed release (Adult Low Dose Aspirin) 81 mg PO DAILY 03/23/22 [History Confirmed 05/20/24] mecobalamin (vitamin B12) 1,000 mcg disintegrating tablet,sublingual 1,000 mcg sublingual DAILY 04/02/23 [History Confirmed 05/20/24] lisinopril 20 mg tablet 20 mg PO DAILY #90 tabs 12/01/23 [Rx Confirmed 05/20/24] krill oil 500 mg capsule 500 mg PO DAILY 03/31/24 [History Confirmed 05/20/24] multivitamin 1 tab PO DAILY 03/31/24 [History Confirmed 05/20/24] Discharge Plan Discharge Patient Disposition: Xfer Other Condition: Stable Prescriptions: Discontinued aspirin [Adult Low Dose Aspirin] 81 mg tablet,delayed release (DR/EC) 81 mg PO DAILY mecobalamin (vitamin B12) 1,000 mcg tablet,disintegrating 1,000 mcg sublingual DAILY Rx Instructions: place tablet under tongue and allow to dissolve for at least30 secs before swallowing krill oil 500 mg capsule 500 mg PO DAILY multivitamin Tablet 1 tab PO DAILY lisinopril 20 mg tablet 20 mg PO DAILY Qty: 90 3RF Discharge Orders: Discharge Order (Routine); Ordered 05/26/24 Ordered By: King Turcios Referrals: Valerio Hollis MD [Physician] - (outpatient [facility] ) Aby Herndon NP [Primary Care Provider] - Patient Instructions: Opioid Safety Transfer Attestations Time Spent in Transfer Care: greater than 30 min Quality Metrics Clinical Quality Measures [ No reported AMI, CVA or VTE this stay] Coding Level of Care Code Acute Code for Chg Fwd Diagnoses Acute pancreatitis K85.90 Acute kidney injury N17.9 Sepsis A41.9 Transaminitis R74.01 Elevated lactic acid level R79.89 Choledocholithiasis K80.50 Primary hypertension I10 Hypertension type: primary hypertension Hyperlipidemia E78.5 Metabolic acidosis E87.20
== END 2024-05-26 16:55 | disposition short-term general hospital (02) | DRG 871 ==
LOC: ER 05-20 11:01 → MEDSURG 05-20 16:19
PROVIDERS: Emergency Medicine; Admitting Provider Student in an Organized Health Care Education/Training Program; Emergency Provider Family Medicine; PCP Nurse Practitioner Family; Visit Provider Hospitalist
DX: A41.9 Sepsis, unspecified organism (principal); J18.9 Pneumonia, unspecified organism; K85.11 Biliary acute pancreatitis with uninfected necrosis; J96.01 Acute respiratory failure with hypoxia; N17.9 Acute kidney failure, unspecified; E87.20 Acidosis, unspecified; K80.40 Calculus of bile duct with cholecystitis, unspecified, without obstruction; E87.0 Hyperosmolality and hypernatremia; R18.8 Other ascites; J90 Pleural effusion, not elsewhere classified; I10 Essential (primary) hypertension; E78.5 Hyperlipidemia, unspecified; E87.70 Fluid overload, unspecified; J47.9 Bronchiectasis, uncomplicated; K83.8 Other specified diseases of biliary tract; Z79.82 Long term (current) use of aspirin; Z87.442 Personal history of urinary calculi; E86.0 Dehydration
CPT/HCPCS: 36415; 36600; 71045; 74176; 74177; 74181; 76705; 80048; 80051; 80053; 81001; 82330; 82607; 82746; 82805; 83036; 83540; 83550; 83605; 83690; 83735; 84100; 84145; 84443; 84478; 85007; 85025; 87040; 87493; 94664; 94762; 96365; 96372; 96375; 99285; J1644; J1940; J2185; J2270; J2405; J2470; J2543; J7030; J7120; J7799; J9999

== ENCOUNTER 2024-07-31 15:01 | Emergency (ER) | payer MEDICARE, SELFPAY ==
[2024-07-31 15:07] VITALS: PULSE 99; TEMP 36.4; O2SAT 97
[2024-07-31 15:45] LABS: Basophils # 0.1 10^3/uL (0.0-0.1); Basophils % 0.4 %; Eosinophils # 0.1 10^3/uL (0.0-0.8); Eosinophils % 0.7 %; Hematocrit 35.3 % (36-47); Lymphocytes # 1.7 10^3/uL (0.8-4.8); Lymphocytes % 15.1 %; Mean Corpuscular HGB Conc 31.7 g/dL (30-55); Mean Corpuscular Hemoglobin 28.4 pg (27-33); Mean Corpuscular Volume 89.4 fl (85-98); Mean Platelet Volume 11.5 fL (7.4-10.4); Monocytes # 0.9 10^3/uL (0.2-0.9); Monocytes % 7.9 %; Neutrophils # 8.53 10^3/uL (1.8-7.7); Neutrophils % 75.5 %; Nucleated Red Blood Cells % 0 %; Platelet Count 479 10^3/cmm (157-399); Red Blood Count 3.95 10^6/uL (3.85-5.65); Red Cell Distribution Width 14.8 % (12.1-15.1)
[2024-07-31 16:00] LABS: Alanine Aminotransferase 10 U/L (0-33); Albumin Level 3.4 g/dL (3.5-5.2); Alkaline Phosphatase 145 U/L (35-105); Anion Gap 20.5 (5-19); Aspartate Amino Transferase 13 U/L (0-32); Blood Urea Nitrogen 32 mg/dL (8-23); Carbon Dioxide 27 mmol/L (22-29); Chloride 94 mmol/L (98-107); Creatinine Clr Calc Pharmacy 42.8391; Globulin 3.9 g/dL (1.3-4.6); Glucose 353 mg/dL (65-115); Lipase 129 U/L (13-60); Osmolality Calculated 305 mOsm/kg (285-295); Potassium 4.5 mmol/L (3.5-5.1); Sodium 137 mmol/L (136-145); Total Bilirubin 0.4 mg/dL (0.15-1.2); Total Protein 7.3 g/dL (6.6-8.7)
--- NOTE | 2024-07-31 17:00 | CTR_ITS ---
PROCEDURE INFORMATION: Exam: CT Abdomen And Pelvis With Contrast Exam date and time: 07/31/2024 6:22 PM Age: 74 years old Clinical indication: Abdominal pain; Generalized; Prior surgery; Surgery date: 1-6 months; Surgery type: Pancreatic drain x2, last one placed 5-6 wks ago. Feeding tube; Additional info: Vomiting TECHNIQUE: Imaging protocol: Computed tomography of the abdomen and pelvis with contrast. Radiation optimization: All CT scans at this facility use at least one of these dose optimization techniques: automated exposure control; mA and/or kV adjustment per patient size (includes targeted exams where dose is matched to clinical indication); or iterative reconstruction. Contrast material: OMNIPAQUE 350; Contrast volume: 100 ml; Contrast route: INTRAVENOUS (IV); COMPARISON: CT abdomen pelvis w con* [id number] 05/25/2024 12:48 PM RADIATION DOSE METRICS: Total DLP (mGy-cm): 360.73 FINDINGS: Tubes, catheters and devices: Percutaneous feeding tube terminates at the 2nd duodenal segment. Percutaneous drainage catheter coils within the ventral abdomen anterior/external to the pancreatic collection, axial image 42 of series 4. Lungs: Right lower lobe calcified granuloma. Diaphragm: Small hiatal hernia. Liver: Normal. No mass. Gallbladder and biliary ducts: Unremarkable gallbladder. Stable mild common duct dilatation. No intrahepatic biliary ductal dilatation. Pancreas: Enlarged lobulated pancreatic fluid collection now with enhancing rim and internal gas lucencies measuring 16.2 x 9.9 cm on axial image 32 of series 4 and 19.5 cm in CC dimension on sagittal image 25 of series 7. There is mass effect on surrounding structures, to include decompressed stomach. Spleen: Normal. No splenomegaly. Adrenal glands: Normal. No mass. Kidneys and ureters: Bilateral renal subcentimeter hypodensities too small to characterize are statistically likely benign and require no dedicated imaging follow-up. Otherwise unremarkable. Stomach and bowel: No bowel dilatation to suggest obstruction. Colonic diverticulosis without findings of diverticulitis. Interval 1 cm long thin hyperdensity within the cecum. Appendix: No evidence of appendicitis. Intraperitoneal space: Minimal abdominopelvic free fluid. No free air. Vasculature: Mild systemic atherosclerosis without abdominal aortic aneurysm. Lymph nodes: Unremarkable. No enlarged lymph nodes. Urinary bladder: Unremarkable as visualized. Reproductive: Unremarkable as visualized. Bones/joints: No acute fracture. Degenerative changes along the imaged axial skeletal system and itwmj-cmatyil-snwc-left hips. Soft tissues: Unremarkable. CT/CT abdomen pelvis w con* [id number] IMPRESSION: 1. Increased size enlarged lobulated pancreatic fluid collection measuring up to 19.5 cm now with enhancing rim and internal gas lucencies suspicious for infected walled-off necrosis. Mass effect on surrounding structures, to include decompressed stomach. 2. Percutaneous drainage catheter coils within the ventral abdomen anterior/external to above pancreatic collection. 3. Percutaneous feeding tube terminates at the 2nd duodenal segment. 4. Stable mild common duct dilatation. 5. Interval 1 cm long thin hyperdensity within the cecum, correlate with procedural history. THIS REPORT CONTAINS FINDINGS THAT MAY BE CRITICAL TO PATIENT CARE. The findings were verbally communicated via telephone conference with NARENDRA CHAMORRO at 7:48 PM CDT on 07/31/2024. The findings were acknowledged and understood.
--- NOTE | 2024-07-31 17:16 | W.ED.NAVMDI ---
HPI - Nausea/Vomiting/Diarrhea General: Chief complaint: Nausea/Vomiting/Diarrhea Stated complaint: Vomitting Time Seen by Provider: 07/31/24 16:58 Source: patient Mode of arrival: ambulatory Limitations: no limitations History of Present Illness: 74-year-old female with extensive history of pancreatitis she had been transferred to [place] was there for 2 months discharge roughly over a month ago she has a feeding tube in place also has a pancreatic drain is still in place she is currently not on any antibiotics. She states that over the last few days she has been having vomiting has not been able to tolerate any p.o. and is feeling dehydrated she denies any severe abdominal pain denies any fevers. Associated nausea: Yes Associated symtoms: Reports nausea; Denies chest pain, dysuria or headache(s) Related Data Home Medications ?Medication ?Instructions ?Recorded ?Confirmed metronidazole 500 mg tablet 500 mg PO Q8H 07/19/24 07/19/24 Allergies Allergy/AdvReac Type Severity Reaction Status Date / Time No Known Allergies Allergy Verified 07/31/24 15:16 Review of Systems Const: Denies: fever(s), chills, body aches or change in appetite ENMT: Denies: throat pain or dental pain Card: Denies: chest pain Resp: Denies: dyspnea GI: Reports: nausea and vomiting; Denies: diarrhea : Denies: dysuria Musc: Denies: neck pain or back pain Skin/Breast: Denies: rash Neuro: Denies: headache(s) PFS ED PFSH: Medical History Hypertension Hyperlipidemia Surgical History History of tonsillectomy History of ear surgery RIGHT EAR DRUM Family History Denies family history of Diabetes CAD (coronary artery disease) Cancer Social History Smoking and tobacco/nicotine status: never used tobacco/nicotine Alcohol intake: current Alcohol intake frequency: holidays/special occasions only Physical Exam Const: COMMON NORMALS: no acute distress, patient oriented x3 and healthy appearing HENMT: COMMON NORMALS: normocephalic and atraumatic HEAD & SCALP: normocephalic and atraumatic Eye: COMMON NORMALS: conjunctivae normal CONJUNCTIVA: Yes conjunctivae normal Neck/C-Spine: COMMON NORMALS: full ROM and supple Chest: COMMONS NORMALS: normal inspection of the chest and normal palpation of entire chest wall Resp: COMMON NORMALS: normal respiratory effort, No retractions, No use of accessory muscles and clear to auscultation bilaterally AUSCULTATION: clear to auscultation bilaterally Cardio: COMMON NORMALS: regular rate, regular rhythm and No murmurs present (Cardio) RATE: regular rate RHYTHM: regular rhythm GI: COMMON NORMALS: Normal to inspection, nondistended, normoactive bowel sounds present, Soft to palpation, non-tender and no masses PALPATION: Yes Soft to palpation Extremity: COMMON NORMALS: normal to inspection and full ROM Neuro: COMMON NORMALS: patient oriented x3, moves all extremities and no focal motor deficits Psych: COMMON NORMALS: mental status grossly normal, Normal thought process present and cooperative THOUGHT PROCESS: Normal thought process present Skin: COMMON NORMALS: no rashes or lesions noted and no wounds GENERAL SKIN EXAM: no rashes or lesions noted Course Vital Signs: Vital signs: Vital Signs Temperature 97.6 F 07/31/24 15:07 Pulse Rate 90 07/31/24 19:34 Respiratory Rate 18 07/31/24 19:34 Blood Pressure 125/78 07/31/24 19:34 Pulse Oximetry 93 07/31/24 19:34 Oxygen Delivery Me thod Room Air 07/31/24 19:34 MDM - Nausea/Vomiting/Diarrhea Medical Decision Making Patient presents here with vomiting did CT her belly she has a large pancreatic fluid collection again the pancreatic drain does not appear to be in place I did speak to GI at [facility] where she was before I also spoke to the hospitalist will transfer back there for higher level care of GI no signs of infection at this point Medical Records I reviewed the patient's medical records. Lab Data I reviewed the patient's lab results. 07/31/24 15:38 07/31/24 15:38 Radiology Impressions Abdomen/Pelvis CT 07/31/24 17:00 IMPRESSION: 1. Increased size enlarged lobulated pancreatic fluid collection measuring up to 19.5 cm now with enhancing rim and internal gas lucencies suspicious for infected walled-off necrosis. Mass effect on surrounding structures, to include decompressed stomach. 2. Percutaneous drainage catheter coils within the ventral abdomen anterior/external to above pancreatic collection. 3. Percutaneous feeding tube terminates at the 2nd duodenal segment. 4. Stable mild common duct dilatation. 5. Interval 1 cm long thin hyperdensity within the cecum, correlate with procedural history. THIS REPORT CONTAINS FINDINGS THAT MAY BE CRITICAL TO PATIENT CARE. The findings were verbally communicated via telephone conference with NARENDRA CHAMORRO at 7:48 PM CDT on 07/31/2024. The findings were acknowledged and understood. Laboratory Results WBC 11.30 10^3/uL (3.29-11.43) 07/31/24 15:38 RBC 3.95 10^6/uL (3.85-5.65) 07/31/24 15:38 Hgb 11.20 g/dL (11.27-16.99) L 07/31/24 15:38 Hct 35.3 % (36-47) L 07/31/24 15:38 MCV 89.4 fl (85-98) 07/31/24 15:38 MCH 28.4 pg (27-33) 07/31/24 15:38 MCHC 31.7 g/dL (30-55) 07/31/24 15:38 RDW 14.8 % (12.1-15.1) 07/31/24 15:38 Plt Count 479 10^3/cmm (157-399) H 07/31/24 15:38 MPV 11.5 fL (7.4-10.4) H 07/31/24 15:38 Neut % (Auto) 75.5 % 07/31/24 15:38 Lymph % (Auto) 15.1 % 07/31/24 15:38 [place] % (Auto) 7.9 % 07/31/24 15:38 Eos % (Auto) 0.7 % 07/31/24 15:38 Baso % (Auto) 0.4 % 07/31/24 15:38 Neut # (Auto) 8.53 10^3/uL (1.8-7.7) H 07/31/24 15:38 Lymph # (Auto) 1.7 10^3/uL (0.8-4.8) 07/31/24 15:38 [place] # (Auto) 0.9 10^3/uL (0.2-0.9) 07/31/24 15:38 Eos # (Auto) 0.1 10^3/uL (0.0-0.8) 07/31/24 15:38 Baso # (Auto) 0.1 10^3/uL (0.0-0.1) 07/31/24 15:38 Nucleated RBC % (auto) 0 % 07/31/24 15:38 Nucleated RBCs # 0.0 /100WBC 07/31/24 15:38 Sodium 137 mmol/L (136-145) 07/31/24 15:38 Potassium 4.5 mmol/L (3.5-5.1) 07/31/24 15:38 Chloride 94 mmol/L (98-107) L 07/31/24 15:38 Carbon Dioxide 27 mmol/L (22-29) 07/31/24 15:38 Anion Gap 20.5 (5-19) H 07/31/24 15:38 BUN 32 mg/dL (8-23) H 07/31/24 15:38 Creatinine 0.8 mg/dL (0.5-0.9) 07/31/24 15:38 GFR Calculation Not Reportable 07/31/24 15:38 Glucose 353 mg/dL (65-115) H 07/31/24 15:38 Calculated Osmolality 305 mOsm/kg (285-295) H 07/31/24 15:38 Calcium 10.0 mg/dL (8.5-10.5) 07/31/24 15:38 Total Bilirubin 0.4 mg/dL (0.15-1.2) 07/31/24 15:38 AST 13 U/L (0-32) 07/31/24 15:38 ALT 10 U/L (0-33) 07/31/24 15:38 Alkaline Phosphatase 145 U/L (35-105) H 07/31/24 15:38 Total Protein 7.3 g/dL (6.6-8.7) 07/31/24 15:38 Albumin 3.4 g/dL (3.5-5.2) L 07/31/24 15:38 Globulin 3.9 g/dL (1.3-4.6) 07/31/24 15:38 Lipase 129 U/L (13-60) H 07/31/24 15:38 Urine Color Dark yellow (Yellow) A 07/31/24 18:13 Urine Appearance Clear (CLEAR) 07/31/24 18:13 Urine pH 5.5 (5-7) 07/31/24 18:13 Ur Specific [place] 1.035 (1.005-1.030) H 07/31/24 18:13 Urine Protein 2+ (Negative) A 07/31/24 18:13 Urine Glucose (UA) 3+ (Normal) H 07/31/24 18:13 Urine Ketones 1+ (Negative) H 07/31/24 18:13 Urine Blood Negative (Negative) 07/31/24 18:13 Urine Nitrate Negative (Negative) 07/31/24 18:13 Urine Bilirubin Negative (Negative) 07/31/24 18:13 Urine Urobilinogen 1.0 mg/dL (Negative) 07/31/24 18:13 Ur Leukocyte Esterase Negative (Negative) 07/31/24 18:13 Urine RBC 3-5 /hpf (0-2) 07/31/24 18:13 Urine WBC 0-5 /hpf (0-5) 07/31/24 18:13 Ur Squamous Epith Cells 6-10 /hpf (0-5) 07/31/24 18:13 Calcium Oxalate Crystal 40-55 /hpf H 07/31/24 18:13 Amorphous Sediment Not Reportable 07/31/24 18:13 Urine Bacteria None seen /hpf (NONE) 07/31/24 18:13 Hyaline Casts 7.42 /lpf 07/31/24 18:13 All radiology interpretation(s) finalized by discharge Discharge Plan Discharge Patient Disposition: Xfer Short-Term Hosp Clinical Impression: Peripancreatic fluid collection Condition: Stable Referrals: Ned Lynch DO [Primary Care Provider, [facility]] Print Language: Taiwanese Coding Level of Care Code ED Road Equipment Operator for Bran Almaraz
[2024-07-31] MEDS: ondansetron 2 mg/ML SDV 2 mL 4 MG IVP (17:37)
[2024-07-31] MEDS: sodium chloride 0.9% 1,000 ML 999 ML IV (17:37)
[2024-07-31 17:51] VITALS: BP 116/75; PULSE 93; O2SAT 96
[2024-07-31 18:19] LABS: Bilirubin Urine Negative (Negative); Blood Urine Negative (Negative); Glucose Urine UA 3+ (Normal); Ketones Urine 1+ (Negative); Leukocyte Esterase Urine Negative (Negative); Nitrate Urine Negative (Negative); Protein Urine 2+ (Negative); Urine Appearance Clear (CLEAR); Urine Color Dark Yellow (Yellow); pH Urine 5.5 (5-7)
[2024-07-31 18:24] LABS: Add Urine Microscopic? YES; Bacteria Urine None Seen /hpf; Hyaline Casts Urine 7.42 /lpf; WBC Urine 0-5 /hpf (0-5)
[2024-07-31] MEDS: iohexol 350 mg/mL 500 mL Btl (per mL) IV (18:25)
[2024-07-31 18:31] VITALS: BP 124/56; PULSE 95; O2SAT 98
[2024-07-31 18:34] LABS: Specific Gravity, Urine 1.035 (1.005-1.030)
[2024-07-31 18:35] LABS: Add Urine Culture? No; Calcium Oxalate Crystals Urine 40-55 /hpf
[2024-07-31 19:34] VITALS: BP 125/78; PULSE 90; RESP 18; O2SAT 93
[2024-07-31 21:30] VITALS: BP 135/84; PULSE 79; RESP 16; O2SAT 93
[2024-07-31 22:00] VITALS: BP 135/84; PULSE 85; RESP 16; O2SAT 95
[2024-07-31] MEDS: sodium chloride 0.9% 1,000 ML 125 ML IV (22:45)
[2024-08-01] VITALS (12 sets, daily range): BP systolic 97–139; BP diastolic 56–81; PULSE 77–97; RESP 16–18; O2SAT 93–97
--- NOTE | 2024-08-01 02:45 | PC.NURSE ---
pt transitioned to an inpatient bed for comfort until transfer.
[2024-08-01] MEDS: sodium chloride 0.9% 1,000 ML 125 ML IV ×2 (06:47→14:53)
[2024-08-01] MEDS: sodium chloride 0.9% 1,000 ML 75 ML IV (16:14)
--- NOTE | 2024-08-01 16:22 | PC.NURSE ---
PT DRAIN COLLECTION BAG EMPTIED, 190MLS EMPTIED.
[2024-08-01] MEDS: pantoprazole 40 mg SDV IVP (16:34)
[2024-08-01] MEDS: enoxaparin 40 mg/0.4 mL Syringe SUBCUT (16:35)
[2024-08-01 16:38] LABS: Estmated Average Glucose 197; Hemoglobin A1C 8.5 % (4.0-6.0)
[2024-08-01 16:58] LABS: Basophils # 0.1 10^3/uL (0.0-0.1); Basophils % 0.5 %; Eosinophils # 0.1 10^3/uL (0.0-0.8); Eosinophils % 1.2 %; Hematocrit 32.2 % (36-47); Lymphocytes # 1.3 10^3/uL (0.8-4.8); Lymphocytes % 12.3 %; Mean Corpuscular HGB Conc 31.4 g/dL (30-55); Mean Corpuscular Volume 92.5 fl (85-98); Mean Platelet Volume 11.2 fL (7.4-10.4); Monocytes # 0.9 10^3/uL (0.2-0.9); Monocytes % 8.4 %; Neutrophils # 7.92 10^3/uL (1.8-7.7); Neutrophils % 76.9 %; Nucleated Red Blood Cells % 0 %; Platelet Count 390 10^3/cmm (157-399); Red Blood Count 3.48 10^6/uL (3.85-5.65)
[2024-08-01 17:10] LABS: INR 1.12 (0.8-1.2)
--- NOTE | 2024-08-01 17:13 | PC.PHAR ---
Pt stated she takes no medications. Per provider on the floor, pt has antibiotics and diabetic medications from [facility]. Phoned their pharmacy and added all medications [facility] verified. Pt still states she takes no medications. No diabetic medications filled.
[2024-08-01 17:28] LABS: Procalcitonin 0.07 ng/mL (0-0.5); Thyroid Stimulating Hormone 0.82 uIU/mL (0.27-4.20)
[2024-08-01 17:41] LABS: Alanine Aminotransferase 8 U/L (0-33); Albumin Level 2.9 g/dL (3.5-5.2); Alkaline Phosphatase 103 U/L (35-105); Anion Gap 17.4 (5-19); Aspartate Amino Transferase 14 U/L (0-32); Blood Urea Nitrogen 27 mg/dL (8-23); Calcium 9.2 mg/dL (8.5-10.5); Carbon Dioxide 25 mmol/L (22-29); Chloride 105 mmol/L (98-107); Cholesterol 171 mg/dL (0-200); Creatinine Clr Calc Pharmacy 42.8391; Globulin 3.1 g/dL (1.3-4.6); Glucose 182 mg/dL (65-115); HDL Cholesterol 38 mg/dL (60-100); LDL Cholesterol Calculated 101 mg/dL (50-129); LDL HDL Ratio 2.66 RATIO (0.00-3.22); Lipase 89 U/L (13-60); Osmolality Calculated 306 mOsm/kg (285-295); Potassium 4.4 mmol/L (3.5-5.1); Sodium 143 mmol/L (136-145); Total Bilirubin 0.4 mg/dL (0.15-1.2); Triglycerides 161 mg/dL (0-150)
[2024-08-01] MEDS: scopolamine 1 mg PATCH 1 PATCH TRANSDERMA (17:48)
--- NOTE | 2024-08-01 18:06 | PM.CONSULT ---
Providers/Reason For Consult Consulting Physician/Specialty*: Emergency room Reason for Consult*: Pancreatic abscess Primary Care Provider: Ned Lynch DO History of Present Illness History of Present Illness Tracey Dolan is a 74 year old female with a past medical history of necrotizing pancreatitis she was recently discharged July 18, with a pancreatic drain in place, feeding tube placement on tube feeds during the night, who presents to [facility] due to intractable nausea, vomiting, fatigue, malaise. Patient tells me that since getting home from [facility] she continues to have intractable nausea, vomiting, poor appetite, inability to keep down solids or liquids. She tells me that she was not able to take most of her ciprofloxacin due to nausea vomiting, she has been taking her Flagyl, does report subjective fevers, chills. She tells me over the last few weeks her symptoms have progressed, she really does not have any abdominal pain per se, more nausea, vomiting, and inability to keep down solids or liquids. She tells me she has not been tolerating her tube feeds during the night, she tells me that they are typically associated with nausea and vomiting, she does also tell me that she feels that her pancreatic drain has slightly come down to the place, as the stitches have come apart. Currently patient is awaiting a bed at [facility], hospitalist team was called for medical management consultation while patient awaits a bed in the emergency room Medications/Allergies Home Medications ?Medication ?Instructions ?Recorded ?Confirmed ?Last Taken ?Type acetaminophen 500 mg tablet 500 mg PO Q6H PRN Pain 08/01/24 08/01/24 Unknown History ciprofloxacin HCl 750 mg tablet 750 mg PO Q12H [id number] 08/01/24 08/01/24 Unknown History metronidazole 500 mg tablet 500 mg PO Q8H x27 days 08/01/24 08/01/24 Unknown History ondansetron 4 mg disintegrating 4 mg PO Q4H PRN Nausea 08/01/24 08/01/24 Unknown History tablet oxycodone 5 mg tablet 5 mg PO Q6H PRN Pain 08/01/24 08/01/24 Unknown History simethicone 80 mg chewable tablet 80 mg PO QID PRN gas/bloating 08/01/24 08/01/24 Unknown History Allergies Allergy/AdvReac Type Severity Reaction Status Date / Time No Known Allergies Allergy Verified 07/31/24 15:16 Current Medications Generic Name Dose Route Start Last Admin Trade Name Freq PRN Reason Stop Dose Admin Enoxaparin Sodium 40 mg 08/01/24 16:00 08/01/24 16:35 Enoxaparin 40 Mg/0.4 Ml Syringe SUBCUT 40 mg Q24H HERB Administration Sodium Chloride 1,000 mls @ 75 mls/hr 08/01/24 16:00 08/01/24 16:14 Sodium Chloride 0.9% IV 75 mls/hr .[id number] HERB Administration Pantoprazole Sodium 40 mg 08/01/24 16:00 08/01/24 16:34 Pantoprazole 40 Mg Sdv IVP 40 mg Q12H HERB Administration PFSH Acute PFSH: Medical History Hypertension Hyperlipidemia Surgical History History of tonsillectomy History of ear surgery RIGHT EAR DRUM Family History Denies family history of Diabetes CAD (coronary artery disease) Cancer Social History Smoking and tobacco/nicotine status: never used tobacco/nicotine Alcohol intake: current Alcohol intake frequency: holidays/special occasions only Vitals/I&O/Wt Last Vital Signs Temp 97.6 F 07/31/24 15:07 Pulse 97 08/01/24 17:48 Resp 16 08/01/24 06:00 BP 121/81 08/01/24 17:48 Pulse Ox 96 08/01/24 17:46 O2 Del Method Room Air 08/01/24 17:46 08/01/24 08/01/24 08/01/24 06:59 14:59 22:59 Intake Total 1000 / 1000 1000 / 1000 1000 / 2000 Balance 1000 / 1000 1000 / 1000 1000 / 2000 Weight last 48 hrs Weight 45.359 kg Physical Exam Const: COMMON NORMALS: no acute distress and patient oriented x3 Eye: COMMON NORMALS: Equal, round and reactive pupils present and EOMs intact bilaterally PUPIL: Yes Equal, round and reactive pupils present Resp: COMMON NORMALS: normal respiratory effort, No retractions, No use of accessory muscles and clear to auscultation bilaterally AUSCULTATION: clear to auscultation bilaterally Cardio: COMMON NORMALS: regular rate, regular rhythm, S1 normal heart sound present and S2 normal heart sound present RATE: regular rate RHYTHM: regular rhythm HEART SOUNDS: S1 normal heart sound present and S2 normal heart sound present GI: COMMON NORMALS: Normal to inspection, nondistended, normoactive bowel sounds present and non-tender OTHER: Feeding tube in place Pancreatic drain in place Extremity: COMMON NORMALS: no pedal edema Neuro: COMMON NORMALS: patient oriented x3, CN's II-XII intact bilaterally and moves all extremities Psych: COMMON NORMALS: mental status grossly normal Data 08/01/24 16:37 08/01/24 16:37 Micro: Microbiology 08/01/24 16:45 Blood Culture - Preliminary Blood SPECIMEN COLLECTED 08/01/24 16:37 Blood Culture - Preliminary Blood SPECIMEN COLLECTED A&P Assessment and plan (1) Pancreatic abscess: (2) Pancreatic necrosis: (3) Peripancreatic fluid collection: (4) Transaminitis: (5) Acute pancreatitis: (6) Intractable nausea and vomiting: Plan Concern for pancreatic abscess, with pancreatic necrosis, acute on chronic pancreatitis, intractable nausea vomiting CT/CT abdomen pelvis w con* [id number] IMPRESSION: 1. Increased size enlarged lobulated pancreatic fluid collection measuring up to 19.5 cm now with enhancing rim and internal gas lucencies suspicious for infected walled-off necrosis. Mass effect on surrounding structures, to include decompressed stomach. 2. Percutaneous drainage catheter coils within the ventral abdomen anterior/external to above pancreatic collection. 3. Percutaneous feeding tube terminates at the 2nd duodenal segment. 4. Stable mild common duct dilatation. 5. Interval 1 cm long thin hyperdensity within the cecum, correlate with procedural history. Plan - Continue clears for now - Zofran, Reglan for nausea - IV fluids - Morphine for pain - Follow blood cultures - Continue vancomycin, Zosyn - Patient is DNR/DNI, confirmed with patient multiple times - Lovenox for DVT prophylaxis PDMP PDMP Reviewed: Not Reviewed Consult Attestations Medical Necessity Statement: Patient requires hospitalization for pancreatic abscess, acute on chronic pancreatitis, intractable nausea vomiting Diagnoses Pancreatic abscess K85.90 Pancreatic necrosis K86.89 Peripancreatic fluid collection K86.89 Transaminitis R74.01 Acute pancreatitis K85.90 Intractable nausea and vomiting R11.2
--- NOTE | 2024-08-01 18:46 | PHA.VACGOAL ---
Vancomycin Goal - Goal Vancomycin Goal:: 15-20 mg/L Vancomycin Indication:: Other (Pancreatic abscess) - Therapy Current therapy:: Pip/Tazo Day of therpy:: Day []of [] . Actual body weight (kg): 45.359 kg - Data Labs: WBC 10.30 10^3/uL (3.29-11.43) 08/01/24 16:37 RBC 3.48 10^6/uL (3.85-5.65) L 08/01/24 16:37 Hgb 10.10 g/dL (11.27-16.99) L 08/01/24 16:37 Hct 32.2 % (36-47) L 08/01/24 16:37 MCV 92.5 fl (85-98) 08/01/24 16:37 MCH 29.0 pg (27-33) 08/01/24 16:37 MCHC 31.4 g/dL (30-55) 08/01/24 16:37 RDW 15.0 % (12.1-15.1) 08/01/24 16:37 Sodium 143 mmol/L (136-145) 08/01/24 16:37 Potassium 4.4 mmol/L (3.5-5.1) 08/01/24 16:37 Chloride 105 mmol/L (98-107) 08/01/24 16:37 Carbon Dioxide 25 mmol/L (22-29) 08/01/24 16:37 Anion Gap 17.4 (5-19) 08/01/24 16:37 BUN 27 mg/dL (8-23) H 08/01/24 16:37 Creatinine 0.6 mg/dL (0.5-0.9) 08/01/24 16:37 GFR Calculation Not Reportable 08/01/24 16:37 Treatment plan:: new consult Regimen:: New start vancomycin for Pancreatic abscess. No prior history of vancomycin found. 1000 mg load dose ordered. Started on maintenance dose of 750 mg q12h.
[2024-08-01 18:51] LABS: Glucose Point of Care 154 mg/dL (70-110)
[2024-08-01] MEDS: insulin lispro 100 unit/1 mL SUBCUT (19:27)
[2024-08-01] MEDS: VANCOMYCIN ADD-Vantage 1,000 MG in 0.9% NaCl ADD-Vantage 250 ML 250 MG IV (19:27)
[2024-08-01] MEDS: piperacillin-tazobactam 3.375 GM in sodium chloride 0.9% (plus) 50 ML IV (20:34)
[2024-08-01 22:29] LABS: Bilirubin Urine Negative (Negative); Blood Urine Negative (Negative); Glucose Urine UA Negative (Normal); Ketones Urine Trace (Negative); Leukocyte Esterase Urine Negative (Negative); Nitrate Urine Negative (Negative); Protein Urine Trace (Negative); Specific Gravity, Urine 1.022 (1.005-1.030); Urine Appearance Clear (CLEAR); Urine Color Yellow (Yellow)
[2024-08-01 22:34] LABS: Add Urine Microscopic? YES; Bacteria Urine None Seen /hpf; Hyaline Casts Urine 5.36 /lpf; RBC Urine 0-2 /hpf (0-2); WBC Urine 0-5 /hpf (0-5)
[2024-08-02] VITALS (8 sets, daily range): BP systolic 98–142; BP diastolic 47–89; PULSE 85–100; RESP 15–21; TEMP 36.6; O2SAT 93–100
[2024-08-02] MEDS: piperacillin-tazobactam 3.375 GM in sodium chloride 0.9% (plus) 50 ML IV ×3 (03:55→19:09)
[2024-08-02] MEDS: pantoprazole 40 mg SDV IVP ×2 (03:56→16:18)
--- NOTE | 2024-08-02 05:01 | PC.NURSE ---
updates given to [facility] at this time, AM labs drawn and pt updated on POC. will continue to monitor.
[2024-08-02 05:06] LABS: Basophils # 0.1 10^3/uL (0.0-0.1); Basophils % 0.5 %; Eosinophils # 0.2 10^3/uL (0.0-0.8); Eosinophils % 1.3 %; Hematocrit 32.1 % (36-47); Lymphocytes # 0.8 10^3/uL (0.8-4.8); Lymphocytes % 6.1 %; Mean Corpuscular HGB Conc 30.8 g/dL (30-55); Mean Corpuscular Hemoglobin 28.2 pg (27-33); Mean Corpuscular Volume 91.5 fl (85-98); Mean Platelet Volume 11.3 fL (7.4-10.4); Monocytes # 0.9 10^3/uL (0.2-0.9); Monocytes % 7.2 %; Neutrophils # 10.75 10^3/uL (1.8-7.7); Neutrophils % 84.4 %; Nucleated Red Blood Cells % 0 %; Platelet Count 360 10^3/cmm (157-399); Red Blood Count 3.51 10^6/uL (3.85-5.65); Red Cell Distribution Width 14.6 % (12.1-15.1); White Blood Count 12.72 10^3/uL (3.29-11.43)
[2024-08-02 05:22] LABS: Alanine Aminotransferase 7 U/L (0-33); Albumin Level 2.7 g/dL (3.5-5.2); Alkaline Phosphatase 96 U/L (35-105); Anion Gap 14.2 (5-19); Aspartate Amino Transferase 14 U/L (0-32); Blood Urea Nitrogen 23 mg/dL (8-23); Carbon Dioxide 27 mmol/L (22-29); Chloride 102 mmol/L (98-107); Creatinine Clr Calc Pharmacy 42.8391; Globulin 2.9 g/dL (1.3-4.6); Glucose 127 mg/dL (65-115); Magnesium 1.9 mg/dL (1.7-2.3); Osmolality Calculated 293 mOsm/kg (285-295); Potassium 4.2 mmol/L (3.5-5.1); Sodium 139 mmol/L (136-145); Total Bilirubin 0.4 mg/dL (0.15-1.2); Total Protein 5.6 g/dL (6.6-8.7)
[2024-08-02] MEDS: sodium chloride 0.9% 1,000 ML 75 ML IV ×2 (06:07→19:09)
--- NOTE | 2024-08-02 07:05 | PC.NURSE ---
this nurse assumed care @[id number]
[2024-08-02] MEDS: VANCOMYCIN ADD-Vantage 750 MG in 0.9% NaCl ADD-Vantage 250 ML 250 MG IV (07:29)
--- NOTE | 2024-08-02 07:55 | PC.NURSE ---
glucose 177 via FS @4116
[2024-08-02 07:58] LABS: Glucose Point of Care 177 mg/dL (70-110)
[2024-08-02] MEDS: insulin lispro 100 unit/1 mL SUBCUT ×2 (07:59→17:42)
[2024-08-02] MEDS: acetaminophen 325 mg Tablet 650 MG PO (08:00)
--- NOTE | 2024-08-02 09:56 | PC.NURSE ---
pt's called and updated on pt status and treatment
--- NOTE | 2024-08-02 11:35 | PC.NURSE ---
glucose 138 via FS @1130
--- NOTE | 2024-08-02 11:35 | PC.NURSE ---
family in room, updated on status of acceptance transfer, pt and family denies further needs/questions at this time.
--- NOTE | 2024-08-02 14:30 | PC.NURSE ---
approx 100mL output from pancreatic drain
--- NOTE | 2024-08-02 14:30 | PC.NURSE ---
updated pt and family on transfer updates. no further questions.
--- NOTE | 2024-08-02 15:37 | P.PN_ITS ---
Subjective 2 Subjective: patient was seen this morning, no fever, no chills, no lightheadedness, does have neck spasms, no headaache, she is passing gas, no bowel movment, no abdominal pain, tolerating clear liquids Vitals/I&O/Wt Last Vital Signs Temp 97.8 F 08/02/24 05:30 Pulse 85 08/02/24 13:36 Resp 15 08/02/24 13:36 BP 115/64 08/02/24 13:36 Pulse Ox 100 08/02/24 13:36 O2 Del Method Room Air 08/02/24 13:36 08/02/24 08/02/24 08/02/24 06:59 14:59 22:59 Intake Total 1050 / 3050 300 / 300 50 / 350 Balance 1050 / 3050 300 / 300 50 / 350 Physical Exam 2 Const: COMMON NORMALS: no acute distress and patient oriented x3 Resp: COMMON NORMALS: normal respiratory effort, No retractions, No use of accessory muscles and clear to auscultation bilaterally AUSCULTATION: clear to auscultation bilaterally Cardio: COMMON NORMALS: regular rate, regular rhythm, S1 normal heart sound present and S2 normal heart sound present RATE: regular rate RHYTHM: r egular rhythm HEART SOUNDS: S1 normal heart sound present and S2 normal heart sound present GI: OTHER: tube feed drain in place, clean and dry pancreatic drain in place Extremity: COMMON NORMALS: no pedal edema Neuro: COMMON NORMALS: patient oriented x3 Psych: COMMON NORMALS: mental status grossly normal Data 08/02/24 04:58 08/02/24 04:58 Micro: Microbiology 08/01/24 16:45 Blood Culture - Preliminary Blood SPECIMEN COLLECTED 08/01/24 16:37 Blood Culture - Preliminary Blood SPECIMEN COLLECTED A&P Assessment and plan (1) Pancreatic abscess: (2) Pancreatic necrosis: (3) Peripancreatic fluid collection: (4) Transaminitis: (5) Acute pancreatitis: (6) Intractable nausea and vomiting: Plan Concern for pancreatic abscess, with pancreatic necrosis, acute on chronic pancreatitis, intractable nausea vomiting CT/CT abdomen pelvis w con* [id number] IMPRESSION: 1. Increased size enlarged lobulated pancreatic fluid collection measuring up to 19.5 cm now with enhancing rim and internal gas lucencies suspicious for infected walled-off necrosis. Mass effect on surrounding structures, to include decompressed stomach. 2. Percutaneous drainage catheter coils within the ventral abdomen anterior/external to above pancreatic collection. 3. Percutaneous feeding tube terminates at the 2nd duodenal segment. 4. Stable mild common duct dilatation. 5. Interval 1 cm long thin hyperdensity within the cecum, correlate with procedural history. Plan - Continue clears for now - Zofran, Reglan for nausea - IV fluids - Morphine for pain - Follow blood cultures - Continue vancomycin, Zosyn -type 2 diabetes - Patient is DNR/DNI, confirmed with patient multiple times - Lovenox for DVT prophylaxis -awaiting a bed at [facility] PDMP PDMP Reviewed: Not Reviewed Attestations 2 Medical Necessity Statement*: Patient has a history of a pancreatic abscess, awaiting a bed at [facility] Diagnoses Pancreatic abscess K85.90 Pancreatic necrosis K86.89 Peripancreatic fluid collection K86.89 Transaminitis R74.01 Acute pancreatitis K85.90 Intractable nausea and vomiting R11.2
[2024-08-02] MEDS: enoxaparin 40 mg/0.4 mL Syringe SUBCUT (16:18)
--- NOTE | 2024-08-02 16:19 | PC.NURSE ---
this nurse spoke with intake nurse at [facility] @3533, gave patient condition update and [facility] intake nurse states [facility] is still at capacity at this time and [facility] would contact us with any changes.
[2024-08-02] MEDS: ondansetron 2 mg/ML SDV 2 mL 4 MG IVP (17:43)
--- NOTE | 2024-08-02 17:43 | PC.NURSE ---
pt appears flush, warm to touch. temp 99.1 orally. pt updated on transfer status and conversation with [facility]. no further questions. pt c/o feeling nauseous, admin PRN [place], see MAR.
[2024-08-02 21:19] LABS: Glucose Point of Care 138 mg/dL (70-110)
[2024-08-02 22:21] LABS: Glucose Point of Care 125 mg/dL (70-110)
[2024-08-03] VITALS (7 sets, daily range): BP systolic 97–122; BP diastolic 62–79; PULSE 86–98; RESP 15–20; TEMP 37.1; O2SAT 93–98
[2024-08-03] MEDS: VANCOMYCIN ADD-Vantage 750 MG in 0.9% NaCl ADD-Vantage 250 ML 250 MG IV ×2 (00:28→19:59)
[2024-08-03] MEDS: piperacillin-tazobactam 3.375 GM in sodium chloride 0.9% (plus) 50 ML IV ×3 (02:58→21:07)
[2024-08-03 04:47] LABS: Basophils # 0.1 10^3/uL (0.0-0.1); Basophils % 0.8 %; Eosinophils # 0.5 10^3/uL (0.0-0.8); Eosinophils % 4.8 %; Hematocrit 32.7 % (36-47); Lymphocytes # 0.5 10^3/uL (0.8-4.8); Lymphocytes % 5.4 %; Mean Corpuscular HGB Conc 30.6 g/dL (30-55); Mean Corpuscular Hemoglobin 28.9 pg (27-33); Mean Corpuscular Volume 94.5 fl (85-98); Mean Platelet Volume 11.4 fL (7.4-10.4); Monocytes # 0.5 10^3/uL (0.2-0.9); Monocytes % 5.7 %; Neutrophils # 7.73 10^3/uL (1.8-7.7); Neutrophils % 82.8 %; Nucleated Red Blood Cells % 0 %; Platelet Count 294 10^3/cmm (157-399); Red Blood Count 3.46 10^6/uL (3.85-5.65); Red Cell Distribution Width 14.8 % (12.1-15.1); White Blood Count 9.33 10^3/uL (3.29-11.43)
[2024-08-03 05:07] LABS: Alanine Aminotransferase 8 U/L (0-33); Albumin Level 2.6 g/dL (3.5-5.2); Alkaline Phosphatase 150 U/L (35-105); Anion Gap 15.8 (5-19); Aspartate Amino Transferase 18 U/L (0-32); Blood Urea Nitrogen 17 mg/dL (8-23); Calcium 8.7 mg/dL (8.5-10.5); Carbon Dioxide 24 mmol/L (22-29); Chloride 103 mmol/L (98-107); Creatinine Clr Calc Pharmacy 42.8391; Glucose 125 mg/dL (65-115); Magnesium 1.8 mg/dL (1.7-2.3); Osmolality Calculated 291 mOsm/kg (285-295); Phosphorus 3.4 mg/dL (2.5-4.5); Potassium 3.8 mmol/L (3.5-5.1); Sodium 139 mmol/L (136-145); Total Bilirubin 0.4 mg/dL (0.15-1.2); Total Protein 5.6 g/dL (6.6-8.7)
[2024-08-03] MEDS: pantoprazole 40 mg SDV IVP ×2 (05:08→16:53)
[2024-08-03] MEDS: acetaminophen 325 mg Tablet 650 MG PO (05:09)
--- NOTE | 2024-08-03 07:34 | PC.NURSE ---
pt updated on status of transfer; pt denies any further needs at this time.
[2024-08-03 07:37] LABS: Glucose Point of Care 111 mg/dL (70-110)
[2024-08-03] MEDS: sodium chloride 0.9% 1,000 ML 75 ML IV ×2 (08:45→22:37)
[2024-08-03 12:11] LABS: Glucose Point of Care 154 mg/dL (70-110)
[2024-08-03] MEDS: insulin lispro 100 unit/1 mL SUBCUT (12:14)
--- NOTE | 2024-08-03 14:24 | P.PN_ITS ---
Subjective 2 Subjective: Patient was seen this morning, currently alert oriented x 3, following all commands she is sitting to the commode she feels like she is having a bowel movement, is passing gas from below, she did have episodes of nausea yesterday but under control, no fevers, no chills, does have abdominal pain although improved Vitals/I&O/Wt Last Vital Signs Temp 97.8 F 08/02/24 05:30 Pulse 87 08/03/24 12:09 Resp 18 08/03/24 12:09 BP 120/79 08/03/24 12:09 Pulse Ox 95 08/03/24 12:09 O2 Del Method Room Air 08/03/24 11:48 08/02/24 08/03/24 08/03/24 22:59 06:59 14:59 Intake Total 1027.5 / 1327.5 300 / 1627.5 1050 / 1050 Balance 1027.5 / 1327.5 300 / 1627.5 1050 / 1050 Physical Exam 2 Const: COMMON NORMALS: no acute distress and patient oriented x3 Resp: COMMON NORMALS: normal respiratory effort, No retractions, No use of accessory muscles and clear to auscultation bilaterally AUSCULTATION: clear to auscultation bilaterally Cardio: COMMON NORMALS: regular rate, regular rhythm, S1 normal heart sound present and S2 normal heart sound present RATE: regular rate RHYTHM: r egular rhythm HEART SOUNDS: S1 normal heart sound present and S2 normal heart sound present GI: COMMON NORMALS: Normal to inspection, nondistended, normoactive bowel sounds present and non-tender OTHER: Pancreatic drain in place, feeding tube in place Extremity: COMMON NORMALS: no pedal edema Neuro: COMMON NORMALS: patient oriented x3 Psych: COMMON NORMALS: mental status grossly normal Data 08/03/24 04:15 08/03/24 04:15 Micro: Microbiology 08/01/24 16:37 Blood Culture - Preliminary Blood NEGATIVE TO DATE 08/01/24 16:45 Blood Culture - Preliminary Blood NEGATIVE TO DATE A&P Assessment and plan (1) Pancreatic abscess: (2) Pancreatic necrosis: (3) Peripancreatic fluid collection: (4) Transaminitis: (5) Acute pancreatitis: (6) Intractable nausea and vomiting: Plan Concern for pancreatic abscess, with pancreatic necrosis, acute on chronic pancreatitis, intractable nausea vomiting CT/CT abdomen pelvis w con* [id number] IMPRESSION: 1. Increased size enlarged lobulated pancreatic fluid collection measuring up to 19.5 cm now with enhancing rim and internal gas lucencies suspicious for infected walled-off necrosis. Mass effect on surrounding structures, to include decompressed stomach. 2. Percutaneous drainage catheter coils within the ventral abdomen anterior/external to above pancreatic collection. 3. Percutaneous feeding tube terminates at the 2nd duodenal segment. 4. Stable mild common duct dilatation. 5. Interval 1 cm long thin hyperdensity within the cecum, correlate with procedural history. Plan - Continue clears for now - Zofran, Reglan for nausea - IV fluids - Morphine for pain - Follow blood cultures - Continue vancomycin, Zosyn -type 2 diabetes - Patient is DNR/DNI, confirmed with patient multiple times - Lovenox for DVT prophylaxis -awaiting a bed at [facility] PDMP PDMP Reviewed: Not Reviewed Attestations 2 Medical Necessity Statement*: Patient requires hospitalization for pancreatic abscess, pancreatic necrosis Diagnoses Pancreatic abscess K85.90 Pancreatic necrosis K86.89 Peripancreatic fluid collection K86.89 Transaminitis R74.01 Acute pancreatitis K85.90 Intractable nausea and vomiting R11.2
[2024-08-03] MEDS: enoxaparin 40 mg/0.4 mL Syringe SUBCUT (16:53)
--- NOTE | 2024-08-03 16:53 | PC.NURSE ---
updated pt on status of transfer to [facility]; no further questions on transfer status; pt and family share concern of lack out output from pancreatic drain. last known output was yesterday (see notes) with 100mL. pt denies pain to area. attempted to contact Dr. Blanchard, no answer at this time.
--- NOTE | 2024-08-03 17:05 | PC.NURSE ---
per Dr. Blanchard absence of drainage from pancreatic drain is not an increased concern, pt's drain is misplaced and it is an expected finding at this time, will need to be surgically placed back in correct spot.
[2024-08-03 18:19] LABS: Glucose Point of Care 96 mg/dL (70-110)
[2024-08-03 22:46] LABS: Glucose Point of Care 120 mg/dL (70-110)
== END 2024-08-03 23:57 | disposition short-term general hospital (02) ==
PROVIDERS: Family Medicine; Emergency Provider Emergency Medicine; PCP Family Medicine
DX: K86.89 Other specified diseases of pancreas (principal); R11.2 Nausea with vomiting, unspecified; R19.7 Diarrhea, unspecified; I10 Essential (primary) hypertension; E78.5 Hyperlipidemia, unspecified
CPT/HCPCS: 36415; 36416; 74177; 80053; 80061; 81001; 82962; 83036; 83605; 83690; 83735; 84100; 84145; 84443; 85025; 85610; 86140; 87040; 94664; 96365; 96366; 96367; 96372; 96375; 96376; 99285; J1650; J1815; J2405; J2470; J2543; J3370; J7030; J7050; J9999

== ENCOUNTER 2024-09-07 15:27 | Outpatient (CLI) | payer OTHER, SELFPAY ==
--- NOTE | 2024-09-07 15:43 | CTR_ITS ---
PROCEDURE INFORMATION: Exam: CT Abdomen And Pelvis With Contrast Exam date and time: 09/07/2024 4:07 PM Age: 74 years old Clinical indication: Condition or disease; Pancreatic condition; Other: Acute necrotizing pancreatitis; Prior surgery; Surgery date: 6+ months; Surgery type: Feeding tubes, drainage stents; Complex pancreatitis with walled off necrosis and abdominal fluid collection TECHNIQUE: Imaging protocol: Computed tomography of the abdomen and pelvis with contrast. Radiation optimization: All CT scans at this facility use at least one of these dose optimization techniques: automated exposure control; mA and/or kV adjustment per patient size (includes targeted exams where dose is matched to clinical indication); or iterative reconstruction. Contrast material: OMNI 350; Contrast volume: 100 ml; Contrast route: INTRAVENOUS (IV); COMPARISON: CT abdomen pelvis w con* [id number] 07/31/2024 6:22 PM RADIATION DOSE METRICS: Total DLP (mGy-cm): 244.92 FINDINGS: Lungs: There is subsegmental atelectasis in the lung bases. Liver: The liver is normal. Gallbladder and biliary ducts: The gallbladder is distended. No other sign of cholecystitis. There is no intrahepatic or extrahepatic bile duct dilation. Pancreas: There has been interval drainage of the large pancreatic/peripancreatic fluid collection visible on 07/31/2024 which currently measures 2.5 x 2.3 x 5.3 cm (compared to 18.4 x 16.2 x 9.8 cm on the prior). The collection is drained by 3 pigtail stents with the distal portions in the upper aspect of the fluid collection and proximal portions appropriately positioned in the gastric fundal lumen. The pancreatic head and neck is unremarkable. The body and tail are obscured by beam hardening artifact from multiple drains. Spleen: The spleen is normal in size and enhances normally. Adrenal glands: The adrenal glands are unremarkable. Kidneys and ureters: There is an intermediate density 12 mm complicated cyst or nodule in the right kidney. The left kidney and ureter are unremarkable. There is no hydronephrosis or ureteral dilation. Stomach and bowel: The percutaneous gastroduodenal tube is appropriately positioned, with the tip extending into the transverse duodenum. The stomach is nondistended. The small bowel is nondilated. There is mild sigmoid colonic diverticulosis without evidence of diverticulitis. Appendix: No sign of acute appendicitis. Intraperitoneal space: There is no free air or significant intraperitoneal free fluid. There is mesenteric scarring adjacent to the pancreatic tail and splenic hilum. 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 There is marked mucosal hyperemia at the fundus due to submucosal varices. There are also omental and perigastric varices. The portal and superior mesenteric veins are patent. There is mild aortic atherosclerotic disease. Lymph nodes: There is no lymphadenopathy in the retroperitoneum, mesentery, pelvis or inguinal regions. Urinary bladder: The urinary bladder is decompressed, preventing meaningful evaluation of the wall. Reproductive: The uterus is unremarkable. There is no adnexal mass or large cyst. Bones/joints: There is moderate degenerative disease in the lumbar spine. There is moderate degenerative disease of the right hip. The bony pelvis is intact. Soft tissues: The abdominal wall is intact. CT/CT abdomen pelvis w con* [id number] IMPRESSION: 1. Interval drainage of pancreatic/peripancreatic fluid collection to the stomach, with markedly decreased size of the collection since 07/31/2024. Details above. 2. 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 3. 12 mm complicated cyst or solid nodule in the right kidney. Recommend non-emergent MRI without and with contrast or non-emergent CT without and with contrast. MRI is preferred for masses under 1.5 cm. There is no hydronephrosis or stones. 4. Incidental findings above. COMMENTS: Consistent with the [employer]'s Incidental Findings Committee white paper (J Am Catalina Radiol 2018): Any incidental renal lesion less than 1 cm or classified as too small to characterize, or any incidental cystic renal lesion characterized as simple-appearing, is likely benign. No follow-up imaging is recommended for these lesions per consensus recommendations based on imaging criteria.
== END 2024-09-07 15:28 | disposition home or self-care (01) ==
LOC: RAD 15:30
PROVIDERS: PCP Family Medicine; Visit Provider Internal Medicine Nephrology
DX: K85.92 Acute pancreatitis with infected necrosis, unspecified (principal); K57.90 Diverticulosis of intestine, part unspecified, without perforation or abscess without bleeding; M51.369 Other intervertebral disc degeneration, lumbar region without mention of lumbar back pain or lower extremity pain; M16.11 Unilateral primary osteoarthritis, right hip; I70.0 Atherosclerosis of aorta
CPT/HCPCS: 74177

== ENCOUNTER → 2024-10-11 08:45 | Outpatient (BNVA) | payer OTHER, SELFPAY | PROVIDERS: PCP Family Medicine; Visit Provider Nurse Practitioner Family | DX: Z51.81 Encounter for therapeutic drug level monitoring (principal) | CPT/HCPCS: 80053; 85025 ==

== ENCOUNTER → 2024-12-05 09:00 | Outpatient (BNVA) | payer OTHER, SELFPAY | PROVIDERS: PCP Nurse Practitioner Family; Visit Provider Nurse Practitioner Family | DX: R73.09 Other abnormal glucose (principal) | CPT/HCPCS: 80053; 82043; 83036; 85025 ==

== ENCOUNTER 2024-12-06 08:14 | Outpatient (CLI) | payer OTHER, SELFPAY ==
--- NOTE | 2024-12-06 08:30 | CT_ITS ---
WS: [id number] CT ABDOMEN AND PELVIS NONCONTRAST HISTORY: K86.89 - Other specified diseases of pancreas TECHNIQUE: Imaging performed through the abdomen and pelvis. Coronal and sagittal reformats are submitted. All CT scans at [facility] use at least one of these dose optimization techniques: automated exposure control; mA and/or kV adjustment per patient size (includes targeted exams where dose is matched to clinical indication); or iterative reconstruction. DLP: 251.57 mGy.cm COMPARISON: 07/31/2024, 09/07/2024 Lower thorax: Benign granuloma RIGHT lower lobe. Heart is normal size. Small hiatal hernia. Liver: Normal size liver. No mass or bile duct dilatation. Gallbladder: Slightly hydropic gallbladder. There is a focus within the gallbladder which is probably a small stone. Pancreas: Pancreas is difficult to visualize without IV contrast. There is a small caliber pancreas. There is an internal pigtail catheter extending between the stomach and the previously described pancreatic collection. The remaining drainage catheters have been removed. No adjacent inflammation. Without IV contrast cannot identify areas of residual collection. Patient has extensive gastric and splenic varices. Spleen: Normal. Adrenal glands: Normal. No mass. Right kidney: Normal size kidney with no mass or hydronephrosis. Previously described complicated cyst or solid nodule in the lower pole is not visualized by unenhanced CT. Left kidney: Normal size kidney with no mass or hydronephrosis. Aorta: Mild atherosclerosis abdominal aorta with no aneurysm. No free fluid, intraperitoneal air or significant lymphadenopathy. GI tract: Mild gastric wall thickening. Patient has known gastric wall varices which have been previously described. No small bowel obstruction. No colon obstruction. Diffuse constipation. Mild diverticular burden without acute diverticulitis in the sigmoid. Abdominal wall: Small umbilical hernia contains fat only. Pelvis: No fluid or adenopathy. Minimally distended urinary bladder. Osseous structures: Degenerative scoliosis lumbar spine. CT/CT abdomen pelvis wo con [id number] IMPRESSION: 1. Internal pigtail catheter extends between the stomach and the previously de scribed peripancreatic fluid collection. No residual collection identified on t his unenhanced exam. 2. Percutaneous gastroduodenal tube has been removed. 3. Mildly distended gallbladder with tiny stone. No acute cholecystitis. 4. Pancreas is difficult to visualize without IV contrast. No adjacent or enla rging fluid collection is identified. 5. Marked splenic and gastric varices reidentified.
== END 2024-12-06 08:15 | disposition home or self-care (01) ==
LOC: RAD 08:18
PROVIDERS: PCP Nurse Practitioner Family; Visit Provider Family Medicine
DX: K86.89 Other specified diseases of pancreas (principal); R91.8 Other nonspecific abnormal finding of lung field; K44.9 Diaphragmatic hernia without obstruction or gangrene; K59.00 Constipation, unspecified; K57.30 Diverticulosis of large intestine without perforation or abscess without bleeding; K42.9 Umbilical hernia without obstruction or gangrene; M41.56 Other secondary scoliosis, lumbar region
CPT/HCPCS: 74176

== ENCOUNTER → 2025-03-02 09:45 | Outpatient (BNVA) | payer OTHER, SELFPAY | PROVIDERS: PCP Nurse Practitioner Family; Visit Provider Nurse Practitioner Family | DX: E11.9 Type 2 diabetes mellitus without complications (principal) | CPT/HCPCS: 80053; 80061; 83036 ==